=== PATIENT | male | born 1990 | race Caucasian/White ===

== ENCOUNTER 2017-11-08 10:11 | Inpatient (IN) | payer OTHER ==
[2017-11-08 10:50] VITALS: BMI 28.6
--- NOTE | 2017-11-08 11:07 | HP ---
CIWA Score - CIWA Score Nausea/Vomitin-Mild Nausea/No Vomiting Muscle Tremors: 4-Moderate,w/Arms Extend Anxiety: 4-Mod. Anxious/Guarded Agitation: 4-Moderately Restless Paroxysmal Sweats: 3 Orientation: 0-Oriented Tacttile Disturbances: 0-None Auditory Disturbances: 0-None Visual Disturbances: 0-None Headache: 2-Mild CIWA-Ar Total Score: 18 Admission ROS S - HPI Chief Complaint: I am sick of doing this abuse and I dont want to . Allergies/Adverse Reactions: Allergies Allergy/AdvReac Type Severity Reaction Status Date / Time Sulfa (Sulfonamide AdvReac Verified 11/08/17 10:58 Antibiotics) History of Present Illness: Pt is a 27yr old male with a history of benzodiazapine dependence seeking detox for treatment. Pt belongs to a [facility] MMTP he received last dose of methadone of 160mg yesterday and was given 2 take home bottles. However today he states his two take home bottles are empty and cannot remember what happened because he was intoxicated. Pt has two empty bottles in his possession. Pt is aware he cannot get medicated until his dose becomes verified. Exam Limitations: No Limitations - Ebola screening Have you traveled outside of the country in the last 21 days: No (N) Have you had contact with anyone from an Ebola affected area: No Have you been sick,other than usual withdrawal symptoms: No Do you have a fever: No - Review of Systems Constitutional: Chills, Diaphoresis, Night Sweats EENT: reports: Tearing, Nose Congestion Respiratory: reports: No Symptoms reported Cardiac: reports: Syncope GI: reports: Nausea, Poor Appetite, Poor Fluid Intake : reports: No Symptoms Reported Musculoskeletal: reports: Back Pain Integumentary: reports: Flushing, Sweating Neuro: reports: Tingling, Tremors Endocrine: reports: Excessive Sweating, Flushing, Intolerance to Cold, Intolerance to Heat Hematology: reports: No Symptoms Reported Psychiatric: reports: Judgement Intact, Mood/Affect Appropiate, Orientated x3, Agitated, Anxious Other Systems: Reviewed and Negative Patient History - Patient Medical History Hx Anemia: No Hx Asthma: No Hx Chronic Obstructive Pulmonary Disease (COPD): No Hx Cancer: No Hx Cardiac Disorders: No Hx Congestive Heart Failure: No Hx Hypertension: No Hx Hypercholesterolemia: No Hx Pacemaker: No HX Cerebrovascular Accident: No Hx Seizures: Yes (last seizure 2012) Hx Dementia: No Hx Diabetes: No Hx Gastrointestinal Disorders: No Hx Liver Disease: No Hx Genitourinary Disorders: No Hx Sexually Transmitted Disorders: No Hx Renal Disease (ESRD): No Hx Thyroid Disease: No Hx Human Immunodeficiency Virus (HIV): No (denies) Hx Hepatitis C: No (denies) Hx Depression: Yes Hx Suicide Attempt: No (denies) Hx Bipolar Disorder: No Hx Schizophrenia: No - Patient Surgical History Hx Orthopedic Surgery: Yes (ACL reconstruction left knee 2006) - PPD History Previous Implant?: Yes Documented Results: Negative w/o proof PPD to be Administered?: Yes - Reproductive History Patient is a Female of Child Bearing Age (11 -55 yrs old): No - Smoking Cessation Smoking history: Current every day smoker Have you smoked in the past 12 months: Yes Hx Chewing Tobacco Use: No Initiated information on smoking cessation: Yes 'Breaking Loose' booklet given: 11/08/17 - Substance & Tx. History Hx Alcohol Use: Yes Hx Substance Use: Yes Substance Use Type: Alcohol, Cocaine, Heroin, Opiates, Prescribed, Tranquilizers Hx Substance Use Treatment: Yes (last detox [facility] 09/2017) - Substances Abused Alcohol Route: Oral Frequency: 1-3 times last 30 days Amount used: 1 pint Age of first use: 12 Date of Last Use: 11/07/17 Benzodiazepine (Klonopin) Route: Oral Frequency: Daily Amount used: 6-8mg Age of first use: 16 Date of Last Use: 11/08/17 Alprazolam (Xanax) Route: Oral Frequency: Daily Amount used: 12mg Age of first use: 16 Date of Last Use: 11/08/17 Family Disease History - Family Disease History Family Disease History: Heart Disease: Mother Admission Physical Exam [facility] - Vital Signs Vital Signs: Vital Signs - 24 hr 11/08/17 10:48 Temperature 98.7 F Pulse Rate 62 Respiratory 18 Rate Blood Pressure 118/78 - Physical General Appearance: Yes: Disheveled, Moderate Distress, Tremorous, Irritable, Sweating, Anxious HEENTM: Yes: Hearing grossly Normal Respiratory: Yes: Lungs Clear, Normal Breath Sounds, No Respiratory Distress Neck: Yes: No masses,lesions,Nodules Breast: Yes: Within Normal Limits Cardiology: Yes: Regular Rhythm, Regular Rate, S1, S2 Abdominal: Yes: Normal Bowel Sounds, Non Tender, Soft Genitourinary: Yes: Within Normal Limits Back: Yes: Normal Inspection Musculoskeletal: Yes: Back pain Extremities: Yes: Normal Capillary Refill, Non-Tender, Tremors Neurological: Yes: Fully Oriented, Alert, Normal Response Integumentary: Yes: Normal Color, Diaphoresis Lymphatic: Yes: Within Normal Limits - Diagnostic (1) Methadone maintenance therapy patient Current Visit: Yes Status: Chronic Comment: pt has two empty bottles of methadone for thursday and thursday his last dose he states he received was satuday for 160mg. Pending verification. (2) Cocaine abuse Current Visit: Yes Status: Chronic (3) Klonopin use disorder, moderate, dependence Current Visit: Yes Status: Chronic (4) Nicotine dependence Current Visit: Yes Status: Chronic Qualifiers: Nicotine product type: cigarettes Substance use status: uncomplicated Qualified Code(s): F17.210 - Nicotine dependence, cigarettes, uncomplicated (5) Alcohol abuse Current Visit: Yes Status: Chronic Cleared for Admission [facility] - Detox or Rehab [facility] Level of Care: Medically Managed Detox Regimen/Protocol: Valium [facility] Breath Alcohol Content Breath Alcohol Content: 0 Urine Drug Screen - Results Drug Screen Negative: No Urine Drug Screen Results: LUISA-Cocaine, BZO-Benzodiazepines, MTD-Methadone, TCA- Tricyclic Antidepress, OXY-Oxycodone
[2017-11-08] MEDS ORDERED: MAGNESIUM CITRATE 300 ML BOTTLE PO PRN (11:20)
[2017-11-08] MEDS ORDERED: diazePAM 5 MG TABLET PO ONE (11:20)
[2017-11-08] MEDS ORDERED: LOPERAMIDE HCL 2 MG CAPSULE PO PRN (11:20)
[2017-11-08] MEDS ORDERED: P-EPHED 60MG/TRIPROLIDI 2.5MG TABLET PO PRN (11:20)
[2017-11-08] MEDS ORDERED: MENTHOL/PHENOL 1 EACH UD MM PRN (11:20)
[2017-11-08] MEDS ORDERED: MAGNESIUM HYDROX 2400MG/30ML ORAL SUSPENSION 30 ML CUP PO PRN (11:20)
[2017-11-08] MEDS ORDERED: MAG HYDROX/AL HYDROX/SIMETH 30 ML UNIT-DOSE CUP PO PRN (11:20)
[2017-11-08] MEDS ORDERED: guaiFENesin/D-METHORPHAN HB 10 ML UNIT-DOSE CUPS PO PRN (11:20)
[2017-11-08] MEDS ORDERED: IBUPROFEN 400 MG TABLET (FP) PO PRN (11:20)
[2017-11-08] MEDS ORDERED: ACETAMINOPHEN 325 MG TABLET (FP) PO PRN (11:52)
--- NOTE | 2017-11-08 13:12 | PN ---
S Progress Note Note: pt was sitting in our admitting dept when he nodded off and fell on his elbow. pt also hit his head but he claims he didnt. Spoke with Dr. Haywood and gave him report for this pt to be evaluated.
[2017-11-08] MEDS: diazePAM 5 MG TABLET PO SCH ×2 (17:44→22:44)
--- NOTE | 2017-11-08 18:39 | PN ---
[facility] Progress Note Note: ekg sinus bradycardia with sinus arrhythmia 47.min prolong qt 556/492 no chest pain,no sob repeat ekg in am at 0900am close monitoring
[2017-11-08 22:05] LABS: URINE APPEARANCE TURBID; URINE BILIRUBIN NEGATIVE (<2.0 mg/dL); URINE COLOR YELLOW; URINE GLUCOSE (UA) NEGATIVE (NEGATIVE); URINE KETONE NEGATIVE (NEGATIVE); URINE LEUK ESTERASE TRACE (NEGATIVE); URINE NITRITE NEGATIVE (NEGATIVE)
[2017-11-08 22:06] LABS: URINE PROTEIN 1+ (NEGATIVE)
[2017-11-08 22:09] LABS: URINE MUCUS FEW
[2017-11-08] MEDS: THIAMINE HCL 100 MG TABLET (FP) PO SCH (22:44)
[2017-11-08] MEDS: cloNIDine HCL 0.1 MG TABLET PO SCH (22:44)
[2017-11-09] MEDS: diazePAM 5 MG TABLET PO SCH ×3 (06:08→22:52)
--- NOTE | 2017-11-09 08:50 | EKG ---
Test Reason : Blood Pressure : / mmHG Vent. Rate : 047 BPM Atrial Rate : 047 BPM P-R Int : 174 ms QRS Dur : 084 ms QT Int : 556 ms P-R-T Axes : 048 057 050 degrees QTc Int : 492 ms SINUS BRADYCARDIA WITH SINUS ARRHYTHMIA PROLONGED QT ABNORMAL ECG NO PREVIOUS ECGS AVAILABLE CLINICAL CORRELATION IS RECOMMENDED BASELINE ARTIFACT Confirmed by LILY GARCIA, CASH ([id number]) on 11/09/2017 8:49:54 AM Referred By: Confirmed By:CASH BAUTISTA MD
--- NOTE | 2017-11-09 10:03 | CONSULT ---
[facility] Psychiatric Consult - Data Date of interview: 11/09/17 Admission source: [facility] Identifying data: This is a 27 year old single male, unemployed and currently homeless. Substance Abuse History: alcohol 1 pint 3-4 times a month, XAnax up to 16 mg dails, Klonopin 6-8 mg daily, oxycodone daily. Medical History: Hep C, ACL reconstruction surgery left knee in 2006, neuropathic pain. Psychiatric History: Patient reports no history of psychiatric hospitalizations , no opd treatment, states he feels anxious. Physical/Sexual Abuse/Trauma History: denies Mental Status Exam - Mental Status Exam Alert and Oriented to: Place, Person Cognitive Function: Grossly Intact Patient Appearance: Unkempt Mood: Anxious Affect: Mood Congruent, Constricted Patient Behavior: Sedated, Fatigued Speech Pattern: Appropriate Voice Loudness: Normal Thought Process: Intact Hallucinations: Denies Suicidal Ideation: Denies Homicidal Ideation: Denies Insight/Judgement: Fair Sleep: Fair Appetite: Fair Psychiatric Findings - Problem List (Paige 1, 2,3) (1) Sedative, hypnotic or anxiolytic dependence Current Visit: Yes Status: Acute (2) Alcohol abuse Current Visit: Yes Status: Chronic (3) Anxiety disorder, unspecified Current Visit: Yes Status: Acute - Initial Treatment Plan Initial Treatment Plan: continue detox. protocol, patient made aware of vistaril 50 mg po q 4hrs prn
[2017-11-09] MEDS: diazePAM 5 MG TABLET PO PRN ×2 (10:24→22:21)
[2017-11-09] MEDS: hydrOXYzine PAMOATE 50 MG CAPSULE (FP) PO PRN (10:24)
[2017-11-09] MEDS: PRENATAL VITAMINS W/ FOLIC ACID TABLET (FP) PO SCH (10:24)
[2017-11-09] MEDS: NICOTINE 21 MG/24 HOURS TOPICAL PATCH TD SCH (10:25)
[2017-11-09] MEDS: cloNIDine HCL 0.1 MG TABLET PO SCH ×2 (10:26→22:19)
[2017-11-09 10:30] LABS: HEMATOCRIT 30.4 % (35.4-49); HEMOGLOBIN 10.5 GM/dL (11.7-16.9); MCH 29.1 pg (25.7-33.7); MCHC 34.6 g/dl (32.0-35.9); MEAN CELL VOLUME 84.3 fl (80-96); MEAN PLT VOLUME 7.7 fl (7.5-11.1); PLATELET COUNT 200 K/MM3 (134-434); RBC 3.61 M/mm3 (4.00-5.60); RDW 13.7 % (11.9-15.9); WHITE BLOOD COUNT 4.6 K/mm3 (4.0-10.0)
[2017-11-09 10:47] LABS: ALK PHOS 59 U/L (45-117); ANION GAP 4 (8-16); BILIRUBIN,TOTAL 0.3 mg/dL (0.2-1.0); BLOOD UREA NITROGEN 14 mg/dL (7-18); CALCIUM 8.1 mg/dL (8.5-10.1); CHLORIDE 105 mmol/L (98-107); CO2 31 mmol/L (21-32); CREATININE 0.8 mg/dL (0.7-1.3); GLUCOSE,RANDOM 99 mg/dL (74-106); POTASSIUM 3.9 mmol/L (3.5-5.1); SGOT/AST 78 U/L (15-37); SGPT/ALT 104 U/L (12-78); SODIUM 140 mmol/L (136-145); TOT PROT 6.7 g/dl (6.4-8.2)
--- NOTE | 2017-11-09 12:20 | PN ---
S CIWA - CIWA Score Nausea/Vomitin Muscle Tremors: 3 Anxiety: 3 Agitation: 2 Paroxysmal Sweats: 1-Minimal Palms Moist Orientation: 0-Oriented Tacttile Disturbances: 1-Very Mild Itch/Numbness Auditory Disturbances: 1-Very Mild Visual Disturbances: 0-None Headache: 2-Mild CIWA-Ar Total Score: 16 B[facility] Progress Note (SOAP) Subjective: ALERT,IRRITABLE,ANXIOUS,INTERRUPTED SLEEP,TREMOR Objective: 11/09/17 12:17 Vital Signs Temperature 97.1 F L 11/09/17 09:16 Pulse Rate 62 11/09/17 09:16 Respiratory Rate 16 11/09/17 09:16 Blood Pressure 108/59 11/09/17 09:16 O2 Sat by Pulse Oximetry (%) EKG SINUS BRADYCARDIA PROLONG QT 478/473 NO CHEST PAIN,NO SOB,NO DIZZINESS Assessment: 11/09/17 12:19 WITHDRAWAL SYMPTOM Plan: CONTINUE DETOX
--- NOTE | 2017-11-09 13:46 | EKG ---
Test Reason : Blood Pressure : / mmHG Vent. Rate : 059 BPM Atrial Rate : 059 BPM P-R Int : 154 ms QRS Dur : 086 ms QT Int : 478 ms P-R-T Axes : 009 063 055 degrees QTc Int : 473 ms SINUS BRADYCARDIA NONSPECIFIC T WAVE ABNORMALITY PROLONGED QT ABNORMAL ECG WHEN COMPARED WITH ECG OF 08-NOV-2017 17:46, NO SIGNIFICANT CHANGE WAS FOUND CLINICAL CORRELATION IS RECOMMENDED Confirmed by LILY GARCIA, CASH ([id number]) on 11/09/2017 1:46:07 PM Referred By: Confirmed By:CASH BAUTISTA MD
[2017-11-09] MEDS: THIAMINE HCL 100 MG TABLET (FP) PO SCH (22:19)
[2017-11-10] MEDS: METHADONE HCL 40 MG DISPERSABLE TABLET PO SCH (07:42)
[2017-11-10] MEDS: PRENATAL VITAMINS W/ FOLIC ACID TABLET (FP) PO SCH (10:14)
[2017-11-10] MEDS: diazePAM 5 MG TABLET PO SCH ×2 (10:15→22:14)
[2017-11-10] MEDS: hydrOXYzine PAMOATE 50 MG CAPSULE (FP) PO PRN (10:15)
[2017-11-10] MEDS: NICOTINE 21 MG/24 HOURS TOPICAL PATCH TD SCH (10:15)
--- NOTE | 2017-11-10 11:51 | PN ---
S CIWA - CIWA Score Nausea/Vomitin Muscle Tremors: 3 Anxiety: 3 Agitation: 2 Paroxysmal Sweats: 1-Minimal Palms Moist Orientation: 0-Oriented Tacttile Disturbances: 1-Very Mild Itch/Numbness Auditory Disturbances: 1-Very Mild Visual Disturbances: 0-None Headache: 2-Mild CIWA-Ar Total Score: 16 [facility] Progress Note (SOAP) Subjective: ALERT,IRRITABLE,ANXIOUS,INTERRUPTED SLEEP,TREMOR Objective: 11/10/17 11:49 Vital Signs Temperature 98.8 F 11/10/17 10:30 Pulse Rate 76 11/10/17 10:30 Respiratory Rate 18 11/10/17 10:30 Blood Pressure 126/59 11/10/17 10:30 O2 Sat by Pulse Oximetry (%) Laboratory Last Values WBC 4.6 K/mm3 (4.0-10.0) 11/09/17 07:55 RBC 3.61 M/mm3 (4.00-5.60) L 11/09/17 07:55 Hgb 10.5 GM/dL (11.7-16.9) L 11/09/17 07:55 Hct 30.4 % (35.4-49) L 11/09/17 07:55 MCV 84.3 fl (80-96) 11/09/17 07:55 MCH 29.1 pg (25.7-33.7) 11/09/17 07:55 MCHC 34.6 g/dl (32.0-35.9) 11/09/17 07:55 RDW 13.7 % (11.9-15.9) 11/09/17 07:55 Plt Count 200 K/MM3 (134-434) 11/09/17 07:55 MPV 7.7 fl (7.5-11.1) 11/09/17 07:55 Sodium 140 mmol/L (136-145) 11/09/17 07:55 Potassium 3.9 mmol/L (3.5-5.1) 11/09/17 07:55 Chloride 105 mmol/L (98-107) 11/09/17 07:55 Carbon Dioxide 31 mmol/L (21-32) 11/09/17 07:55 Anion Gap 4 (8-16) L 11/09/17 07:55 BUN 14 mg/dL (7-18) 11/09/17 07:55 Creatinine 0.8 mg/dL (0.7-1.3) 11/09/17 07:55 Creat Clearance w eGFR > 60 (>60) 11/09/17 07:55 Random Glucose 99 mg/dL (74-106) 11/09/17 07:55 Calcium 8.1 mg/dL (8.5-10.1) L 11/09/17 07:55 Total Bilirubin 0.3 mg/dL (0.2-1.0) 11/09/17 07:55 AST 78 U/L (15-37) H 11/09/17 07:55 ALT 104 U/L (12-78) H 11/09/17 07:55 Alkaline Phosphatase 59 U/L (45-117) 11/09/17 07:55 Total Protein 6.7 g/dl (6.4-8.2) 11/09/17 07:55 Albumin 3.0 g/dl (3.4-5.0) L 11/09/17 07:55 Urine Color Yellow 11/08/17 18:17 Urine Appearance Turbid 11/08/17 18:17 Urine pH 5.0 (5.0-8.0) 11/08/17 18:17 Ur Specific [place] 1.031 (1.001-1.035) 11/08/17 18:17 Urine Protein 1+ (NEGATIVE) H 11/08/17 18:17 Urine Glucose (UA) Negative (NEGATIVE) 11/08/17 18:17 Urine Ketones Negative (NEGATIVE) 11/08/17 18:17 Urine Blood Negative (NEGATIVE) 11/08/17 18:17 Urine Nitrite Negative (NEGATIVE) 11/08/17 18:17 Urine Bilirubin Negative (<2.0 mg/dL) 11/08/17 18:17 Urine Urobilinogen 2.0 mg/dL (0.2-1.0) 11/08/17 18:17 Ur Leukocyte Esterase Trace (NEGATIVE) 11/08/17 18:17 Urine WBC (Auto) 146 /hpf (3-5) 11/08/17 18:17 Urine RBC (Auto) 4 /hpf (0-3) 11/08/17 18:17 Urine Mucus Few 11/08/17 18:17 RPR Titer Nonreactive (NONREACTIVE) 11/09/17 07:55 Assessment: 05/29/18 11:50 WITHDRAWAL SYMPTOM Plan: CONTINUE DETOX,REPEAT UA,URINE FOR C/S R/O UTI
[2017-11-10] MEDS: FLUOCINONIDE 0.05% TOP OINT (60 GM TUBE) TP SCH ×2 (15:29→22:14)
[2017-11-10 20:26] LABS: URINE APPEARANCE CLEAR; URINE BILIRUBIN NEGATIVE (<2.0 mg/dL); URINE COLOR LTYELLOW; URINE GLUCOSE (UA) NEGATIVE (NEGATIVE); URINE KETONE NEGATIVE (NEGATIVE); URINE LEUK ESTERASE TRACE (NEGATIVE); URINE NITRITE NEGATIVE (NEGATIVE); URINE PROTEIN NEGATIVE (NEGATIVE); URINE UROBILINOGEN NEGATIVE mg/dL (0.2-1.0)
[2017-11-10] MEDS: MELATONIN 5 MG TABLETS PO PRN (22:14)
[2017-11-10] MEDS: THIAMINE HCL 100 MG TABLET (FP) PO SCH (22:14)
[2017-11-11] MEDS: METHADONE HCL 40 MG DISPERSABLE TABLET PO SCH (05:32)
[2017-11-11] MEDS: NICOTINE POLACRILEX 4 MG GUM BUC PRN ×4 (07:37→22:07)
[2017-11-11] MEDS: PRENATAL VITAMINS W/ FOLIC ACID TABLET (FP) PO SCH (10:27)
[2017-11-11] MEDS: diazePAM 5 MG TABLET PO SCH ×2 (10:28→22:07)
[2017-11-11] MEDS: NICOTINE 21 MG/24 HOURS TOPICAL PATCH TD SCH (10:28)
[2017-11-11] MEDS: FLUOCINONIDE 0.05% TOP OINT (60 GM TUBE) TP SCH ×2 (10:28→22:06)
--- NOTE | 2017-11-11 10:31 | PN ---
[facility] Progress Note (SOAP) Subjective: ALERT,IRRITABLE,INTERRUPTED SLEEP, Objective: 11/11/17 10:30 Vital Signs Temperature 97.9 F 11/11/17 09:51 Pulse Rate 70 11/11/17 09:51 Respiratory Rate 18 11/11/17 09:51 Blood Pressure 116/66 11/11/17 09:51 O2 Sat by Pulse Oximetry (%) 11/11/17 10:32 Laboratory Results - last 24 hr 11/10/17 13:30 Urine Color Ltyellow Urine Appearance Clear Urine pH 7.0 D Ur Specific [place] 1.004 Urine Protein Negative Urine Glucose (UA) Negative Urine Ketones Negative Urine Blood Negative Urine Nitrite Negative Urine Bilirubin Negative Urine Urobilinogen Negative Ur Leukocyte Esterase Trace Urine WBC (Auto) 1 Urine RBC (Auto) <1 Assessment: 11/11/17 10:32 WITHDRAWAL SYMPTOM Plan: CONTINUE DETOX,DISCHARGE IN AM,URINE FOR C/S PENDING
[2017-11-11] MEDS: THIAMINE HCL 100 MG TABLET (FP) PO SCH (22:07)
[2017-11-11] MEDS: MELATONIN 5 MG TABLETS PO PRN (22:07)
[2017-11-12] MEDS: METHADONE HCL 40 MG DISPERSABLE TABLET PO SCH (05:26)
[2017-11-12 07:28] VITALS: BP 141/66; PULSE 79; TEMP 97.3
--- NOTE | 2017-11-12 08:24 | PN ---
S Progress Note (SOAP) Subjective: alert,no complaint Objective: 11/12/17 08:23 Vital Signs Temperature 97.3 F L 11/12/17 07:27 Pulse Rate 79 11/12/17 07:27 Respiratory Rate 18 11/12/17 07:27 Blood Pressure 141/66 11/12/17 07:27 O2 Sat by Pulse Oximetry (%) Assessment: 11/12/17 08:23 detox completed,o withdrawal symptom Plan: discharge today,follow up with after care program as arrangement
--- NOTE | 2017-11-12 08:28 | DS ---
[facility] Detox Discharge Summary Admission Date: 11/08/17 Discharge Date: 11/12/17 - History Present History: Alcohol Dependence, Cocaine Dependence, Sedative Dependence, MMTP Additional Comments: nicotine dependence Pertinent Past History: follow up with after care program as arrangement - Physical Exam Results Vital Signs: Vital Signs Temperature 97.3 F L 11/12/17 07:27 Pulse Rate 79 11/12/17 07:27 Respiratory Rate 18 11/12/17 07:27 Blood Pressure 141/66 11/12/17 07:27 O2 Sat by Pulse Oximetry (%) Pertinent Admission Physical Exam Findings: withdrawal sign Vital Signs Temperature 97.3 F L 11/12/17 07:27 Pulse Rate 79 11/12/17 07:27 Respiratory Rate 18 11/12/17 07:27 Blood Pressure 141/66 11/12/17 07:27 O2 Sat by Pulse Oximetry (%) Laboratory Last Values WBC 4.6 K/mm3 (4.0-10.0) 11/09/17 07:55 RBC 3.61 M/mm3 (4.00-5.60) L 11/09/17 07:55 Hgb 10.5 GM/dL (11.7-16.9) L 11/09/17 07:55 Hct 30.4 % (35.4-49) L 11/09/17 07:55 MCV 84.3 fl (80-96) 11/09/17 07:55 MCH 29.1 pg (25.7-33.7) 11/09/17 07:55 MCHC 34.6 g/dl (32.0-35.9) 11/09/17 07:55 RDW 13.7 % (11.9-15.9) 11/09/17 07:55 Plt Count 200 K/MM3 (134-434) 11/09/17 07:55 MPV 7.7 fl (7.5-11.1) 11/09/17 07:55 Sodium 140 mmol/L (136-145) 11/09/17 07:55 Potassium 3.9 mmol/L (3.5-5.1) 11/09/17 07:55 Chloride 105 mmol/L (98-107) 11/09/17 07:55 Carbon Dioxide 31 mmol/L (21-32) 11/09/17 07:55 Anion Gap 4 (8-16) L 11/09/17 07:55 BUN 14 mg/dL (7-18) 11/09/17 07:55 Creatinine 0.8 mg/dL (0.7-1.3) 11/09/17 07:55 Creat Clearance w eGFR > 60 (>60) 11/09/17 07:55 Random Glucose 99 mg/dL (74-106) 11/09/17 07:55 Calcium 8.1 mg/dL (8.5-10.1) L 11/09/17 07:55 Total Bilirubin 0.3 mg/dL (0.2-1.0) 11/09/17 07:55 AST 78 U/L (15-37) H 11/09/17 07:55 ALT 104 U/L (12-78) H 11/09/17 07:55 Alkaline Phosphatase 59 U/L (45-117) 11/09/17 07:55 Total Protein 6.7 g/dl (6.4-8.2) 11/09/17 07:55 Albumin 3.0 g/dl (3.4-5.0) L 11/09/17 07:55 Urine Color Ltyellow 11/10/17 13:30 Urine Appearance Clear 11/10/17 13:30 Urine pH 7.0 (5.0-8.0) D 11/10/17 13:30 Ur Specific [place] 1.004 (1.001-1.035) 11/10/17 13:30 Urine Protein Negative (NEGATIVE) 11/10/17 13:30 Urine Glucose (UA) Negative (NEGATIVE) 11/10/17 13:30 Urine Ketones Negative (NEGATIVE) 11/10/17 13:30 Urine Blood Negative (NEGATIVE) 11/10/17 13:30 Urine Nitrite Negative (NEGATIVE) 11/10/17 13:30 Urine Bilirubin Negative (<2.0 mg/dL) 11/10/17 13:30 Urine Urobilinogen Negative mg/dL (0.2-1.0) 11/10/17 13:30 Ur Leukocyte Esterase Trace (NEGATIVE) 11/10/17 13:30 Urine WBC (Auto) 1 /hpf (3-5) 11/10/17 13:30 Urine RBC (Auto) <1 /hpf (0-3) 11/10/17 13:30 Urine Mucus Few 11/08/17 18:17 RPR Titer Nonreactive (NONREACTIVE) 11/09/17 07:55 s and symptom - Treatment Hospital Course: Detox Protocol Followed, Detoxed Safely, Responded well, Discharged Condition Good Patient has Accepted a Rehab Referral to: declined - Medication Discharge Medications: Ambulatory Orders Gabapentin [Neurontin] 600 mg PO TID 11/08/17 - Diagnosis (1) Sedative, hypnotic or anxiolytic dependence Current Visit: Yes Status: Acute (2) Alcohol abuse Current Visit: Yes Status: Chronic (3) Cocaine abuse Current Visit: Yes Status: Chronic (4) Methadone maintenance therapy patient Current Visit: Yes Status: Chronic (5) Nicotine dependence Current Visit: Yes Status: Chronic Qualifiers: Nicotine product type: cigarettes Substance use status: uncomplicated Qualified Code(s): F17.210 - Nicotine dependence, cigarettes, uncomplicated (6) Closed head injury Current Visit: No Status: Acute - AMA Did Patient Leave Against Medical Advice: No
[2017-11-12] MEDS ORDERED: diazePAM 5 MG TABLET PO SCH (10:00)
== END 2017-11-12 08:40 | disposition home or self-care (01) | DRG 773 ==
LOC: YASAS 10:11 → Y6N 12:36
PROVIDERS: ADMIT Surgery; ATTEND Surgery
PROC: HZ2ZZZZ Detoxification Services for Substance Abuse Treatment (ICD-10-PCS; principal; 2017-11-08)
DX: F13.230 Sedative, hypnotic or anxiolytic dependence with withdrawal, uncomplicated (principal); F11.20 Opioid dependence, uncomplicated; F10.10 Alcohol abuse, uncomplicated; F14.10 Cocaine abuse, uncomplicated; F17.210 Nicotine dependence, cigarettes, uncomplicated; F41.9 Anxiety disorder, unspecified; N39.0 Urinary tract infection, site not specified; R00.1 Bradycardia, unspecified; I45.81 Long QT syndrome; B18.2 Chronic viral hepatitis C; S09.90XA Unspecified injury of head, initial encounter; Z86.69 Personal history of other diseases of the nervous system and sense organs; W07.XXXA Fall from chair, initial encounter; Y93.89 Activity, other specified; Y92.238 Other place in hospital as the place of occurrence of the external cause; Z59.0 Homelessness
CPT/HCPCS: 36415; 80053; 81003; 81015; 85027; 86593; 87086; 93005; 93010; J0735

== ENCOUNTER 2017-11-08 13:44 | Emergency (ER) | payer OTHER ==
[2017-11-08 13:54] VITALS: BMI 28.6
[2017-11-08] MEDS ORDERED: SODIUM CHLORIDE 1,000 ML IV STA (13:57)
--- NOTE | 2017-11-08 15:08 | PDOC ---
History of Present Illness - General Chief Complaint: Injury Stated Complaint: FALL Time Seen by Provider: 11/08/17 13:56 History Source: Patient, Primary Care Provider Exam Limitations: Intoxication, Other - History of Present Illness Initial Comments: 11/08/17 15:08 27-year-old male with illicit drug and alcohol usage presents the ED status post head injury. As per staff at [facility] patient was seen in [place] chair when he fell forward striking the front of his head. Patient had no LOC but was groggy prior to the fall and continues to be groggy only arousable with tactile and loud verbal stimuli. Patient during discussion denied discomfort, headache, or visual changes. Occurred: reports: just prior to arrival Severity: reports: moderate Pain Location: reports: head Method of Injury: Yes: fall Loss of Consciousness: no loss of consciousness Associated Symptoms (Fall): denies symptoms Past History - Travel Traveled outside of the country in the last 30 days: No - Past Medical History Allergies/Adverse Reactions: Allergies Allergy/AdvReac Type Severity Reaction Status Date / Time Sulfa (Sulfonamide AdvReac Verified 11/08/17 10:58 Antibiotics) Home Medications: Ambulatory Orders Gabapentin [Neurontin] 600 mg PO TID 11/08/17 Anemia: No Asthma: No Cancer: No Cardiac Disorders: No CVA: No COPD: No CHF: No Dementia: No Diabetes: No GI Disorders: No Disorders: No HTN: No Hypercholesterolemia: No Kidney Stones: No Liver Disease: No Seizures: No Thyroid Disease: No - Surgical History Abdominal Surgery: No Appendectomy: No Cardiac Surgery: No Cholecystectomy: No Lung Surgery: No Neurologic Surgery: No Orthopedic Surgery: Yes (ACL reconstruction left knee 2006) - Reproductive History Testicular Surgery: No - Suicide/Smoking/Psychosocial Hx Smoking History: Current every day smoker Have you smoked in the past 12 months: Yes Number of Cigarettes Smoked Daily: 30 Information on smoking cessation initiated: No 'Breaking Loose' booklet given: 11/08/17 Hx Alcohol Use: Yes Drug/Substance Use Hx: Yes Substance Use Type: Alcohol, Cocaine, Heroin, Opiates, Prescribed, Tranquilizers Hx Substance Use Treatment: Yes ([facility] SE[facility] 2017) Patient Lives Alone: No Trauma Specific PMHX - Complaint Specific PMHX Arthritis: No Review of Systems - Review of Systems Able to Perform ROS?: Yes Constitutional: No: Symptoms Reported HEENTM: No: Symptoms Reported Respiratory: No: Symptoms reported Cardiac (ROS): No: Symptoms Reported ABD/GI: No: Symptoms Reported : No: Symptoms Reported Musculoskeletal: No: Symptoms Reported Integumentary: No: Symptoms Reported Neurological: No: Symptoms reported *Physical Exam - Vital Signs Last Vital Signs Temp Pulse Resp BP Pulse Ox 97.3 F L 57 L 18 102/54 98 11/08/17 13:47 11/08/17 13:47 11/08/17 13:47 11/08/17 13:47 11/08/17 13:47 - Physical Exam General Appearance: Yes: Nourished, Disheveled, Intoxicated. No: Apparent Distress HEENT: positive: KRISTOPHER Neck: positive: Supple. negative: Tender, Decreased range of motion Respiratory/Chest: positive: Lungs Clear, Normal Breath Sounds. negative: Respiratory Distress, Accessory Muscle Use Cardiovascular: positive: Regular Rhythm, Bradycardia. negative: Regular Rate, Murmur Gastrointestinal/Abdominal: positive: Soft. negative: Tenderness Integumentary: positive: Normal Color, Warm, Moist. negative: Swelling, Ecchymosis Neurologic: positive: Normal Mood/Affect, Motor Strength 5/5, Respond to painful stimul, Responsive Medical Decision Making - Medical Decision Making 11/08/17 14:11 Patient here for evaluation "has injury. Patient on exam appeared groggy but arousable. Patient with no acute findings on exam. Patient ordered for head CT, IV access and IV fluids. 11/08/17 15:12 CT shows no evidence of acute intracranial hemorrhage or lesion. Patient will be sent back to [facility] for drug and alcohol rehabilitation/detox *DC/Admit/Observation/Transfer Diagnosis at time of Disposition: Closed head injury - Discharge Dispostion Disposition: HOME Condition at time of disposition: Good - Referrals - Patient Instructions Printed Discharge Instructions: DI for Closed Head Injury Additional Instructions: Please observe for worsening symptoms such as vomiting, change in mental status , or uncoordinated movements. If so return to the ED. - Post Discharge Activity
[2017-11-08 16:06] VITALS: BP 103/61; PULSE 59; TEMP 98.4
--- NOTE | 2017-11-08 18:28 | PN ---
[facility] Progress Note Note: patient is medically clear to return to [facility] for continuation of detox,alert, oriented Vital Signs Temperature 98.4 F 11/08/17 16:05 Pulse Rate 59 L 11/08/17 16:05 Respiratory Rate 18 11/08/17 16:05 Blood Pressure 103/61 11/08/17 16:05 O2 Sat by Pulse Oximetry (%) 98 11/08/17 16:05 ct of head at [facility] er reported negative for bleeding patient has been on fall protocol 1 and fall precaution continue detox,close monitoring
== END 2017-11-08 16:58 | disposition home or self-care (01) ==
LOC: JER 13:44
PROC: 3E0337Z Introduction of Electrolytic and Water Balance Substance into Peripheral Vein, Percutaneous Approach (ICD-10-PCS; principal; 2017-11-08)
DX: S09.8XXA Other specified injuries of head, initial encounter (principal); W07.XXXA Fall from chair, initial encounter; Y93.89 Activity, other specified; Y92.89 Other specified places as the place of occurrence of the external cause; Y99.8 Other external cause status; F11.10 Opioid abuse, uncomplicated; F13.10 Sedative, hypnotic or anxiolytic abuse, uncomplicated; F10.10 Alcohol abuse, uncomplicated; F14.10 Cocaine abuse, uncomplicated; F17.210 Nicotine dependence, cigarettes, uncomplicated; Z59.0 Homelessness
CPT/HCPCS: 70450-TC; 96360; 99282-25; J7030

== ENCOUNTER 2019-03-14 16:51 | Inpatient (IN) | payer OTHER ==
[2019-03-14 18:55] VITALS: BMI 32.8
--- NOTE | 2019-03-14 20:19 | HP ---
CIWA Score Nausea/Vomitin Muscle Tremors: None Anxiety: 4-Mod. Anxious/Guarded Agitation: 4-Moderately Restless Paroxysmal Sweats: 3 Orientation: 0-Oriented Tacttile Disturbances: 3-Moderate Itch/Numb/Burn Auditory Disturbances: 0-None Visual Disturbances: 3-Moderate Sensitivity (to bright lights) Headache: 2-Mild CIWA-Ar Total Score: 24 - Admission Criteria [facility] Guidelines: Admission for Medically Managed Detox: Requires at least one of the followin. CIWA greater than 12 2. Seizures within the past 24 hours 3. Delirium tremens within the past 24 hours 4. Hallucinations within the past 24 hours 5. Acute intervention needed for co occurring medical disorder 6. Acute intervention needed for co occurring psychiatric disorder 7. Severe withdrawal that cannot be handled at a lower level of care (continued vomiting, continued diarrhea, abnormal vital signs) requiring intravenous medication and/or fluids 8. Patient presents the following: CIWA greater than 12, Acute intervention needed for co-occurring med or psych disorder Admission Criteria Met: Admission criteria met Admitting History and Physical - Smoking History Smoking history: Current every day smoker Have you smoked in the past 12 months: Yes Aproximately how many cigarettes per day: 30 - Alcohol/Substance Use Hx Alcohol Use: Yes Admission ROS S - HPI Chief Complaint: C/O WITHDRAWAL SX'S. SEEKING DETOX Allergies/Adverse Reactions: Allergies Allergy/AdvReac Type Severity Reaction Status Date / Time Sulfa (Sulfonamide AdvReac Verified 03/14/19 18:48 Antibiotics) History of Present Illness: HERE FOR BENZO DETOX. CLIENT IS REFERRED BY HIS [facility]. HE IS KNOWN TO THIS PROGRAM. LAST HERE 10/2017. HE IS ALSO ON MMTP WITH A REPORTED DOSE OF 155MG. LDM TODAY PENDING VERIFICATION @ [facility]. CLIENT REPORTS A 6 MONTH CLEAN TIME RECENTLY, RELAPSING 2 MONTHS AGO. HE REPORTS A DAILY USE XANAX ALT WITH KLONOPINS WHEN HE CANT GET XANAX. REPORTS HX/O SEIZURES AND BLACK OUTS R/T WITHDRAWAL, NOTHING RECENTLY.DENIES SI/HI/AVH. CURRENTLY HOMLESS , HRA, DENIES LEGALS Exam Limitations: No Limitations - Ebola screening Have you traveled outside of the country in the last 21 days: No (N) Have you had contact with anyone from an Ebola affected area: No Do you have a fever: No - Review of Systems Constitutional: Chills, Loss of Appetite, Malaise, Night Sweats, Changes in sleep EENT: reports: Tinnitus, Dental Problems (MISSING TEETH) Respiratory: reports: No Symptoms reported Cardiac: reports: No Symptoms Reported GI: reports: Nausea, Poor Appetite, Poor Fluid Intake : reports: Frequency (AT NIGHT), Other (HESITANCY) Musculoskeletal: reports: Back Pain (CHRONIC), Neck Pain Integumentary: reports: Flushing, Pruritus (R UNDER ARM RASH), Rash (UNDER RIGHT ARM PIT), Other (JOCK ITCH) Neuro: reports: Headache, Seizure (R/T WITHDRAWAL) Endocrine: reports: No Symptoms Reported Hematology: reports: No Symptoms Reported Psychiatric: reports: Orientated x3, Agitated (IRRITABLE), Anxious, Depressed ( DENIES SI/HI) Other Systems: Reviewed and Negative Patient History - Patient Medical History Hx Anemia: Yes (HX/O) Hx Asthma: No Hx Chronic Obstructive Pulmonary Disease (COPD): No Hx Cancer: No Hx Cardiac Disorders: No Hx Congestive Heart Failure: No Hx Hypertension: No Hx Hypercholesterolemia: Yes (HX/O) Hx Pacemaker: No HX Cerebrovascular Accident: No Hx Seizures: Yes (R/T WITHDRAWAL) Hx Dementia: No Hx Diabetes: No Hx Gastrointestinal Disorders: Yes (CONSTIPATION CHRONIC) Hx Liver Disease: Yes (HEPC TX'ED) Hx Genitourinary Disorders: No Hx Sexually Transmitted Disorders: No Hx Renal Disease (ESRD): No Hx Thyroid Disease: No Hx Human Immunodeficiency Virus (HIV): No Hx Hepatitis C: Yes (HX/O-TX'ED) Hx Depression: Yes Hx Suicide Attempt: No Hx Bipolar Disorder: No Hx Schizophrenia: No Other Medical History: DENIES - Patient Surgical History Past Surgical History: Yes Hx Neurologic Surgery: No Hx Cataract Extraction: No Hx Cardiac Surgery: No Hx Lung Surgery: No Hx Breast Surgery: No Hx Breast Biopsy: No Hx Abdominal Surgery: No Hx Appendectomy: No Hx Cholecystectomy: No Hx Genitourinary Surgery: No Hx Section: No Hx Orthopedic Surgery: Yes (ACL reconstruction left knee 2006) Anesthesia Reaction: No - PPD History Previous Implant?: Yes Documented Results: Negative w/o proof Implanted On Prior [facility] Admission?: No PPD to be Administered?: Yes - Smoking Cessation Smoking history: Current every day smoker Have you smoked in the past 12 months: Yes Aproximately how many cigarettes per day: 20 Cigars Per Day: 0 Hx Chewing Tobacco Use: No Initiated information on smoking cessation: Yes 'Breaking Loose' booklet given: 03/14/19 - Substance & Tx. History Hx Alcohol Use: No Hx Substance Use: Yes Substance Use Type: Cocaine, Heroin, Prescribed (METHADONE), Tranquilizers ( XANAX) Hx Substance [facility]: [facility] - Substances abused Benzodiazepine (Klonopin) Substance route: Oral Frequency: Daily Amount used: 8 MG Age of first use: 21 Date of last use: 03/13/19 Alprazolam (Xanax) Substance route: Oral Frequency: Daily Amount used: 6 MG Age of first use: 21 Date of last use: 03/13/19 Cocaine Substance route: Injection Frequency: Daily Amount used: $50 Age of first use: 16 Date of last use: 03/13/19 Heroin Substance route: Injection Frequency: 1-3 times last 30 days Amount used: 1 BAG Age of first use: 18 Date of last use: 03/14/19 Admission Physical Exam [facility] - Vital Signs Vital Signs: Vital Signs - 24 hr 03/14/19 18:48 Temperature 97.0 F L Pulse Rate 51 L Respiratory 18 Rate Blood Pressure 132/74 - Physical General Appearance: Yes: Moderate Distress, Tremorous, Irritable, Anxious, Other (flushed unkept, malodurous) HEENTM: Yes: EOMI, Normocephalic, Normal Voice, KRISTOPHER, Pharynx Normal, Other ( poor dentition) Respiratory: Yes: Chest Non-Tender, Lungs Clear, Normal Breath Sounds, No Respiratory Distress, No Accessory Muscle Use Neck: Yes: No masses,lesions,Nodules, Supple, Trachea in good position Breast: Yes: Breast Exam Deferred Cardiology: Yes: Regular Rhythm, Regular Rate, S1, S2 Abdominal: Yes: Normal Bowel Sounds, Non Tender, Soft Genitourinary: Yes: Frequency (reported), Hesitency (reported) Back: Yes: Normal Inspection Musculoskeletal: Yes: Gait Steady Extremities: Yes: Normal Range of Motion, Non-Tender, Tremors Neurological: Yes: Fully Oriented, Alert, Motor Strength 5/5, Depressed Affect Integumentary: Yes: Warm, Rash (to right arm pit redness with c/o pruritis ecoriated srotum and redness to groin), Other (multiple straie due to weight loss. FEET UNKEPT DIRTY WITH DRY BLISTERS NOTED UNDER BOTH FEET) Lymphatic: Yes: Within Normal Limits - Diagnostic (1) Sedative, hypnotic or anxiolytic dependence with withdrawal, uncomplicated Current Visit: Yes Status: Acute (2) Substance induced mood disorder Current Visit: Yes Status: Suspected (3) Homeless Current Visit: Yes Status: Acute (4) Tinea corporis Current Visit: Yes Status: Acute (5) Cocaine abuse Current Visit: Yes Status: Acute (6) Methadone maintenance therapy patient Current Visit: Yes Status: Chronic (7) Nicotine dependence Current Visit: Yes Status: Chronic Qualifiers: Nicotine product type: cigarettes Substance use status: uncomplicated Qualified Code(s): F17.210 - Nicotine dependence, cigarettes, uncomplicated (8) Depressed affect Current Visit: Yes Status: Suspected Cleared for Admission S - Detox or Rehab [facility] Level of Care: Medically Managed Detox Regimen/Protocol: Valium Claeared for Rehab Admission: No Breathalyzer - Breathalyzer Breathalyzer: 0 Urine Drug Screen - Test Device Lot number: [id number] Expiration date: 11/12/20 - Control Is test valid?: Yes - Results Drug screen NEGATIVE: Yes Urine drug screen results: LUISA-Cocaine, FEN-Fentanyl, MOP-Opiates, OXY-Oxycodone , MTD-Methadone, BZO-Benzodiazepines Inpatient Rehab Admission - Rehab Decision to Admit Inpatient rehab admission?: No
[2019-03-14] MEDS ORDERED: DICYCLOMINE HCL 10 MG CAPSULE PO PRN (20:27)
[2019-03-14] MEDS ORDERED: MAGNESIUM HYDROX 2400MG/30ML ORAL SUSPENSION 30 ML CUP PO PRN (20:27)
[2019-03-14] MEDS ORDERED: IBUPROFEN 400 MG TABLET (FP) PO PRN (20:27)
[2019-03-14] MEDS ORDERED: hydrOXYzine PAMOATE 50 MG CAPSULE (FP) PO PRN (20:27)
[2019-03-14] MEDS ORDERED: ONDANSETRON *ODT* 4 MG TABLET SL PRN (20:27)
[2019-03-14] MEDS ORDERED: P-EPHED 60MG/TRIPROLIDI 2.5MG TABLET PO PRN (20:27)
[2019-03-14] MEDS ORDERED: METHOCARBAMOL 500 MG TABLET PO PRN (20:27)
[2019-03-14] MEDS ORDERED: MAG HYDROX/AL HYDROX/SIMETH 30 ML UNIT-DOSE CUP PO PRN (20:27)
[2019-03-14] MEDS ORDERED: MAGNESIUM CITRATE 300 ML BOTTLE PO PRN (20:27)
[2019-03-14] MEDS ORDERED: guaiFENesin 200 MG/10 ML 10 ML UNIT-DOSE CUPS PO PRN (20:27)
[2019-03-14] MEDS ORDERED: BISMUTH SUBSALICYLATE 524 MG/30 ML UD PO PRN (20:27)
[2019-03-14] MEDS ORDERED: MENTHOL/PHENOL 1 EACH UD MM PRN (20:27)
[2019-03-14] MEDS ORDERED: ACETAMINOPHEN 325 MG TABLET (FP) PO PRN ×2 (20:27)
[2019-03-14] MEDS: GABAPENTIN 300 MG CAPSULE (FP) PO SCH (21:37)
[2019-03-14] MEDS: THIAMINE HCL 100 MG TABLET (FP) PO SCH (21:37)
[2019-03-14] MEDS: diazePAM 5 MG TABLET PO SCH (21:37)
[2019-03-14] MEDS: NICOTINE POLACRILEX 4 MG GUM BUC PRN (21:40)
[2019-03-14] MEDS ORDERED: PATIENT'S OWN MEDICATION (NON-FORMULARY) (Gabapentin [Neurontin] 600 MG) PO SCH (22:00)
[2019-03-14] MEDS: NYSTATIN/TRIAMCINOLONE TOPICAL OINTMENT 15 GM TUBE TP SCH (22:45)
[2019-03-15] MEDS: GABAPENTIN 300 MG CAPSULE (FP) PO SCH ×3 (05:17→22:13)
[2019-03-15] MEDS: diazePAM 5 MG TABLET PO SCH ×3 (05:18→22:13)
[2019-03-15] MEDS ORDERED: METHADONE HCL 10 MG TABLET ONE (07:59)
[2019-03-15] MEDS ORDERED: METHADONE HCL 40 MG DISPERSABLE TABLET ONE (07:59)
[2019-03-15] MEDS ORDERED: METHADONE HCL 5 MG TABLET ONE (07:59)
[2019-03-15] MEDS ORDERED: METHADONE HCL 40 MG DISPERSABLE TABLET PO SCH (08:00)
[2019-03-15] MEDS: METHADONE 120 MG, METHADONE 30 MG, METHADONE 5 MG PO SCH (08:02)
[2019-03-15] MEDS: NICOTINE POLACRILEX 4 MG GUM BUC PRN ×5 (08:06→22:14)
--- NOTE | 2019-03-15 08:39 | CONSULT ---
[facility] Psychiatric Consult - Data Date of interview: 03/15/19 Admission source: [facility] Identifying data: Patient is a 28 year old single male, without children, unemployed, homeless, and is supported by welfare. This is one of multiple admissions for patient. Patient admitted to for cocaine and benzodiazepine dependence. Substance Abuse History: Smoking Cessation. Smoking history: Current every day smoker. Have you smoked in the past 12 months: Yes. Aproximately how many cigarettes per day: 20. Cigars Per Day: 0. Hx Chewing Tobacco Use: No. Initiated information on smoking cessation: Yes. 'Breaking Loose' booklet given : 03/14/19. - Substance & Tx. History. Hx Alcohol Use: No. Hx Substance Use: Yes. Substance Use Type: Cocaine, Heroin, Prescribed (METHADONE), Tranquilizers (XANAX). Hx Substance Use Treatment: Yes ([facility]). - Substances abused. Benzodiazepine (Klonopin). Substance route: Oral. Frequency: Daily. Amount used: 8 MG. Age of first use: 21. Date of last use: 03/13/19. Alprazolam (Xanax). Substance route: Oral. Frequency: Daily. Amount used: 6 MG. Age of first use: 21. Date of last use: 03/13/19. Cocaine. Substance route: Injection. Frequency: Daily. Amount used: $50. Age of first use: 16. Date of last use: 03/13/19. Heroin. Substance route : Injection. Frequency: 1-3 times last 30 days. Amount used: 1 BAG. Age of first use: 18. Date of last use: 03/14/19 Medical History: Anemi, Hypercholesterolemia, Seizures (withdrawal's), Hep C, ACL reconstruction left knee 2006, h/o chronic constipation Psychiatric History: Patient denies history of psychiatric hospitalizations and suicide attempt. Mr. Bowen reports recieving treatment when admitted to detox /rehab and residental facilities. Reports past treatment with lexapro while at [facility] correction program last year. Diagnosed with MDD and anxiety. Mr. Carter is not under the care of a psychiatric provider. At present, patient reports feeling lethargic and is experiencing difficulty sleeping. Physical/Sexual Abuse/Trauma History: denies. Mental Status Exam - Mental Status Exam Alert and Oriented to: Time, Place, Person Cognitive Function: Good Patient Appearance: Well Groomed Mood: Withdrawn Affect: Mood Congruent Patient Behavior: Sedated, Cooperative Speech Pattern: Appropriate Voice Loudness: Moderately Soft/Quiet Thought Process: Goal Oriented Thought Disorder: Not Present Hallucinations: Denies Suicidal Ideation: Denies Homicidal Ideation: Denies Insight/Judgement: Poor Sleep: Poorly Appetite: Fair Muscle strength/Tone: Normal Gait/Station: Normal Psychiatric Findings - Problem List ([place] 1, 2,3) (1) Substance-induced sleep disorder Status: Acute (2) Sedative, hypnotic or anxiolytic dependence with withdrawal, uncomplicated Status: Acute (3) Methadone maintenance therapy patient Status: Chronic (4) Nicotine dependence Status: Chronic Qualifiers: Nicotine product type: cigarettes Substance use status: uncomplicated Qualified Code(s): F17.210 - Nicotine dependence, cigarettes, uncomplicated (5) Substance induced mood disorder Status: Acute (6) Cocaine dependence Status: Acute (7) Opioid dependence Status: Acute Qualifiers: Substance use status: uncomplicated Qualified Code(s): F11.20 - Opioid dependence, uncomplicated - Initial Treatment Plan Initial Treatment Plan: Psychoeducation provided. Detoxification in progress. Will order Benadryl 50mg HS for insomnia. Benefits and side effects discussed. Verbal consent given.
[2019-03-15] MEDS: diazePAM 5 MG TABLET PO PRN ×2 (09:13→19:07)
[2019-03-15] MEDS: PRENATAL VITAMINS W/ FOLIC ACID TABLET (FP) PO SCH (10:00)
[2019-03-15] MEDS: NYSTATIN/TRIAMCINOLONE TOPICAL OINTMENT 15 GM TUBE TP SCH ×2 (10:00→22:15)
[2019-03-15] MEDS: NICOTINE 21 MG/24 HOURS TOPICAL PATCH TD SCH (10:01)
--- NOTE | 2019-03-15 10:14 | EKG ---
Test Reason : Blood Pressure : / mmHG Vent. Rate : 054 BPM Atrial Rate : 054 BPM P-R Int : 150 ms QRS Dur : 086 ms QT Int : 482 ms P-R-T Axes : 007 065 065 degrees QTc Int : 457 ms SINUS BRADYCARDIA OTHERWISE NORMAL ECG WHEN COMPARED WITH ECG OF 09-NOV-2017 09:04, NO SIGNIFICANT CHANGE WAS FOUND Confirmed by Liam Chaudhry MD ([id number]) on 03/15/2019 10:13:53 AM Referred By: JUAN TURCIOS Confirmed By:Liam Chaudhry MD
[2019-03-15 12:09] LABS: HEMATOCRIT 35.9 % (35.4-49); HEMOGLOBIN 12.2 GM/dL (11.7-16.9); MCH 29.7 pg (25.7-33.7); MCHC 33.9 g/dl (32.0-35.9); MEAN CELL VOLUME 87.5 fl (80-96); MEAN PLT VOLUME 8.4 fl (7.5-11.1); PLATELET COUNT 230 K/MM3 (134-434); RDW 13.5 % (11.9-15.9); WHITE BLOOD COUNT 4.7 K/mm3 (4.0-10.0)
[2019-03-15 12:12] LABS: ALBUMIN 3.4 g/dl (3.4-5.0); BILIRUBIN,TOTAL 0.3 mg/dL (0.2-1); BLOOD UREA NITROGEN 13.1 mg/dL (7-18); CALCIUM 8.6 mg/dL (8.5-10.1); CREATININE 0.8 mg/dL (0.55-1.3); POTASSIUM 4.1 mmol/L (3.5-5.1); TOT PROT 6.8 g/dl (6.4-8.2)
--- NOTE | 2019-03-15 13:23 | PN ---
S CIWA - CIWA Score Nausea/Vomitin-Mild Nausea/No Vomiting Muscle Tremors: 2 Anxiety: 2 Agitation: 2 Paroxysmal Sweats: 1-Minimal Palms Moist Orientation: 0-Oriented Tacttile Disturbances: 1-Very Mild Itch/Numbness Auditory Disturbances: 0-None Visual Disturbances: 0-None Headache: 2-Mild CIWA-Ar Total Score: 11 BHS Progress Note (SOAP) Subjective: alert,irrtiable,anxious,interrupted sleep,tremor,pain in the body Objective: 03/15/19 13:22 Vital Signs Temperature 97.1 F L 03/15/19 13:06 Pulse Rate 49 L 03/15/19 13:06 Respiratory Rate 16 03/15/19 13:06 Blood Pressure 93/52 L 03/15/19 13:06 O2 Sat by Pulse Oximetry (%) 03/15/19 13:22 Laboratory Last Values WBC 4.7 K/mm3 (4.0-10.0) 03/15/19 08:45 RBC 4.10 M/mm3 (4.00-5.60) 03/15/19 08:45 Hgb 12.2 GM/dL (11.7-16.9) 03/15/19 08:45 Hct 35.9 % (35.4-49) D 03/15/19 08:45 MCV 87.5 fl (80-96) 03/15/19 08:45 MCH 29.7 pg (25.7-33.7) 03/15/19 08:45 MCHC 33.9 g/dl (32.0-35.9) 03/15/19 08:45 RDW 13.5 % (11.9-15.9) 03/15/19 08:45 Plt Count 230 K/MM3 (134-434) 03/15/19 08:45 MPV 8.4 fl (7.5-11.1) 03/15/19 08:45 Sodium 141 mmol/L (136-145) 03/15/19 08:45 Potassium 4.1 mmol/L (3.5-5.1) 03/15/19 08:45 Chloride 104 mmol/L (98-107) 03/15/19 08:45 Carbon Dioxide 33 mmol/L (21-32) H 03/15/19 08:45 Anion Gap 5 MMOL/L (8-16) L 03/15/19 08:45 BUN 13.1 mg/dL (7-18) 03/15/19 08:45 Creatinine 0.8 mg/dL (0.55-1.3) 03/15/19 08:45 Est GFR (CKD-EPI)AfAm 140.90 03/15/19 08:45 Est GFR (CKD-EPI)NonAf 121.57 03/15/19 08:45 Random Glucose 90 mg/dL (74-106) 03/15/19 08:45 Calcium 8.6 mg/dL (8.5-10.1) 03/15/19 08:45 Total Bilirubin 0.3 mg/dL (0.2-1) 03/15/19 08:45 AST 21 U/L (15-37) 03/15/19 08:45 ALT 21 U/L (13-61) 03/15/19 08:45 Alkaline Phosphatase 66 U/L (45-117) 03/15/19 08:45 Total Protein 6.8 g/dl (6.4-8.2) 03/15/19 08:45 Albumin 3.4 g/dl (3.4-5.0) 03/15/19 08:45 03/15/19 13:22 labs pending Assessment: 03/15/19 13:22 withdrawal symptom Plan: continue detox valium regimen,continue methadone maintenance
[2019-03-15] MEDS ORDERED: diphenhydrAMINE HCL 50 MG CAPSULE PO PRN (22:00)
[2019-03-15] MEDS: MELATONIN 5 MG TABLETS PO PRN (22:13)
[2019-03-15] MEDS: THIAMINE HCL 100 MG TABLET (FP) PO SCH (22:13)
[2019-03-16] MEDS ORDERED: METHADONE HCL 10 MG TABLET ONE ×2 (05:07)
[2019-03-16] MEDS ORDERED: METHADONE HCL 5 MG TABLET ONE ×2 (05:08)
[2019-03-16] MEDS ORDERED: METHADONE HCL 40 MG DISPERSABLE TABLET ONE ×2 (05:08)
[2019-03-16] MEDS: GABAPENTIN 300 MG CAPSULE (FP) PO SCH ×3 (05:46→21:41)
[2019-03-16] MEDS: diazePAM 5 MG TABLET PO SCH ×2 (05:46→17:33)
[2019-03-16] MEDS: METHADONE 120 MG, METHADONE 30 MG, METHADONE 5 MG PO SCH (05:47)
[2019-03-16] MEDS: NICOTINE POLACRILEX 4 MG GUM BUC PRN ×4 (05:48→17:33)
[2019-03-16] MEDS: NICOTINE 21 MG/24 HOURS TOPICAL PATCH TD SCH (10:03)
[2019-03-16] MEDS: NYSTATIN/TRIAMCINOLONE TOPICAL OINTMENT 15 GM TUBE TP SCH ×2 (10:03→21:44)
[2019-03-16] MEDS: PRENATAL VITAMINS W/ FOLIC ACID TABLET (FP) PO SCH (10:04)
[2019-03-16] MEDS: diazePAM 5 MG TABLET PO PRN ×3 (10:04→21:40)
--- NOTE | 2019-03-16 13:19 | PN ---
S CIWA - CIWA Score Nausea/Vomitin Muscle Tremors: 2 Anxiety: 2 Agitation: 2 Paroxysmal Sweats: No Perspiration Orientation: 0-Oriented Tacttile Disturbances: 1-Very Mild Itch/Numbness Auditory Disturbances: 0-None Visual Disturbances: 0-None Headache: 1-Very Mild CIWA-Ar Total Score: 10 BHS Progress Note (SOAP) Subjective: alert,irritable,anxious,interrupted sleep Objective: 03/16/19 13:18 Vital Signs Temperature 97.5 F L 03/16/19 13:02 Pulse Rate 50 L 03/16/19 13:02 Respiratory Rate 18 03/16/19 13:02 Blood Pressure 108/64 03/16/19 13:02 O2 Sat by Pulse Oximetry (%) 03/16/19 13:19 Laboratory Last Values WBC 4.7 K/mm3 (4.0-10.0) 03/15/19 08:45 RBC 4.10 M/mm3 (4.00-5.60) 03/15/19 08:45 Hgb 12.2 GM/dL (11.7-16.9) 03/15/19 08:45 Hct 35.9 % (35.4-49) D 03/15/19 08:45 MCV 87.5 fl (80-96) 03/15/19 08:45 MCH 29.7 pg (25.7-33.7) 03/15/19 08:45 MCHC 33.9 g/dl (32.0-35.9) 03/15/19 08:45 RDW 13.5 % (11.9-15.9) 03/15/19 08:45 Plt Count 230 K/MM3 (134-434) 03/15/19 08:45 MPV 8.4 fl (7.5-11.1) 03/15/19 08:45 Sodium 141 mmol/L (136-145) 03/15/19 08:45 Potassium 4.1 mmol/L (3.5-5.1) 03/15/19 08:45 Chloride 104 mmol/L (98-107) 03/15/19 08:45 Carbon Dioxide 33 mmol/L (21-32) H 03/15/19 08:45 Anion Gap 5 MMOL/L (8-16) L 03/15/19 08:45 BUN 13.1 mg/dL (7-18) 03/15/19 08:45 Creatinine 0.8 mg/dL (0.55-1.3) 03/15/19 08:45 Est GFR (CKD-EPI)AfAm 140.90 03/15/19 08:45 Est GFR (CKD-EPI)NonAf 121.57 03/15/19 08:45 Random Glucose 90 mg/dL (74-106) 03/15/19 08:45 Calcium 8.6 mg/dL (8.5-10.1) 03/15/19 08:45 Total Bilirubin 0.3 mg/dL (0.2-1) 03/15/19 08:45 AST 21 U/L (15-37) 03/15/19 08:45 ALT 21 U/L (13-61) 03/15/19 08:45 Alkaline Phosphatase 66 U/L (45-117) 03/15/19 08:45 Total Protein 6.8 g/dl (6.4-8.2) 03/15/19 08:45 Albumin 3.4 g/dl (3.4-5.0) 03/15/19 08:45 RPR Titer Nonreactive (NONREACTIVE) 03/15/19 08:45 Assessment: 03/16/19 13:19 withdrawal symptom Plan: continue detox valium regimen
[2019-03-16 14:52] LABS: URINE APPEARANCE CLEAR; URINE BILIRUBIN NEGATIVE (NEGATIVE); URINE COLOR YELLOW; URINE GLUCOSE (UA) NEGATIVE (NEGATIVE); URINE KETONE NEGATIVE (NEGATIVE); URINE LEUK ESTERASE NEGATIVE (NEGATIVE); URINE NITRITE NEGATIVE (NEGATIVE); URINE PROTEIN NEGATIVE (NEGATIVE); URINE UROBILINOGEN 0.2 mg/dL (0.2-1.0)
[2019-03-16] MEDS: THIAMINE HCL 100 MG TABLET (FP) PO SCH (21:40)
[2019-03-16] MEDS: MELATONIN 5 MG TABLETS PO PRN (21:42)
[2019-03-17] MEDS ORDERED: METHADONE HCL 10 MG TABLET ONE (04:48)
[2019-03-17] MEDS ORDERED: METHADONE HCL 5 MG TABLET ONE (04:48)
[2019-03-17] MEDS ORDERED: METHADONE HCL 40 MG DISPERSABLE TABLET ONE (04:48)
[2019-03-17] MEDS: METHADONE 120 MG, METHADONE 30 MG, METHADONE 5 MG PO SCH (05:23)
[2019-03-17] MEDS: GABAPENTIN 300 MG CAPSULE (FP) PO SCH (05:24)
[2019-03-17] MEDS ORDERED: diazePAM 5 MG TABLET PO ONE (06:00)
[2019-03-17 09:11] VITALS: BP 104/67; PULSE 58; TEMP 97.6
[2019-03-17] MEDS: diazePAM 5 MG TABLET PO PRN (09:58)
[2019-03-17] MEDS: NICOTINE POLACRILEX 4 MG GUM BUC PRN (09:58)
[2019-03-17] MEDS: NYSTATIN/TRIAMCINOLONE TOPICAL OINTMENT 15 GM TUBE TP SCH (09:58)
[2019-03-17] MEDS: PRENATAL VITAMINS W/ FOLIC ACID TABLET (FP) PO SCH (09:58)
[2019-03-17] MEDS: NICOTINE 21 MG/24 HOURS TOPICAL PATCH TD SCH (10:12)
--- NOTE | 2019-03-17 17:41 | DS ---
[facility] Detox Discharge Summary Admission Date: 03/14/19 Discharge Date: 03/17/19 - History Present History: Cocaine Dependence, Opioid Dependence, Sedative Dependence, MMTP Additional Comments: NO BEDS ARE AVAILABLE FOR REHAB ADMISSION FOR PATIENT TODAY, HE WILL RETURN TO HIS SENIOR CARE FOR TONIGHT, THEN HE INTENDS TO APPLY TO [facility] FOR ADMISSION TOMORROW. PATIENT WAS DISCHARGED FROM DETOX UNIT IN STABLE MEDICAL CONDITION. Pertinent Past History: History Of Anemia, History of Hypercholesterolemia, History Of Seizures (Due To withdrawal), History Of Blackouts, Depression, History Of Chronic Constipation, Hep C (Treated), Tinea Corporis, Nicotine Dependence. - Physical Exam Results Vital Signs: Vital Signs Temperature 97.6 F 03/17/19 09:10 Pulse Rate 58 L 03/17/19 09:10 Respiratory Rate 18 03/17/19 09:10 Blood Pressure 104/67 03/17/19 09:10 O2 Sat by Pulse Oximetry (%) Pertinent Admission Physical Exam Findings: WITHDRAWAL SYMPTOMS. Laboratory Tests 03/15/19 03/15/19 03/15/19 08:45 08:45 08:45 WBC 4.7 RBC 4.10 Hgb 12.2 Hct 35.9 D MCV 87.5 MCH 29.7 MCHC 33.9 RDW 13.5 Plt Count 230 MPV 8.4 Sodium 141 Potassium 4.1 Chloride 104 Carbon Dioxide 33 H Anion Gap 5 L BUN 13.1 Creatinine 0.8 Est GFR (CKD-EPI)AfAm 140.90 Est GFR (CKD-EPI)NonAf 121.57 Random Glucose 90 Calcium 8.6 Total Bilirubin 0.3 AST 21 ALT 21 Alkaline Phosphatase 66 Total Protein 6.8 Albumin 3.4 Urine Color Urine Appearance Urine pH Ur Specific [place] Urine Protein Urine Glucose (UA) Urine Ketones Urine Blood Urine Nitrite Urine Bilirubin Urine Urobilinogen Ur Leukocyte Esterase RPR Titer Nonreactive 03/16/19 08:15 WBC RBC Hgb Hct MCV MCH MCHC RDW Plt Count MPV Sodium Potassium Chloride Carbon Dioxide Anion Gap BUN Creatinine Est GFR (CKD-EPI)AfAm Est GFR (CKD-EPI)NonAf Random Glucose Calcium Total Bilirubin AST ALT Alkaline Phosphatase Total Protein Albumin Urine Color Yellow Urine Appearance Clear Urine pH 6.0 Ur Specific [place] 1.013 Urine Protein Negative Urine Glucose (UA) Negative Urine Ketones Negative Urine Blood Negative Urine Nitrite Negative Urine Bilirubin Negative Urine Urobilinogen 0.2 Ur Leukocyte Esterase Negative RPR Titer LABS NOTED. - Treatment Hospital Course: Detox Protocol Followed, Detoxed Safely, Responded well, Discharged Condition Good Patient has Accepted a Rehab Referral to: PT. WILL APPLY FOR ADMISION [facility] TOMORROW. - Medication Discharge Medications: Ambulatory Orders Gabapentin [Neurontin] 600 mg PO TID 11/08/17 - Diagnosis (1) Cocaine abuse Status: Acute (2) Homeless Status: Acute (3) Sedative, hypnotic or anxiolytic dependence Status: Acute (4) Substance induced mood disorder Status: Acute (5) Tinea corporis Status: Acute (6) Methadone maintenance therapy patient Status: Chronic (7) Nicotine dependence Status: Chronic Qualifiers: Nicotine product type: cigarettes Substance use status: uncomplicated Qualified Code(s): F17.210 - Nicotine dependence, cigarettes, uncomplicated (8) Depressed affect Status: Suspected (9) Opioid dependence Status: Acute Qualifiers: Substance use status: uncomplicated Qualified Code(s): F11.20 - Opioid dependence, uncomplicated (10) Substance-induced sleep disorder Status: Acute - AMA Did Patient Leave Against Medical Advice: No BHS CIWA - CIWA Score Nausea/Vomitin-No Nausea/No Vomiting Muscle Tremors: None Anxiety: 3 Agitation: 2 Paroxysmal Sweats: 1-Minimal Palms Moist Orientation: 0-Oriented Tacttile Disturbances: 0-None Auditory Disturbances: 0-None Visual Disturbances: 0-None Headache: 0-None Present CIWA-Ar Total Score: 6
== END 2019-03-17 12:34 | disposition home or self-care (01) | DRG 773 ==
LOC: YASAS 16:51 → Y3N 20:27
PROVIDERS: ADMIT Surgery; ATTEND Surgery
PROC: HZ2ZZZZ Detoxification Services for Substance Abuse Treatment (ICD-10-PCS; principal; 2019-03-14)
DX: F13.230 Sedative, hypnotic or anxiolytic dependence with withdrawal, uncomplicated (principal); F11.20 Opioid dependence, uncomplicated; F14.10 Cocaine abuse, uncomplicated; F17.210 Nicotine dependence, cigarettes, uncomplicated; F19.24 Other psychoactive substance dependence with psychoactive substance-induced mood disorder; F19.282 Other psychoactive substance dependence with psychoactive substance-induced sleep disorder; F32.9 Major depressive disorder, single episode, unspecified; B35.4 Tinea corporis; Z86.19 Personal history of other infectious and parasitic diseases; Z88.2 Allergy status to sulfonamides; Z86.69 Personal history of other diseases of the nervous system and sense organs; Z59.0 Homelessness
CPT/HCPCS: 36415; 80053; 81003; 85027; 86593; 93005; 93010

== ENCOUNTER 2020-05-07 12:54 | Inpatient (IN) | payer OTHER ==
[2020-05-07 13:56] VITALS: BMI 32.2
[2020-05-07] MEDS ORDERED: MAG HYDROX/AL HYDROX/SIMETH 30 ML UNIT-DOSE CUP PO PRN (14:41)
[2020-05-07] MEDS ORDERED: IBUPROFEN 400 MG TABLET (FP) PO PRN (14:41)
[2020-05-07] MEDS ORDERED: ACETAMINOPHEN 325 MG TABLET (FP) PO PRN ×2 (14:41)
[2020-05-07] MEDS ORDERED: BISMUTH SUBSALICYLATE 262 MG/15 ML BTL PO PRN (14:41)
[2020-05-07] MEDS ORDERED: ONDANSETRON *ODT* 4 MG TABLET SL PRN (14:41)
[2020-05-07] MEDS ORDERED: MENTHOL/PHENOL 1 EACH UD MM PRN (14:41)
[2020-05-07] MEDS ORDERED: MAGNESIUM HYDROX 2400MG/30ML ORAL SUSPENSION 30 ML CUP PO PRN (14:41)
[2020-05-07] MEDS ORDERED: MAGNESIUM CITRATE 300 ML BOTTLE PO PRN (14:41)
[2020-05-07] MEDS: METHOCARBAMOL 500 MG TABLET PO PRN (15:23)
[2020-05-07] MEDS: LORazepam 1 MG TABLET PO PRN (15:23)
[2020-05-07] MEDS: PRENATAL VITAMINS W/ FOLIC ACID TABLET (FP) PO SCH (15:27)
[2020-05-07] MEDS: NICOTINE 21 MG/24 HOURS TOPICAL PATCH TD SCH (15:28)
[2020-05-07] MEDS: NICOTINE POLACRILEX 2 MG GUM BUC PRN ×3 (15:28→22:05)
[2020-05-07] MEDS: LORazepam 2 MG TABLET PO SCH ×2 (16:59→22:03)
[2020-05-07] MEDS: hydrOXYzine PAMOATE 25 MG CAPSULE (FP) PO SCH ×2 (16:59→22:03)
[2020-05-07 17:00] LABS: HEMATOCRIT 39.3 % (35.4-49); HEMOGLOBIN 13.5 GM/dL (11.7-16.9); MCH 29.2 pg (25.7-33.7); MCHC 34.4 g/dl (32.0-35.9); MEAN CELL VOLUME 84.9 fl (80-96); MEAN PLT VOLUME 8.3 fl (7.5-11.1); PLATELET COUNT 353 K/MM3 (134-434); POTASSIUM 4.2 mmol/L (3.5-5.1); RBC 4.63 M/mm3 (4.00-5.60); RDW 13.8 % (11.9-15.9); WHITE BLOOD COUNT 6.6 K/mm3 (4.0-10.0)
[2020-05-07 17:04] LABS: CALCIUM 9.5 mg/dL (8.5-10.1)
[2020-05-07 17:05] LABS: ALBUMIN 4.2 g/dl (3.4-5.0); BLOOD UREA NITROGEN 15.1 mg/dL (7-18)
[2020-05-07 17:08] LABS: CREATININE 1.1 mg/dL (0.55-1.3)
[2020-05-07 17:09] LABS: BILIRUBIN,TOTAL 0.7 mg/dL (0.2-1); TOT PROT 8.9 g/dl (6.4-8.2)
[2020-05-07] MEDS ORDERED: MELATONIN 5 MG TABLETS PO SCH (22:00)
[2020-05-07] MEDS: THIAMINE HCL 100 MG TABLET (FP) PO SCH (22:03)
[2020-05-08] MEDS: LORazepam 1 MG TABLET PO PRN ×2 (02:35→13:41)
[2020-05-08] MEDS: hydrOXYzine PAMOATE 25 MG CAPSULE (FP) PO SCH ×2 (05:42→09:14)
[2020-05-08] MEDS: LORazepam 2 MG TABLET PO SCH ×4 (05:42→22:07)
[2020-05-08] MEDS: METHADONE HCL 40 MG DISPERSABLE TABLET PO SCH (09:14)
[2020-05-08] MEDS: NICOTINE POLACRILEX 2 MG GUM BUC PRN ×5 (09:15→22:09)
[2020-05-08] MEDS: PRENATAL VITAMINS W/ FOLIC ACID TABLET (FP) PO SCH (09:15)
[2020-05-08] MEDS: NICOTINE 21 MG/24 HOURS TOPICAL PATCH TD SCH (09:15)
[2020-05-08] MEDS: THIAMINE HCL 100 MG TABLET (FP) PO SCH (22:07)
[2020-05-08] MEDS: SUVOREXANT 10 MG TABLET PO PRN (22:08)
[2020-05-09] MEDS: LORazepam 1 MG TABLET PO SCH ×4 (05:34→22:06)
[2020-05-09] MEDS: NICOTINE POLACRILEX 2 MG GUM BUC PRN ×7 (05:34→22:07)
[2020-05-09] MEDS: NICOTINE 21 MG/24 HOURS TOPICAL PATCH TD SCH (09:43)
[2020-05-09] MEDS: PRENATAL VITAMINS W/ FOLIC ACID TABLET (FP) PO SCH (09:44)
[2020-05-09] MEDS: METHADONE HCL 40 MG DISPERSABLE TABLET PO SCH (09:44)
[2020-05-09] MEDS: METHOCARBAMOL 500 MG TABLET PO PRN (10:06)
[2020-05-09] MEDS: hydrOXYzine PAMOATE 50 MG CAPSULE (FP) PO PRN ×2 (12:30→17:00)
[2020-05-09] MEDS: LORazepam 1 MG TABLET PO PRN ×2 (13:03→19:00)
[2020-05-09] MEDS: SUVOREXANT 10 MG TABLET PO PRN (22:05)
[2020-05-09] MEDS: THIAMINE HCL 100 MG TABLET (FP) PO SCH (22:06)
[2020-05-10] MEDS: LORazepam 0.5 MG TABLET PO PRN ×3 (03:29→19:48)
[2020-05-10] MEDS: METHADONE HCL 40 MG DISPERSABLE TABLET PO SCH (05:55)
[2020-05-10] MEDS: LORazepam 0.5 MG TABLET PO SCH ×4 (05:55→22:16)
[2020-05-10] MEDS: NICOTINE POLACRILEX 2 MG GUM BUC PRN ×6 (05:56→22:16)
[2020-05-10] MEDS: PRENATAL VITAMINS W/ FOLIC ACID TABLET (FP) PO SCH (10:09)
[2020-05-10] MEDS: METHOCARBAMOL 500 MG TABLET PO PRN ×2 (10:09→17:12)
[2020-05-10] MEDS: NICOTINE 21 MG/24 HOURS TOPICAL PATCH TD SCH (10:10)
[2020-05-10] MEDS: SUVOREXANT 10 MG TABLET PO PRN (22:15)
[2020-05-10] MEDS: THIAMINE HCL 100 MG TABLET (FP) PO SCH (22:16)
[2020-05-11] MEDS ORDERED: LORazepam 0.5 MG TABLET PO ONE (05:00)
[2020-05-11] MEDS: METHADONE HCL 40 MG DISPERSABLE TABLET PO SCH (06:21)
[2020-05-11] MEDS: NICOTINE POLACRILEX 2 MG GUM BUC PRN ×2 (06:22→09:23)
[2020-05-11] MEDS: NICOTINE 21 MG/24 HOURS TOPICAL PATCH TD SCH (10:56)
[2020-05-11] MEDS: PRENATAL VITAMINS W/ FOLIC ACID TABLET (FP) PO SCH (10:56)
[2020-05-11] MEDS: METHOCARBAMOL 500 MG TABLET PO PRN (10:57)
[2020-05-11 13:25] VITALS: BP 132/79; PULSE 81; TEMP 98
== END 2020-05-11 13:04 | disposition other institution (70) | DRG 773 ==
LOC: YASAS 12:54 → Y6N 14:18
PROVIDERS: ADMIT Allergy & Immunology; ATTEND Allergy & Immunology
PROC: HZ2ZZZZ Detoxification Services for Substance Abuse Treatment (ICD-10-PCS; principal; 2020-05-07)
DX: F11.23 Opioid dependence with withdrawal (principal); F13.20 Sedative, hypnotic or anxiolytic dependence, uncomplicated; F14.20 Cocaine dependence, uncomplicated; F17.210 Nicotine dependence, cigarettes, uncomplicated; F19.280 Other psychoactive substance dependence with psychoactive substance-induced anxiety disorder; F19.282 Other psychoactive substance dependence with psychoactive substance-induced sleep disorder; F19.24 Other psychoactive substance dependence with psychoactive substance-induced mood disorder; E78.5 Hyperlipidemia, unspecified; R45.89 Other symptoms and signs involving emotional state; Z86.19 Personal history of other infectious and parasitic diseases; Z86.2 Personal history of diseases of the blood and blood-forming organs and certain disorders involving the immune mechanism; Z88.2 Allergy status to sulfonamides; Z59.0 Homelessness; Z56.0 Unemployment, unspecified
CPT/HCPCS: 36415; 80053; 85027; 86780; C9803; Q0162; U0003

== ENCOUNTER 2020-05-11 13:30 | Inpatient (IN) | payer OTHER ==
[2020-05-11] MEDS ORDERED: MENTHOL/PHENOL 1 EACH UD MM PRN (13:46)
[2020-05-11] MEDS ORDERED: MAG HYDROX/AL HYDROX/SIMETH 30 ML UNIT-DOSE CUP PO PRN (13:46)
[2020-05-11] MEDS ORDERED: P-EPHED 60MG/TRIPROLIDI 2.5MG TABLET PO PRN (13:46)
[2020-05-11] MEDS ORDERED: hydrOXYzine PAMOATE 25 MG CAPSULE (FP) PO PRN (13:46)
[2020-05-11] MEDS ORDERED: guaiFENesin 200 MG/10 ML 10 ML UNIT-DOSE CUPS PO PRN (13:46)
[2020-05-11] MEDS ORDERED: LOPERAMIDE HCL 2 MG CAPSULE PO PRN (13:46)
[2020-05-11] MEDS: NICOTINE POLACRILEX 2 MG GUM BUC PRN ×2 (14:16→21:21)
[2020-05-11] MEDS: MELATONIN 5 MG TABLETS PO SCH (21:18)
[2020-05-11] MEDS: THIAMINE HCL 100 MG TABLET (FP) PO SCH (21:18)
[2020-05-11] MEDS: IBUPROFEN 400 MG TABLET (FP) PO PRN (21:20)
[2020-05-11] MEDS: hydrOXYzine PAMOATE 50 MG CAPSULE (FP) PO PRN (21:20)
[2020-05-12] MEDS: NICOTINE POLACRILEX 2 MG GUM BUC PRN ×5 (06:33→21:35)
[2020-05-12] MEDS: METHADONE HCL 40 MG DISPERSABLE TABLET PO SCH (06:33)
[2020-05-12] MEDS: PRENATAL VITAMINS W/ FOLIC ACID TABLET (FP) PO SCH (10:18)
[2020-05-12] MEDS: NICOTINE 7 MG/24 HOURS TOPICAL PATCH TD SCH (10:18)
[2020-05-12] MEDS: MELATONIN 5 MG TABLETS PO SCH (21:32)
[2020-05-12] MEDS: THIAMINE HCL 100 MG TABLET (FP) PO SCH (21:33)
[2020-05-12] MEDS: SUVOREXANT 10 MG TABLET PO PRN (21:34)
[2020-05-12] MEDS: hydrOXYzine PAMOATE 50 MG CAPSULE (FP) PO PRN (21:34)
[2020-05-13] MEDS: NICOTINE POLACRILEX 2 MG GUM BUC PRN ×6 (05:57→22:02)
[2020-05-13] MEDS: METHADONE HCL 40 MG DISPERSABLE TABLET PO SCH (05:57)
[2020-05-13] MEDS: ACETAMINOPHEN 325 MG TABLET (FP) PO PRN ×2 (06:56→21:22)
[2020-05-13] MEDS: PRENATAL VITAMINS W/ FOLIC ACID TABLET (FP) PO SCH (09:50)
[2020-05-13] MEDS: NICOTINE 7 MG/24 HOURS TOPICAL PATCH TD SCH (09:50)
[2020-05-13] MEDS: hydrOXYzine PAMOATE 50 MG CAPSULE (FP) PO PRN ×2 (09:50→21:21)
[2020-05-13] MEDS: THIAMINE HCL 100 MG TABLET (FP) PO SCH (21:21)
[2020-05-13] MEDS: SUVOREXANT 10 MG TABLET PO PRN (21:22)
[2020-05-13] MEDS: MELATONIN 5 MG TABLETS PO SCH (21:22)
[2020-05-14] MEDS: METHADONE HCL 40 MG DISPERSABLE TABLET PO SCH (06:17)
[2020-05-14] MEDS: ACETAMINOPHEN 325 MG TABLET (FP) PO PRN (07:28)
[2020-05-14] MEDS: NICOTINE POLACRILEX 2 MG GUM BUC PRN ×4 (08:48→21:27)
[2020-05-14] MEDS: NICOTINE 7 MG/24 HOURS TOPICAL PATCH TD SCH (09:45)
[2020-05-14] MEDS: PRENATAL VITAMINS W/ FOLIC ACID TABLET (FP) PO SCH (09:45)
[2020-05-14] MEDS: MAGNESIUM HYDROX 2400MG/30ML ORAL SUSPENSION 30 ML CUP PO PRN (09:47)
[2020-05-14] MEDS: hydrOXYzine PAMOATE 50 MG CAPSULE (FP) PO PRN (21:26)
[2020-05-14] MEDS: MELATONIN 5 MG TABLETS PO SCH (21:26)
[2020-05-14] MEDS: SUVOREXANT 10 MG TABLET PO PRN (21:26)
[2020-05-14] MEDS: THIAMINE HCL 100 MG TABLET (FP) PO SCH (21:26)
[2020-05-14] MEDS: IBUPROFEN 400 MG TABLET (FP) PO PRN (21:26)
[2020-05-15] MEDS: NICOTINE POLACRILEX 2 MG GUM BUC PRN ×3 (06:10→14:17)
[2020-05-15] MEDS: METHADONE HCL 40 MG DISPERSABLE TABLET PO SCH (06:10)
[2020-05-15] MEDS: PRENATAL VITAMINS W/ FOLIC ACID TABLET (FP) PO SCH (09:46)
[2020-05-15] MEDS: NICOTINE 7 MG/24 HOURS TOPICAL PATCH TD SCH (09:47)
[2020-05-15] MEDS: ACETAMINOPHEN 325 MG TABLET (FP) PO PRN (09:48)
[2020-05-15] MEDS: MAGNESIUM HYDROX 2400MG/30ML ORAL SUSPENSION 30 ML CUP PO PRN (09:49)
[2020-05-15] MEDS: DOCUSATE SODIUM 100 MG CAPSULE (FP) PO SCH ×2 (14:16→21:23)
[2020-05-15] MEDS: MELATONIN 5 MG TABLETS PO SCH (21:22)
[2020-05-15] MEDS: THIAMINE HCL 100 MG TABLET (FP) PO SCH (21:22)
[2020-05-15] MEDS: hydrOXYzine PAMOATE 50 MG CAPSULE (FP) PO PRN (21:22)
[2020-05-15] MEDS: IBUPROFEN 400 MG TABLET (FP) PO PRN (21:22)
[2020-05-15] MEDS: SUVOREXANT 10 MG TABLET PO PRN (21:23)
[2020-05-16] MEDS: DOCUSATE SODIUM 100 MG CAPSULE (FP) PO SCH ×3 (06:12→21:26)
[2020-05-16] MEDS: METHADONE HCL 40 MG DISPERSABLE TABLET PO SCH (06:12)
[2020-05-16] MEDS: NICOTINE POLACRILEX 2 MG GUM BUC PRN ×5 (06:14→21:27)
[2020-05-16] MEDS: NICOTINE 7 MG/24 HOURS TOPICAL PATCH TD SCH (09:47)
[2020-05-16] MEDS: PRENATAL VITAMINS W/ FOLIC ACID TABLET (FP) PO SCH (09:47)
[2020-05-16] MEDS: IBUPROFEN 400 MG TABLET (FP) PO PRN ×2 (09:49→21:25)
[2020-05-16] MEDS: MAGNESIUM HYDROX 2400MG/30ML ORAL SUSPENSION 30 ML CUP PO PRN (09:49)
[2020-05-16] MEDS: MAGNESIUM CITRATE 300 ML BOTTLE PO PRN (14:31)
[2020-05-16] MEDS: SUVOREXANT 10 MG TABLET PO PRN (21:26)
[2020-05-16] MEDS: MELATONIN 5 MG TABLETS PO SCH (21:26)
[2020-05-16] MEDS: THIAMINE HCL 100 MG TABLET (FP) PO SCH (21:26)
[2020-05-16] MEDS: hydrOXYzine PAMOATE 50 MG CAPSULE (FP) PO PRN (21:26)
[2020-05-17] MEDS: METHADONE HCL 40 MG DISPERSABLE TABLET PO SCH (06:08)
[2020-05-17] MEDS: DOCUSATE SODIUM 100 MG CAPSULE (FP) PO SCH ×3 (06:08→21:46)
[2020-05-17] MEDS: NICOTINE POLACRILEX 2 MG GUM BUC PRN ×4 (06:08→21:48)
[2020-05-17] MEDS: IBUPROFEN 400 MG TABLET (FP) PO PRN ×2 (07:13→20:02)
[2020-05-17] MEDS: PRENATAL VITAMINS W/ FOLIC ACID TABLET (FP) PO SCH (09:56)
[2020-05-17] MEDS: NICOTINE 7 MG/24 HOURS TOPICAL PATCH TD SCH (09:56)
[2020-05-17] MEDS: ACETAMINOPHEN 325 MG TABLET (FP) PO PRN ×2 (12:23→22:29)
[2020-05-17] MEDS: hydrOXYzine PAMOATE 50 MG CAPSULE (FP) PO PRN (21:46)
[2020-05-17] MEDS: MELATONIN 5 MG TABLETS PO SCH (21:46)
[2020-05-17] MEDS: THIAMINE HCL 100 MG TABLET (FP) PO SCH (21:46)
[2020-05-17] MEDS: SUVOREXANT 10 MG TABLET PO PRN (21:47)
[2020-05-18] MEDS: METHADONE HCL 40 MG DISPERSABLE TABLET PO SCH (06:12)
[2020-05-18] MEDS: IBUPROFEN 400 MG TABLET (FP) PO PRN ×3 (06:12→21:29)
[2020-05-18] MEDS: DOCUSATE SODIUM 100 MG CAPSULE (FP) PO SCH ×3 (06:12→21:29)
[2020-05-18] MEDS: NICOTINE POLACRILEX 2 MG GUM BUC PRN ×6 (06:13→21:30)
[2020-05-18] MEDS: PRENATAL VITAMINS W/ FOLIC ACID TABLET (FP) PO SCH (10:03)
[2020-05-18] MEDS: NICOTINE 7 MG/24 HOURS TOPICAL PATCH TD SCH (10:03)
[2020-05-18] MEDS: FLUOCINONIDE 0.05% CREAM (60 GM TUBE) TP SCH ×2 (14:26→21:44)
[2020-05-18] MEDS: METHOCARBAMOL 500 MG TABLET PO PRN ×2 (14:27→21:29)
[2020-05-18] MEDS: LIDOCAINE 5% TOPICAL PATCH TP SCH (14:27)
[2020-05-18] MEDS ORDERED: SELENIUM SULFIDE 2.5% LOTION 4 OZ. TP SCH (14:45)
[2020-05-18] MEDS: MINERAL OIL/PETROLAT/WATER TOPICAL CREAM 113 GM JAR TP SCH (15:59)
[2020-05-18] MEDS: SUVOREXANT 10 MG TABLET PO PRN (21:29)
[2020-05-18] MEDS: MELATONIN 5 MG TABLETS PO SCH (21:29)
[2020-05-18] MEDS: hydrOXYzine PAMOATE 50 MG CAPSULE (FP) PO PRN (21:29)
[2020-05-18] MEDS: THIAMINE HCL 100 MG TABLET (FP) PO SCH (21:29)
[2020-05-18] MEDS: LIDOCAINE PATCH REMOVAL MC SCH (21:30)
[2020-05-19] MEDS: METHOCARBAMOL 500 MG TABLET PO PRN ×3 (06:05→21:28)
[2020-05-19] MEDS: DOCUSATE SODIUM 100 MG CAPSULE (FP) PO SCH ×3 (06:05→21:29)
[2020-05-19] MEDS: METHADONE HCL 40 MG DISPERSABLE TABLET PO SCH (06:06)
[2020-05-19] MEDS: IBUPROFEN 400 MG TABLET (FP) PO PRN ×2 (07:12→17:33)
[2020-05-19] MEDS: PRENATAL VITAMINS W/ FOLIC ACID TABLET (FP) PO SCH (09:41)
[2020-05-19] MEDS: LIDOCAINE 5% TOPICAL PATCH TP SCH (09:41)
[2020-05-19] MEDS: NICOTINE 7 MG/24 HOURS TOPICAL PATCH TD SCH (09:42)
[2020-05-19] MEDS: MINERAL OIL/PETROLAT/WATER TOPICAL CREAM 113 GM JAR TP SCH (09:43)
[2020-05-19] MEDS: NICOTINE POLACRILEX 2 MG GUM BUC PRN ×3 (09:43→17:34)
[2020-05-19] MEDS: FLUOCINONIDE 0.05% CREAM (60 GM TUBE) TP SCH ×2 (09:52→21:29)
[2020-05-19] MEDS: MAGNESIUM HYDROX 2400MG/30ML ORAL SUSPENSION 30 ML CUP PO PRN (12:02)
[2020-05-19] MEDS: MELATONIN 5 MG TABLETS PO SCH (21:27)
[2020-05-19] MEDS: THIAMINE HCL 100 MG TABLET (FP) PO SCH (21:27)
[2020-05-19] MEDS: SUVOREXANT 10 MG TABLET PO PRN (21:28)
[2020-05-19] MEDS: hydrOXYzine PAMOATE 50 MG CAPSULE (FP) PO PRN (21:28)
[2020-05-19] MEDS: LIDOCAINE PATCH REMOVAL MC SCH (21:28)
[2020-05-20] MEDS: METHOCARBAMOL 500 MG TABLET PO PRN ×3 (05:58→21:39)
[2020-05-20] MEDS: METHADONE HCL 40 MG DISPERSABLE TABLET PO SCH (05:59)
[2020-05-20] MEDS: DOCUSATE SODIUM 100 MG CAPSULE (FP) PO SCH ×3 (06:02→21:39)
[2020-05-20] MEDS: NICOTINE POLACRILEX 2 MG GUM BUC PRN ×5 (06:02→21:40)
[2020-05-20] MEDS: ACETAMINOPHEN 325 MG TABLET (FP) PO PRN (09:45)
[2020-05-20] MEDS: MINERAL OIL/PETROLAT/WATER TOPICAL CREAM 113 GM JAR TP SCH (09:46)
[2020-05-20] MEDS: LIDOCAINE 5% TOPICAL PATCH TP SCH (09:47)
[2020-05-20] MEDS: FLUOCINONIDE 0.05% CREAM (60 GM TUBE) TP SCH ×2 (09:47→21:52)
[2020-05-20] MEDS: PRENATAL VITAMINS W/ FOLIC ACID TABLET (FP) PO SCH (09:47)
[2020-05-20] MEDS: NICOTINE 7 MG/24 HOURS TOPICAL PATCH TD SCH (09:47)
[2020-05-20] MEDS: MAGNESIUM CITRATE 300 ML BOTTLE PO PRN (16:40)
[2020-05-20] MEDS: hydrOXYzine PAMOATE 50 MG CAPSULE (FP) PO PRN (21:39)
[2020-05-20] MEDS: MELATONIN 5 MG TABLETS PO SCH (21:39)
[2020-05-20] MEDS: THIAMINE HCL 100 MG TABLET (FP) PO SCH (21:39)
[2020-05-20] MEDS: SUVOREXANT 10 MG TABLET PO PRN (21:41)
[2020-05-20] MEDS: LIDOCAINE PATCH REMOVAL MC SCH (21:52)
[2020-05-21] MEDS: DOCUSATE SODIUM 100 MG CAPSULE (FP) PO SCH ×3 (06:22→21:36)
[2020-05-21] MEDS: METHADONE HCL 40 MG DISPERSABLE TABLET PO SCH (06:22)
[2020-05-21] MEDS: METHOCARBAMOL 500 MG TABLET PO PRN ×3 (06:23→21:37)
[2020-05-21] MEDS: NICOTINE POLACRILEX 2 MG GUM BUC PRN ×4 (06:23→21:37)
[2020-05-21] MEDS: PRENATAL VITAMINS W/ FOLIC ACID TABLET (FP) PO SCH (10:00)
[2020-05-21] MEDS: LIDOCAINE 5% TOPICAL PATCH TP SCH (10:00)
[2020-05-21] MEDS: FLUOCINONIDE 0.05% CREAM (60 GM TUBE) TP SCH ×2 (10:01→21:37)
[2020-05-21] MEDS: hydrOXYzine PAMOATE 50 MG CAPSULE (FP) PO PRN ×2 (10:01→21:37)
[2020-05-21] MEDS: MINERAL OIL/PETROLAT/WATER TOPICAL CREAM 113 GM JAR TP SCH (10:01)
[2020-05-21] MEDS: NICOTINE 7 MG/24 HOURS TOPICAL PATCH TD SCH (10:01)
[2020-05-21] MEDS: IBUPROFEN 400 MG TABLET (FP) PO PRN ×3 (10:02→22:42)
[2020-05-21] MEDS: ACETAMINOPHEN 325 MG TABLET (FP) PO PRN (14:20)
[2020-05-21] MEDS: LIDOCAINE PATCH REMOVAL MC SCH (21:37)
[2020-05-21] MEDS: THIAMINE HCL 100 MG TABLET (FP) PO SCH (21:37)
[2020-05-21] MEDS: SUVOREXANT 10 MG TABLET PO PRN (21:37)
[2020-05-21] MEDS: MELATONIN 5 MG TABLETS PO SCH (21:37)
[2020-05-22] MEDS: IBUPROFEN 400 MG TABLET (FP) PO PRN ×2 (06:10→13:49)
[2020-05-22] MEDS: METHADONE HCL 40 MG DISPERSABLE TABLET PO SCH (06:10)
[2020-05-22] MEDS: METHOCARBAMOL 500 MG TABLET PO PRN ×2 (06:10→21:46)
[2020-05-22] MEDS: DOCUSATE SODIUM 100 MG CAPSULE (FP) PO SCH ×3 (07:06→21:47)
[2020-05-22] MEDS: LIDOCAINE 5% TOPICAL PATCH TP SCH (09:59)
[2020-05-22] MEDS: PRENATAL VITAMINS W/ FOLIC ACID TABLET (FP) PO SCH (09:59)
[2020-05-22] MEDS: ACETAMINOPHEN 325 MG TABLET (FP) PO PRN ×2 (09:59→21:47)
[2020-05-22] MEDS: NICOTINE 7 MG/24 HOURS TOPICAL PATCH TD SCH (10:00)
[2020-05-22] MEDS: MINERAL OIL/PETROLAT/WATER TOPICAL CREAM 113 GM JAR TP SCH (10:01)
[2020-05-22] MEDS: FLUOCINONIDE 0.05% CREAM (60 GM TUBE) TP SCH ×2 (10:01→21:48)
[2020-05-22] MEDS: MAGNESIUM HYDROX 2400MG/30ML ORAL SUSPENSION 30 ML CUP PO PRN (15:03)
[2020-05-22] MEDS: hydrOXYzine PAMOATE 50 MG CAPSULE (FP) PO PRN (21:46)
[2020-05-22] MEDS: THIAMINE HCL 100 MG TABLET (FP) PO SCH (21:46)
[2020-05-22] MEDS: MELATONIN 5 MG TABLETS PO SCH (21:46)
[2020-05-22] MEDS: LIDOCAINE PATCH REMOVAL MC SCH (21:47)
[2020-05-22] MEDS: SUVOREXANT 10 MG TABLET PO PRN (21:47)
[2020-05-22] MEDS: NICOTINE POLACRILEX 2 MG GUM BUC PRN (21:49)
[2020-05-23] MEDS: IBUPROFEN 400 MG TABLET (FP) PO PRN ×2 (06:12→14:22)
[2020-05-23] MEDS: DOCUSATE SODIUM 100 MG CAPSULE (FP) PO SCH ×3 (06:13→21:24)
[2020-05-23] MEDS: METHADONE HCL 40 MG DISPERSABLE TABLET PO SCH (06:13)
[2020-05-23] MEDS: NICOTINE POLACRILEX 2 MG GUM BUC PRN ×5 (06:13→17:16)
[2020-05-23] MEDS: METHOCARBAMOL 500 MG TABLET PO PRN ×2 (07:46→21:22)
[2020-05-23] MEDS: PRENATAL VITAMINS W/ FOLIC ACID TABLET (FP) PO SCH (10:29)
[2020-05-23] MEDS: NICOTINE 7 MG/24 HOURS TOPICAL PATCH TD SCH (10:30)
[2020-05-23] MEDS: ACETAMINOPHEN 325 MG TABLET (FP) PO PRN ×2 (10:30→21:22)
[2020-05-23] MEDS: FLUOCINONIDE 0.05% CREAM (60 GM TUBE) TP SCH ×2 (10:30→21:23)
[2020-05-23] MEDS: MINERAL OIL/PETROLAT/WATER TOPICAL CREAM 113 GM JAR TP SCH (10:30)
[2020-05-23] MEDS: LIDOCAINE 5% TOPICAL PATCH TP SCH (10:30)
[2020-05-23] MEDS: MAGNESIUM HYDROX 2400MG/30ML ORAL SUSPENSION 30 ML CUP PO PRN (15:56)
[2020-05-23] MEDS: THIAMINE HCL 100 MG TABLET (FP) PO SCH (21:22)
[2020-05-23] MEDS: hydrOXYzine PAMOATE 50 MG CAPSULE (FP) PO PRN (21:22)
[2020-05-23] MEDS: SUVOREXANT 10 MG TABLET PO PRN (21:22)
[2020-05-23] MEDS: MELATONIN 5 MG TABLETS PO SCH (21:22)
[2020-05-23] MEDS: LIDOCAINE PATCH REMOVAL MC SCH (21:23)
[2020-05-24] MEDS: METHOCARBAMOL 500 MG TABLET PO PRN ×2 (06:23→21:59)
[2020-05-24] MEDS: DOCUSATE SODIUM 100 MG CAPSULE (FP) PO SCH ×3 (06:23→22:00)
[2020-05-24] MEDS: IBUPROFEN 400 MG TABLET (FP) PO PRN (06:23)
[2020-05-24] MEDS: NICOTINE POLACRILEX 2 MG GUM BUC PRN ×5 (06:24→22:01)
[2020-05-24] MEDS: METHADONE HCL 40 MG DISPERSABLE TABLET PO SCH (06:25)
[2020-05-24] MEDS: PRENATAL VITAMINS W/ FOLIC ACID TABLET (FP) PO SCH (10:01)
[2020-05-24] MEDS: ACETAMINOPHEN 325 MG TABLET (FP) PO PRN ×2 (10:02→21:59)
[2020-05-24] MEDS: LIDOCAINE 5% TOPICAL PATCH TP SCH (10:03)
[2020-05-24] MEDS: FLUOCINONIDE 0.05% CREAM (60 GM TUBE) TP SCH ×2 (10:04→21:58)
[2020-05-24] MEDS: NICOTINE 7 MG/24 HOURS TOPICAL PATCH TD SCH (10:04)
[2020-05-24] MEDS: MINERAL OIL/PETROLAT/WATER TOPICAL CREAM 113 GM JAR TP SCH (10:04)
[2020-05-24] MEDS ORDERED: MAGNESIUM CITRATE 300 ML BOTTLE PO PRN ×2 (11:03→11:45)
[2020-05-24] MEDS: hydrOXYzine PAMOATE 50 MG CAPSULE (FP) PO PRN (21:59)
[2020-05-24] MEDS: MELATONIN 5 MG TABLETS PO SCH (21:59)
[2020-05-24] MEDS: LIDOCAINE PATCH REMOVAL MC SCH (21:59)
[2020-05-24] MEDS: THIAMINE HCL 100 MG TABLET (FP) PO SCH (21:59)
[2020-05-24] MEDS: SUVOREXANT 10 MG TABLET PO PRN (22:01)
[2020-05-25] MEDS: IBUPROFEN 400 MG TABLET (FP) PO PRN ×3 (06:26→21:22)
[2020-05-25] MEDS: DOCUSATE SODIUM 100 MG CAPSULE (FP) PO SCH ×3 (06:27→21:21)
[2020-05-25] MEDS: METHADONE HCL 40 MG DISPERSABLE TABLET PO SCH (10:14)
[2020-05-25] MEDS: PRENATAL VITAMINS W/ FOLIC ACID TABLET (FP) PO SCH (10:16)
[2020-05-25] MEDS: FLUOCINONIDE 0.05% CREAM (60 GM TUBE) TP SCH ×2 (10:16→21:21)
[2020-05-25] MEDS: MINERAL OIL/PETROLAT/WATER TOPICAL CREAM 113 GM JAR TP SCH (10:16)
[2020-05-25] MEDS: NICOTINE 7 MG/24 HOURS TOPICAL PATCH TD SCH (10:17)
[2020-05-25] MEDS: LIDOCAINE 5% TOPICAL PATCH TP SCH (10:17)
[2020-05-25] MEDS: ACETAMINOPHEN 325 MG TABLET (FP) PO PRN ×2 (10:18→17:18)
[2020-05-25] MEDS: METHOCARBAMOL 500 MG TABLET PO PRN ×2 (10:18→19:31)
[2020-05-25] MEDS: NICOTINE POLACRILEX 2 MG GUM BUC PRN ×3 (10:19→21:24)
[2020-05-25] MEDS: THIAMINE HCL 100 MG TABLET (FP) PO SCH (21:20)
[2020-05-25] MEDS: MELATONIN 5 MG TABLETS PO SCH (21:20)
[2020-05-25] MEDS: LIDOCAINE PATCH REMOVAL MC SCH (21:21)
[2020-05-25] MEDS: SUVOREXANT 10 MG TABLET PO PRN (21:22)
[2020-05-25] MEDS: hydrOXYzine PAMOATE 50 MG CAPSULE (FP) PO PRN (21:23)
[2020-05-26] MEDS: IBUPROFEN 400 MG TABLET (FP) PO PRN ×3 (06:34→21:32)
[2020-05-26] MEDS: DOCUSATE SODIUM 100 MG CAPSULE (FP) PO SCH ×3 (06:35→21:31)
[2020-05-26] MEDS: NICOTINE POLACRILEX 2 MG GUM BUC PRN ×5 (06:36→21:33)
[2020-05-26] MEDS: LIDOCAINE 5% TOPICAL PATCH TP SCH (09:24)
[2020-05-26] MEDS: PRENATAL VITAMINS W/ FOLIC ACID TABLET (FP) PO SCH (09:24)
[2020-05-26] MEDS: METHADONE HCL 40 MG DISPERSABLE TABLET PO SCH (09:25)
[2020-05-26] MEDS: METHOCARBAMOL 500 MG TABLET PO PRN ×2 (09:25→21:32)
[2020-05-26] MEDS: MINERAL OIL/PETROLAT/WATER TOPICAL CREAM 113 GM JAR TP SCH (09:25)
[2020-05-26] MEDS: FLUOCINONIDE 0.05% CREAM (60 GM TUBE) TP SCH ×2 (09:26→21:31)
[2020-05-26] MEDS: NICOTINE 7 MG/24 HOURS TOPICAL PATCH TD SCH (09:26)
[2020-05-26] MEDS: ACETAMINOPHEN 325 MG TABLET (FP) PO PRN (09:28)
[2020-05-26] MEDS: hydrOXYzine PAMOATE 50 MG CAPSULE (FP) PO PRN ×2 (13:45→21:31)
[2020-05-26] MEDS: MAGNESIUM HYDROX 2400MG/30ML ORAL SUSPENSION 30 ML CUP PO PRN (17:31)
[2020-05-26] MEDS: THIAMINE HCL 100 MG TABLET (FP) PO SCH (21:31)
[2020-05-26] MEDS: LIDOCAINE PATCH REMOVAL MC SCH (21:31)
[2020-05-26] MEDS: MELATONIN 5 MG TABLETS PO SCH (21:31)
[2020-05-26] MEDS: SUVOREXANT 10 MG TABLET PO PRN (21:32)
[2020-05-27] MEDS: IBUPROFEN 400 MG TABLET (FP) PO PRN ×3 (07:42→21:26)
[2020-05-27] MEDS: DOCUSATE SODIUM 100 MG CAPSULE (FP) PO SCH ×3 (07:43→21:25)
[2020-05-27] MEDS: METHADONE HCL 40 MG DISPERSABLE TABLET PO SCH (09:57)
[2020-05-27] MEDS: PRENATAL VITAMINS W/ FOLIC ACID TABLET (FP) PO SCH (09:57)
[2020-05-27] MEDS: NICOTINE 7 MG/24 HOURS TOPICAL PATCH TD SCH (09:57)
[2020-05-27] MEDS: LIDOCAINE 5% TOPICAL PATCH TP SCH (09:58)
[2020-05-27] MEDS: METHOCARBAMOL 500 MG TABLET PO PRN ×2 (09:58→21:25)
[2020-05-27] MEDS: FLUOCINONIDE 0.05% CREAM (60 GM TUBE) TP SCH ×2 (10:00→21:25)
[2020-05-27] MEDS: MINERAL OIL/PETROLAT/WATER TOPICAL CREAM 113 GM JAR TP SCH (10:00)
[2020-05-27] MEDS: NICOTINE POLACRILEX 2 MG GUM BUC PRN ×2 (10:01→13:28)
[2020-05-27] MEDS: ACETAMINOPHEN 325 MG TABLET (FP) PO PRN (17:12)
[2020-05-27] MEDS: LIDOCAINE PATCH REMOVAL MC SCH (21:25)
[2020-05-27] MEDS: MELATONIN 5 MG TABLETS PO SCH (21:25)
[2020-05-27] MEDS: THIAMINE HCL 100 MG TABLET (FP) PO SCH (21:25)
[2020-05-27] MEDS: SUVOREXANT 10 MG TABLET PO PRN (21:26)
[2020-05-28] MEDS: DOCUSATE SODIUM 100 MG CAPSULE (FP) PO SCH ×3 (07:04→21:27)
[2020-05-28] MEDS: LIDOCAINE 5% TOPICAL PATCH TP SCH (10:15)
[2020-05-28] MEDS: PRENATAL VITAMINS W/ FOLIC ACID TABLET (FP) PO SCH (10:15)
[2020-05-28] MEDS: METHADONE HCL 40 MG DISPERSABLE TABLET PO SCH (10:15)
[2020-05-28] MEDS: METHOCARBAMOL 500 MG TABLET PO PRN ×2 (10:17→21:26)
[2020-05-28] MEDS: IBUPROFEN 400 MG TABLET (FP) PO PRN ×2 (10:17→21:26)
[2020-05-28] MEDS: NICOTINE POLACRILEX 2 MG GUM BUC PRN ×4 (10:21→21:27)
[2020-05-28] MEDS: NICOTINE 7 MG/24 HOURS TOPICAL PATCH TD SCH (10:21)
[2020-05-28] MEDS: MINERAL OIL/PETROLAT/WATER TOPICAL CREAM 113 GM JAR TP SCH ×2 (10:21→12:15)
[2020-05-28] MEDS: FLUOCINONIDE 0.05% CREAM (60 GM TUBE) TP SCH ×2 (10:21→21:27)
[2020-05-28] MEDS: ACETAMINOPHEN 325 MG TABLET (FP) PO PRN (14:09)
[2020-05-28] MEDS: hydrOXYzine PAMOATE 50 MG CAPSULE (FP) PO PRN (21:26)
[2020-05-28] MEDS: THIAMINE HCL 100 MG TABLET (FP) PO SCH (21:26)
[2020-05-28] MEDS: MELATONIN 5 MG TABLETS PO SCH (21:26)
[2020-05-28] MEDS: LIDOCAINE PATCH REMOVAL MC SCH (21:27)
[2020-05-28] MEDS ORDERED: SUVOREXANT 10 MG TABLET PO ONE (23:00)
[2020-05-29] MEDS ORDERED: METHADONE HCL 40 MG DISPERSABLE TABLET PO SCH (06:00)
[2020-05-29] MEDS: DOCUSATE SODIUM 100 MG CAPSULE (FP) PO SCH (06:09)
[2020-05-29] MEDS: IBUPROFEN 400 MG TABLET (FP) PO PRN (06:09)
[2020-05-29] MEDS: METHOCARBAMOL 500 MG TABLET PO PRN (06:09)
[2020-05-29 07:03] VITALS: BP 141/86; PULSE 102; TEMP 97.7
== END 2020-05-29 07:45 | disposition home or self-care (01) | DRG 772 ==
LOC: YASAS 13:30 → Y5N 13:31
PROVIDERS: ADMIT Allergy & Immunology; ATTEND Allergy & Immunology
PROC: HZ40ZZZ Group Counseling for Substance Abuse Treatment, Cognitive (ICD-10-PCS; principal; 2020-05-11)
DX: F13.20 Sedative, hypnotic or anxiolytic dependence, uncomplicated (principal); F11.20 Opioid dependence, uncomplicated; F17.210 Nicotine dependence, cigarettes, uncomplicated; K59.01 Slow transit constipation; R21 Rash and other nonspecific skin eruption; Z88.2 Allergy status to sulfonamides; Z59.0 Homelessness
CPT/HCPCS: C9803; U0003

== ENCOUNTER 2020-07-01 13:29 | Inpatient (IN) | payer OTHER ==
[2020-07-01 15:05] VITALS: BMI 32.5
[2020-07-01] MEDS ORDERED: MAG HYDROX/AL HYDROX/SIMETH 30 ML UNIT-DOSE CUP PO PRN (21:37)
[2020-07-01] MEDS ORDERED: ONDANSETRON *ODT* 4 MG TABLET SL PRN (21:37)
[2020-07-01] MEDS ORDERED: MENTHOL/PHENOL 1 EACH UD MM PRN (21:37)
[2020-07-01] MEDS ORDERED: MAGNESIUM CITRATE 300 ML BOTTLE PO PRN (21:37)
[2020-07-01] MEDS ORDERED: MAGNESIUM HYDROX 2400MG/30ML ORAL SUSPENSION 30 ML CUP PO PRN (21:37)
[2020-07-01] MEDS ORDERED: ACETAMINOPHEN 325 MG TABLET (FP) PO PRN ×2 (21:37)
[2020-07-01] MEDS ORDERED: BISMUTH SUBSALICYLATE 524 MG/30 ML UD PO PRN (21:37)
[2020-07-01] MEDS: MELATONIN 5 MG TABLETS PO SCH (22:55)
[2020-07-01] MEDS: diazePAM 5 MG TABLET PO SCH (22:57)
[2020-07-01] MEDS: THIAMINE HCL 100 MG TABLET (FP) PO SCH (22:58)
[2020-07-01] MEDS: NICOTINE POLACRILEX 2 MG GUM BUC PRN (22:59)
[2020-07-01] MEDS: IBUPROFEN 400 MG TABLET (FP) PO PRN (23:01)
[2020-07-02] MEDS: diazePAM 5 MG TABLET PO PRN ×2 (01:58→07:29)
[2020-07-02] MEDS: diazePAM 5 MG TABLET PO SCH (05:35)
[2020-07-02] MEDS: IBUPROFEN 400 MG TABLET (FP) PO PRN ×2 (05:38→22:20)
[2020-07-02] MEDS: PRENATAL VITAMINS W/ FOLIC ACID TABLET (FP) PO SCH (10:08)
[2020-07-02] MEDS: NICOTINE 14 MG/24 HOURS TOPICAL PATCH TD SCH (10:09)
[2020-07-02] MEDS: LORazepam 2 MG TABLET PO SCH ×3 (10:11→22:24)
[2020-07-02] MEDS: NICOTINE POLACRILEX 2 MG GUM BUC PRN ×2 (10:14→14:10)
[2020-07-02] MEDS ORDERED: METHADONE HCL 40 MG DISPERSABLE TABLET PO ONE (11:00)
[2020-07-02] MEDS: FLUOCINONIDE 0.05% CREAM (60 GM TUBE) TP SCH ×4 (11:57→22:25)
[2020-07-02 12:04] LABS: POTASSIUM 3.5 mmol/L (3.5-5.1)
[2020-07-02 12:10] LABS: CALCIUM 8.5 mg/dL (8.5-10.1)
[2020-07-02 12:11] LABS: BLOOD UREA NITROGEN 10.7 mg/dL (7-18)
[2020-07-02 12:14] LABS: CREATININE 0.8 mg/dL (0.55-1.3)
[2020-07-02 12:15] LABS: BILIRUBIN,TOTAL 0.6 mg/dL (0.2-1)
[2020-07-02 12:16] LABS: TOT PROT 6.1 g/dl (6.4-8.2)
[2020-07-02 12:23] LABS: HEMATOCRIT 30.5 % (35.4-49); HEMOGLOBIN 10.7 GM/dL (11.7-16.9); MCH 29.7 pg (25.7-33.7); MCHC 35.1 g/dl (32.0-35.9); MEAN CELL VOLUME 84.6 fl (80-96); PLATELET COUNT 203 K/MM3 (134-434); RBC 3.61 M/mm3 (4.00-5.60); RDW 13.9 % (11.9-15.9); WHITE BLOOD COUNT 2.9 K/mm3 (4.0-10.0)
[2020-07-02] MEDS: LORazepam 1 MG TABLET PO PRN ×2 (13:53→20:06)
[2020-07-02] MEDS: METHOCARBAMOL 500 MG TABLET PO PRN (22:20)
[2020-07-02] MEDS: THIAMINE HCL 100 MG TABLET (FP) PO SCH (22:20)
[2020-07-02] MEDS: GABAPENTIN 100 MG CAPSULE PO SCH (22:24)
[2020-07-02] MEDS: MELATONIN 5 MG TABLETS PO SCH (22:25)
[2020-07-03] MEDS: LORazepam 1 MG TABLET PO PRN ×2 (01:08→12:28)
[2020-07-03] MEDS: NICOTINE POLACRILEX 2 MG GUM BUC PRN ×2 (01:12→17:21)
[2020-07-03] MEDS: LORazepam 2 MG TABLET PO SCH ×4 (05:33→22:13)
[2020-07-03] MEDS: GABAPENTIN 100 MG CAPSULE PO SCH ×3 (05:33→22:12)
[2020-07-03] MEDS ORDERED: diazePAM 5 MG TABLET PO SCH (06:00)
[2020-07-03] MEDS: METHADONE HCL 40 MG DISPERSABLE TABLET PO SCH (09:11)
[2020-07-03] MEDS: SERTRALINE HCL 50 MG TABLET (FP) PO SCH (10:09)
[2020-07-03] MEDS: NICOTINE 14 MG/24 HOURS TOPICAL PATCH TD SCH (10:09)
[2020-07-03] MEDS: PRENATAL VITAMINS W/ FOLIC ACID TABLET (FP) PO SCH (10:09)
[2020-07-03] MEDS: FLUOCINONIDE 0.05% CREAM (60 GM TUBE) TP SCH ×4 (10:10→22:13)
[2020-07-03] MEDS: THIAMINE HCL 100 MG TABLET (FP) PO SCH (22:12)
[2020-07-03] MEDS: MELATONIN 5 MG TABLETS PO SCH (22:12)
[2020-07-03] MEDS: METHOCARBAMOL 500 MG TABLET PO PRN (22:12)
[2020-07-04] MEDS: GABAPENTIN 100 MG CAPSULE PO SCH (05:54)
[2020-07-04] MEDS: LORazepam 1 MG TABLET PO SCH ×2 (05:54→10:31)
[2020-07-04] MEDS: METHADONE HCL 40 MG DISPERSABLE TABLET PO SCH (05:54)
[2020-07-04] MEDS: IBUPROFEN 400 MG TABLET (FP) PO PRN (05:55)
[2020-07-04] MEDS ORDERED: diazePAM 5 MG TABLET PO SCH (06:00)
[2020-07-04] MEDS: NICOTINE POLACRILEX 2 MG GUM BUC PRN (07:07)
[2020-07-04] MEDS: LORazepam 1 MG TABLET PO PRN (08:51)
[2020-07-04] MEDS ORDERED: LORazepam 0.5 MG TABLET ONE (09:27)
[2020-07-04 09:28] VITALS: BP 110/66; PULSE 63; TEMP 98.2
[2020-07-04] MEDS: FLUOCINONIDE 0.05% CREAM (60 GM TUBE) TP SCH (09:49)
[2020-07-04] MEDS: PRENATAL VITAMINS W/ FOLIC ACID TABLET (FP) PO SCH (09:49)
[2020-07-04] MEDS: NICOTINE 14 MG/24 HOURS TOPICAL PATCH TD SCH (09:49)
[2020-07-04] MEDS: SERTRALINE HCL 50 MG TABLET (FP) PO SCH (09:50)
[2020-07-05] MEDS ORDERED: LORazepam 0.5 MG TABLET PO PRN
[2020-07-05] MEDS ORDERED: LORazepam 0.5 MG TABLET PO SCH (05:00)
[2020-07-05] MEDS ORDERED: diazePAM 5 MG TABLET PO ONE (06:00)
[2020-07-06] MEDS ORDERED: LORazepam 0.5 MG TABLET PO ONE (05:00)
== END 2020-07-04 10:05 | disposition left against medical advice (07) | DRG 770 ==
LOC: YASAS 13:29 → Y3N 21:41
PROVIDERS: ADMIT Allergy & Immunology; ATTEND Allergy & Immunology
PROC: HZ2ZZZZ Detoxification Services for Substance Abuse Treatment (ICD-10-PCS; principal; 2020-07-01)
DX: F10.230 Alcohol dependence with withdrawal, uncomplicated (principal); F13.230 Sedative, hypnotic or anxiolytic dependence with withdrawal, uncomplicated; F11.20 Opioid dependence, uncomplicated; F14.20 Cocaine dependence, uncomplicated; F17.210 Nicotine dependence, cigarettes, uncomplicated; F41.9 Anxiety disorder, unspecified; F32.9 Major depressive disorder, single episode, unspecified; D64.9 Anemia, unspecified; B18.2 Chronic viral hepatitis C; E78.5 Hyperlipidemia, unspecified; L85.3 Xerosis cutis; Z86.69 Personal history of other diseases of the nervous system and sense organs; Z88.2 Allergy status to sulfonamides; Z56.0 Unemployment, unspecified; Z59.0 Homelessness; Z91.19 Patient's noncompliance with other medical treatment and regimen
CPT/HCPCS: 36415; 80053; 85027; 86780; 93005; 93010; C9803; U0003

== ENCOUNTER 2020-12-27 12:48 | Inpatient (IN) | payer OTHER ==
[2020-12-27 14:06] VITALS: BMI 32.2
[2020-12-27] MEDS ORDERED: MAG HYDROX/AL HYDROX/SIMETH 30 ML UNIT-DOSE CUP PO PRN (14:45)
[2020-12-27] MEDS ORDERED: BISMUTH SUBSALICYLATE 524 MG/30 ML PO PRN (14:45)
[2020-12-27] MEDS ORDERED: MAGNESIUM HYDROX 2400MG/30ML ORAL SUSPENSION 30 ML CUP PO PRN (14:45)
[2020-12-27] MEDS ORDERED: NICOTINE POLACRILEX 2 MG GUM BUC PRN (14:45)
[2020-12-27] MEDS ORDERED: MENTHOL/PHENOL 1 EACH UD MM PRN (14:45)
[2020-12-27] MEDS ORDERED: ONDANSETRON *ODT* 4 MG TABLET SL PRN (14:45)
[2020-12-27] MEDS ORDERED: MAGNESIUM CITRATE 300 ML BOTTLE PO PRN (14:45)
[2020-12-27] MEDS ORDERED: METHOCARBAMOL 500 MG TABLET PO PRN (14:45)
[2020-12-27] MEDS ORDERED: NALOXONE (NARCAN) HCL 4 MG/0.1 ML SPRAY NS SCH (14:45)
[2020-12-27] MEDS ORDERED: ACETAMINOPHEN 325 MG TABLET (FP) PO PRN ×2 (14:45)
[2020-12-27] MEDS ORDERED: LORazepam 2 MG TABLET ONE (20:17)
[2020-12-27] MEDS ORDERED: hydrOXYzine PAMOATE 25 MG CAPSULE (FP) PO ONE ×2 (20:18→23:03)
[2020-12-27] MEDS: LORazepam 2 MG TABLET PO SCH (20:24)
[2020-12-27] MEDS: hydrOXYzine PAMOATE 25 MG CAPSULE (FP) PO SCH ×2 (20:24→23:06)
[2020-12-27] MEDS: NICOTINE 14 MG/24 HOURS TOPICAL PATCH TD SCH (22:44)
[2020-12-27] MEDS: THIAMINE HCL 100 MG TABLET (FP) PO SCH (23:06)
[2020-12-27] MEDS: MELATONIN 5 MG TABLETS PO SCH (23:06)
[2020-12-28] MEDS ORDERED: LORazepam 2 MG TABLET ONE ×2 (00:10→05:56)
[2020-12-28] MEDS: LORazepam 2 MG TABLET PO SCH ×5 (00:11→22:11)
[2020-12-28] MEDS ORDERED: hydrOXYzine PAMOATE 25 MG CAPSULE (FP) PO ONE (05:56)
[2020-12-28] MEDS: hydrOXYzine PAMOATE 25 MG CAPSULE (FP) PO SCH ×5 (06:26→22:11)
[2020-12-28 10:08] LABS: HEMATOCRIT 34.4 % (35.4-49); HEMOGLOBIN 11.9 GM/dL (11.7-16.9); MCH 29.4 pg (25.7-33.7); MCHC 34.4 g/dl (32.0-35.9); MEAN CELL VOLUME 85.5 fl (80-96); MEAN PLT VOLUME 7.7 fl (7.5-11.1); PLATELET COUNT 253 10^3/uL (134-434); RBC 4.03 M/mm3 (4.00-5.60); RDW 13.3 % (11.9-15.9); WHITE BLOOD COUNT 5.5 K/mm3 (4.0-10.0)
[2020-12-28 10:10] LABS: CALCIUM 8.2 mg/dL (8.5-10.1)
[2020-12-28 10:11] LABS: BLOOD UREA NITROGEN 7.1 mg/dL (7-18)
[2020-12-28 10:13] LABS: CREATININE 0.8 mg/dL (0.55-1.3)
[2020-12-28 10:15] LABS: BILIRUBIN,TOTAL 0.9 mg/dL (0.2-1); TOT PROT 6.9 g/dl (6.4-8.2)
[2020-12-28] MEDS: methaDONE HCL 40 MG DISPERSABLE TABLET PO SCH (10:59)
[2020-12-28] MEDS: PRENATAL VITAMINS W/ FOLIC ACID TABLET (FP) PO SCH (11:00)
[2020-12-28] MEDS: NICOTINE 14 MG/24 HOURS TOPICAL PATCH TD SCH (11:01)
[2020-12-28] MEDS: LORazepam 1 MG TABLET PO PRN (15:24)
[2020-12-28] MEDS: THIAMINE HCL 100 MG TABLET (FP) PO SCH (22:11)
[2020-12-28] MEDS: MELATONIN 5 MG TABLETS PO SCH (22:12)
[2020-12-28] MEDS: IBUPROFEN 400 MG TABLET (FP) PO PRN (22:44)
[2020-12-29] MEDS: methaDONE HCL 40 MG DISPERSABLE TABLET PO SCH (05:57)
[2020-12-29] MEDS: LORazepam 1 MG TABLET PO SCH ×4 (05:58→23:09)
[2020-12-29] MEDS: hydrOXYzine PAMOATE 25 MG CAPSULE (FP) PO SCH ×5 (05:59→23:09)
[2020-12-29] MEDS: NICOTINE 14 MG/24 HOURS TOPICAL PATCH TD SCH (10:17)
[2020-12-29] MEDS: PRENATAL VITAMINS W/ FOLIC ACID TABLET (FP) PO SCH (10:17)
[2020-12-29] MEDS: LORazepam 1 MG TABLET PO PRN (12:24)
[2020-12-29] MEDS: MELATONIN 5 MG TABLETS PO SCH (23:09)
[2020-12-29] MEDS: THIAMINE HCL 100 MG TABLET (FP) PO SCH (23:10)
[2020-12-30] MEDS ORDERED: LORazepam 0.5 MG TABLET PO PRN
[2020-12-30] MEDS: methaDONE HCL 40 MG DISPERSABLE TABLET PO SCH (05:41)
[2020-12-30] MEDS: LORazepam 0.5 MG TABLET PO SCH ×4 (05:41→22:14)
[2020-12-30] MEDS: hydrOXYzine PAMOATE 25 MG CAPSULE (FP) PO SCH ×5 (05:41→22:15)
[2020-12-30] MEDS: PRENATAL VITAMINS W/ FOLIC ACID TABLET (FP) PO SCH (10:18)
[2020-12-30] MEDS: IBUPROFEN 400 MG TABLET (FP) PO PRN (10:20)
[2020-12-30] MEDS: NICOTINE 14 MG/24 HOURS TOPICAL PATCH TD SCH (10:21)
[2020-12-30] MEDS: THIAMINE HCL 100 MG TABLET (FP) PO SCH (22:14)
[2020-12-30] MEDS: MELATONIN 5 MG TABLETS PO SCH (22:15)
[2020-12-31] MEDS ORDERED: LORazepam 0.5 MG TABLET PO ONE (05:00)
[2020-12-31] MEDS: methaDONE HCL 40 MG DISPERSABLE TABLET PO SCH (06:02)
[2020-12-31] MEDS: hydrOXYzine PAMOATE 25 MG CAPSULE (FP) PO SCH ×2 (06:03→10:31)
[2020-12-31 09:15] VITALS: BP 129/77; PULSE 69; TEMP 98.1
[2020-12-31] MEDS: NICOTINE 14 MG/24 HOURS TOPICAL PATCH TD SCH (10:31)
[2020-12-31] MEDS: PRENATAL VITAMINS W/ FOLIC ACID TABLET (FP) PO SCH (10:31)
== END 2020-12-31 11:14 | disposition other institution (70) | DRG 773 ==
LOC: YASAS 12:48 → Y6N 12-28 09:33
PROVIDERS: ADMIT Allergy & Immunology; ATTEND Allergy & Immunology
PROC: HZ2ZZZZ Detoxification Services for Substance Abuse Treatment (ICD-10-PCS; principal; 2020-12-28)
DX: F10.230 Alcohol dependence with withdrawal, uncomplicated (principal); F13.230 Sedative, hypnotic or anxiolytic dependence with withdrawal, uncomplicated; F11.20 Opioid dependence, uncomplicated; F14.20 Cocaine dependence, uncomplicated; F17.210 Nicotine dependence, cigarettes, uncomplicated; F41.9 Anxiety disorder, unspecified; F32.9 Major depressive disorder, single episode, unspecified; B18.2 Chronic viral hepatitis C; E66.9 Obesity, unspecified; Z68.32 Body mass index [BMI] 32.0-32.9, adult; Z87.19 Personal history of other diseases of the digestive system
CPT/HCPCS: 36415; 80053; 85027; 86780; C9803; Q0162; U0003; U0005

== ENCOUNTER 2020-12-31 11:14 | Inpatient (IN) | payer OTHER ==
[2020-12-31] MEDS ORDERED: P-EPHED 60MG/TRIPROLIDI 2.5MG TABLET PO PRN (11:50)
[2020-12-31] MEDS ORDERED: hydrOXYzine PAMOATE 25 MG CAPSULE (FP) PO PRN (11:50)
[2020-12-31] MEDS ORDERED: LOPERAMIDE HCL 2 MG CAPSULE PO PRN (11:50)
[2020-12-31] MEDS ORDERED: guaiFENesin 200 MG/10 ML 10 ML UNIT-DOSE CUPS PO PRN (11:50)
[2020-12-31] MEDS ORDERED: ACETAMINOPHEN 325 MG TABLET (FP) PO PRN (11:50)
[2020-12-31] MEDS ORDERED: MAG HYDROX/AL HYDROX/SIMETH 30 ML UNIT-DOSE CUP PO PRN (11:50)
[2020-12-31] MEDS ORDERED: MENTHOL/PHENOL 1 EACH UD MM PRN (11:50)
[2020-12-31] MEDS: MELATONIN 5 MG TABLETS PO SCH (21:42)
[2020-12-31] MEDS: THIAMINE HCL 100 MG TABLET (FP) PO SCH (21:42)
[2020-12-31] MEDS: IBUPROFEN 400 MG TABLET (FP) PO PRN (21:43)
[2021-01-01] MEDS: methaDONE HCL 40 MG DISPERSABLE TABLET PO SCH (06:18)
[2021-01-01] MEDS: NICOTINE POLACRILEX 2 MG GUM BUC PRN ×3 (07:46→21:07)
[2021-01-01] MEDS: PRENATAL VITAMINS W/ FOLIC ACID TABLET (FP) PO SCH (10:05)
[2021-01-01] MEDS: SERTRALINE HCL 50 MG TABLET (FP) PO SCH (10:07)
[2021-01-01] MEDS: IBUPROFEN 400 MG TABLET (FP) PO PRN (10:07)
[2021-01-01] MEDS: GABAPENTIN 100 MG CAPSULE PO SCH ×2 (13:27→21:07)
[2021-01-01] MEDS: MELATONIN 5 MG TABLETS PO SCH (21:07)
[2021-01-01] MEDS: THIAMINE HCL 100 MG TABLET (FP) PO SCH (21:07)
[2021-01-02] MEDS: NICOTINE POLACRILEX 2 MG GUM BUC PRN ×4 (06:12→21:38)
[2021-01-02] MEDS: GABAPENTIN 100 MG CAPSULE PO SCH ×3 (06:12→21:37)
[2021-01-02] MEDS: methaDONE HCL 40 MG DISPERSABLE TABLET PO SCH (06:12)
[2021-01-02] MEDS: PRENATAL VITAMINS W/ FOLIC ACID TABLET (FP) PO SCH (10:19)
[2021-01-02] MEDS: SERTRALINE HCL 50 MG TABLET (FP) PO SCH (10:20)
[2021-01-02] MEDS: IBUPROFEN 400 MG TABLET (FP) PO PRN (10:20)
[2021-01-02] MEDS: THIAMINE HCL 100 MG TABLET (FP) PO SCH (21:37)
[2021-01-02] MEDS: MELATONIN 5 MG TABLETS PO SCH (21:37)
[2021-01-02] MEDS: hydrOXYzine PAMOATE 50 MG CAPSULE (FP) PO PRN (21:38)
[2021-01-03] MEDS: NICOTINE POLACRILEX 2 MG GUM BUC PRN ×3 (06:23→13:55)
[2021-01-03] MEDS: GABAPENTIN 100 MG CAPSULE PO SCH ×3 (06:23→21:11)
[2021-01-03] MEDS: methaDONE HCL 40 MG DISPERSABLE TABLET PO SCH (06:23)
[2021-01-03] MEDS: PRENATAL VITAMINS W/ FOLIC ACID TABLET (FP) PO SCH (10:20)
[2021-01-03] MEDS: SERTRALINE HCL 50 MG TABLET (FP) PO SCH (10:20)
[2021-01-03] MEDS: hydrOXYzine PAMOATE 50 MG CAPSULE (FP) PO PRN ×2 (10:21→21:10)
[2021-01-03] MEDS: IBUPROFEN 400 MG TABLET (FP) PO PRN (10:22)
[2021-01-03] MEDS: MAGNESIUM HYDROX 2400MG/30ML ORAL SUSPENSION 30 ML CUP PO PRN (17:56)
[2021-01-03] MEDS: THIAMINE HCL 100 MG TABLET (FP) PO SCH (21:11)
[2021-01-03] MEDS: MELATONIN 5 MG TABLETS PO SCH (21:11)
[2021-01-04] MEDS: methaDONE HCL 40 MG DISPERSABLE TABLET PO SCH (06:35)
[2021-01-04] MEDS: GABAPENTIN 100 MG CAPSULE PO SCH ×3 (06:35→21:01)
[2021-01-04] MEDS: IBUPROFEN 400 MG TABLET (FP) PO PRN ×2 (10:19→21:02)
[2021-01-04] MEDS: hydrOXYzine PAMOATE 50 MG CAPSULE (FP) PO PRN ×2 (10:19→21:01)
[2021-01-04] MEDS: SERTRALINE HCL 50 MG TABLET (FP) PO SCH (10:19)
[2021-01-04] MEDS: NICOTINE POLACRILEX 2 MG GUM BUC PRN ×4 (10:19→19:45)
[2021-01-04] MEDS: PRENATAL VITAMINS W/ FOLIC ACID TABLET (FP) PO SCH (10:19)
[2021-01-04] MEDS: THIAMINE HCL 100 MG TABLET (FP) PO SCH (21:02)
[2021-01-04] MEDS: MELATONIN 5 MG TABLETS PO SCH (21:02)
[2021-01-05] MEDS: NICOTINE POLACRILEX 2 MG GUM BUC PRN ×2 (06:11→14:46)
[2021-01-05] MEDS: methaDONE HCL 40 MG DISPERSABLE TABLET PO SCH (06:11)
[2021-01-05] MEDS: GABAPENTIN 100 MG CAPSULE PO SCH ×3 (06:11→21:11)
[2021-01-05] MEDS: PRENATAL VITAMINS W/ FOLIC ACID TABLET (FP) PO SCH (10:06)
[2021-01-05] MEDS: SERTRALINE HCL 50 MG TABLET (FP) PO SCH (10:06)
[2021-01-05] MEDS: hydrOXYzine PAMOATE 50 MG CAPSULE (FP) PO PRN (10:07)
[2021-01-05] MEDS: IBUPROFEN 400 MG TABLET (FP) PO PRN ×2 (10:07→21:12)
[2021-01-05] MEDS: MAGNESIUM HYDROX 2400MG/30ML ORAL SUSPENSION 30 ML CUP PO PRN (11:54)
[2021-01-05] MEDS: THIAMINE HCL 100 MG TABLET (FP) PO SCH (21:10)
[2021-01-05] MEDS: MELATONIN 5 MG TABLETS PO SCH (21:10)
[2021-01-06] MEDS: methaDONE HCL 40 MG DISPERSABLE TABLET PO SCH (06:17)
[2021-01-06] MEDS: GABAPENTIN 100 MG CAPSULE PO SCH ×3 (06:17→21:43)
[2021-01-06] MEDS: NICOTINE POLACRILEX 2 MG GUM BUC PRN ×3 (06:17→21:44)
[2021-01-06] MEDS: hydrOXYzine PAMOATE 50 MG CAPSULE (FP) PO PRN ×2 (09:20→21:45)
[2021-01-06] MEDS: PRENATAL VITAMINS W/ FOLIC ACID TABLET (FP) PO SCH (09:20)
[2021-01-06] MEDS: SERTRALINE HCL 50 MG TABLET (FP) PO SCH (09:20)
[2021-01-06] MEDS: IBUPROFEN 400 MG TABLET (FP) PO PRN ×2 (09:20→21:45)
[2021-01-06] MEDS: MELATONIN 5 MG TABLETS PO SCH (21:43)
[2021-01-06] MEDS: THIAMINE HCL 100 MG TABLET (FP) PO SCH (21:43)
[2021-01-07] MEDS: methaDONE HCL 40 MG DISPERSABLE TABLET PO SCH (06:20)
[2021-01-07] MEDS: GABAPENTIN 100 MG CAPSULE PO SCH ×3 (06:20→21:04)
[2021-01-07] MEDS: NICOTINE POLACRILEX 2 MG GUM BUC PRN ×3 (06:21→21:07)
[2021-01-07] MEDS: MAGNESIUM CITRATE 300 ML BOTTLE PO PRN (07:16)
[2021-01-07] MEDS: PRENATAL VITAMINS W/ FOLIC ACID TABLET (FP) PO SCH (10:24)
[2021-01-07] MEDS: SERTRALINE HCL 50 MG TABLET (FP) PO SCH (10:24)
[2021-01-07] MEDS: hydrOXYzine PAMOATE 50 MG CAPSULE (FP) PO PRN ×2 (10:25→21:05)
[2021-01-07] MEDS: IBUPROFEN 400 MG TABLET (FP) PO PRN ×2 (10:25→21:06)
[2021-01-07] MEDS: DOCUSATE SODIUM 100 MG CAPSULE (FP) PO SCH (21:05)
[2021-01-07] MEDS: MELATONIN 5 MG TABLETS PO SCH (21:05)
[2021-01-07] MEDS: THIAMINE HCL 100 MG TABLET (FP) PO SCH (21:05)
[2021-01-07] MEDS: HYDROCORTISONE 1% TOPICAL OINT 30 GM TUBE TP SCH (21:46)
[2021-01-08] MEDS: GABAPENTIN 100 MG CAPSULE PO SCH ×3 (06:32→21:35)
[2021-01-08] MEDS: methaDONE HCL 40 MG DISPERSABLE TABLET PO SCH (06:33)
[2021-01-08] MEDS: NICOTINE POLACRILEX 2 MG GUM BUC PRN ×4 (06:35→21:37)
[2021-01-08] MEDS: PRENATAL VITAMINS W/ FOLIC ACID TABLET (FP) PO SCH (10:27)
[2021-01-08] MEDS: SERTRALINE HCL 50 MG TABLET (FP) PO SCH (10:27)
[2021-01-08] MEDS: IBUPROFEN 400 MG TABLET (FP) PO PRN ×2 (10:27→21:36)
[2021-01-08] MEDS: hydrOXYzine PAMOATE 50 MG CAPSULE (FP) PO PRN ×2 (10:29→21:35)
[2021-01-08] MEDS: HYDROCORTISONE 1% TOPICAL OINT 30 GM TUBE TP SCH ×2 (10:30→21:55)
[2021-01-08 14:40] LABS: PH,URINE 6.5 (5.0-8.0); URINE APPEARANCE CLEAR; URINE BILIRUBIN NEGATIVE (NEGATIVE); URINE COLOR YELLOW; URINE GLUCOSE (UA) NEGATIVE (NEGATIVE); URINE KETONE NEGATIVE (NEGATIVE); URINE LEUK ESTERASE NEGATIVE (NEGATIVE); URINE NITRITE NEGATIVE (NEGATIVE); URINE PROTEIN NEGATIVE (NEGATIVE); URINE UROBILINOGEN 0.2 mg/dL (0.2-1.0)
[2021-01-08] MEDS: LIDOCAINE 5% TOPICAL PATCH TP SCH (14:46)
[2021-01-08] MEDS: DOCUSATE SODIUM 100 MG CAPSULE (FP) PO SCH (21:35)
[2021-01-08] MEDS: THIAMINE HCL 100 MG TABLET (FP) PO SCH (21:36)
[2021-01-08] MEDS: MELATONIN 5 MG TABLETS PO SCH (21:36)
[2021-01-08] MEDS: LIDOCAINE PATCH REMOVAL MC SCH (21:55)
[2021-01-09] MEDS: methaDONE HCL 40 MG DISPERSABLE TABLET PO SCH (06:20)
[2021-01-09] MEDS: GABAPENTIN 100 MG CAPSULE PO SCH ×3 (06:20→21:04)
[2021-01-09] MEDS: PRENATAL VITAMINS W/ FOLIC ACID TABLET (FP) PO SCH (09:37)
[2021-01-09] MEDS: SERTRALINE HCL 50 MG TABLET (FP) PO SCH (09:37)
[2021-01-09] MEDS: LIDOCAINE 5% TOPICAL PATCH TP SCH (09:38)
[2021-01-09] MEDS: IBUPROFEN 400 MG TABLET (FP) PO PRN ×2 (09:38→21:05)
[2021-01-09] MEDS: HYDROCORTISONE 1% TOPICAL OINT 30 GM TUBE TP SCH ×2 (10:14→21:06)
[2021-01-09] MEDS: NICOTINE POLACRILEX 2 MG GUM BUC PRN ×2 (13:09→19:04)
[2021-01-09] MEDS: hydrOXYzine PAMOATE 50 MG CAPSULE (FP) PO PRN ×2 (14:35→21:05)
[2021-01-09] MEDS: MAGNESIUM HYDROX 2400MG/30ML ORAL SUSPENSION 30 ML CUP PO PRN (19:04)
[2021-01-09] MEDS: DOCUSATE SODIUM 100 MG CAPSULE (FP) PO SCH (21:04)
[2021-01-09] MEDS: LIDOCAINE PATCH REMOVAL MC SCH (21:05)
[2021-01-09] MEDS: THIAMINE HCL 100 MG TABLET (FP) PO SCH (21:05)
[2021-01-09] MEDS: MELATONIN 5 MG TABLETS PO SCH (21:05)
[2021-01-10] MEDS: GABAPENTIN 100 MG CAPSULE PO SCH ×3 (06:18→21:25)
[2021-01-10] MEDS: NICOTINE POLACRILEX 2 MG GUM BUC PRN ×4 (06:18→21:26)
[2021-01-10] MEDS: methaDONE HCL 40 MG DISPERSABLE TABLET PO SCH (06:18)
[2021-01-10] MEDS: PRENATAL VITAMINS W/ FOLIC ACID TABLET (FP) PO SCH (10:28)
[2021-01-10] MEDS: HYDROCORTISONE 1% TOPICAL OINT 30 GM TUBE TP SCH ×2 (10:28→21:26)
[2021-01-10] MEDS: SERTRALINE HCL 50 MG TABLET (FP) PO SCH (10:28)
[2021-01-10] MEDS: LIDOCAINE 5% TOPICAL PATCH TP SCH (10:28)
[2021-01-10] MEDS: hydrOXYzine PAMOATE 50 MG CAPSULE (FP) PO PRN (10:28)
[2021-01-10] MEDS: IBUPROFEN 400 MG TABLET (FP) PO PRN ×2 (10:29→19:01)
[2021-01-10] MEDS: MAGNESIUM HYDROX 2400MG/30ML ORAL SUSPENSION 30 ML CUP PO PRN (12:04)
[2021-01-10] MEDS: THIAMINE HCL 100 MG TABLET (FP) PO SCH (21:25)
[2021-01-10] MEDS: DOCUSATE SODIUM 100 MG CAPSULE (FP) PO SCH (21:25)
[2021-01-10] MEDS: MELATONIN 5 MG TABLETS PO SCH (21:25)
[2021-01-10] MEDS: LIDOCAINE PATCH REMOVAL MC SCH (21:26)
[2021-01-11] MEDS: methaDONE HCL 40 MG DISPERSABLE TABLET PO SCH (06:11)
[2021-01-11] MEDS: GABAPENTIN 100 MG CAPSULE PO SCH ×3 (06:11→21:01)
[2021-01-11] MEDS: NICOTINE POLACRILEX 2 MG GUM BUC PRN ×3 (06:13→21:02)
[2021-01-11] MEDS: PRENATAL VITAMINS W/ FOLIC ACID TABLET (FP) PO SCH (10:26)
[2021-01-11] MEDS: IBUPROFEN 400 MG TABLET (FP) PO PRN ×2 (10:26→21:01)
[2021-01-11] MEDS: SERTRALINE HCL 50 MG TABLET (FP) PO SCH (10:26)
[2021-01-11] MEDS: hydrOXYzine PAMOATE 50 MG CAPSULE (FP) PO PRN (10:26)
[2021-01-11] MEDS: LIDOCAINE 5% TOPICAL PATCH TP SCH (10:28)
[2021-01-11] MEDS: HYDROCORTISONE 1% TOPICAL OINT 30 GM TUBE TP SCH ×2 (10:29→21:02)
[2021-01-11] MEDS: MAGNESIUM HYDROX 2400MG/30ML ORAL SUSPENSION 30 ML CUP PO PRN (11:42)
[2021-01-11] MEDS: MELATONIN 5 MG TABLETS PO SCH (21:01)
[2021-01-11] MEDS: THIAMINE HCL 100 MG TABLET (FP) PO SCH (21:01)
[2021-01-11] MEDS: DOCUSATE SODIUM 100 MG CAPSULE (FP) PO SCH (21:01)
[2021-01-11] MEDS: LIDOCAINE PATCH REMOVAL MC SCH (21:02)
[2021-01-12] MEDS: GABAPENTIN 100 MG CAPSULE PO SCH ×3 (06:20→21:42)
[2021-01-12] MEDS: methaDONE HCL 40 MG DISPERSABLE TABLET PO SCH (06:20)
[2021-01-12] MEDS: NICOTINE POLACRILEX 2 MG GUM BUC PRN ×2 (07:56→10:04)
[2021-01-12] MEDS: hydrOXYzine PAMOATE 50 MG CAPSULE (FP) PO PRN ×2 (10:03→21:42)
[2021-01-12] MEDS: SERTRALINE HCL 50 MG TABLET (FP) PO SCH (10:03)
[2021-01-12] MEDS: LIDOCAINE 5% TOPICAL PATCH TP SCH (10:03)
[2021-01-12] MEDS: PRENATAL VITAMINS W/ FOLIC ACID TABLET (FP) PO SCH (10:03)
[2021-01-12] MEDS: IBUPROFEN 400 MG TABLET (FP) PO PRN ×2 (10:04→17:24)
[2021-01-12] MEDS: HYDROCORTISONE 1% TOPICAL OINT 30 GM TUBE TP SCH ×2 (10:04→21:43)
[2021-01-12] MEDS: THIAMINE HCL 100 MG TABLET (FP) PO SCH (21:42)
[2021-01-12] MEDS: DOCUSATE SODIUM 100 MG CAPSULE (FP) PO SCH (21:42)
[2021-01-12] MEDS: MELATONIN 5 MG TABLETS PO SCH (21:43)
[2021-01-12] MEDS: LIDOCAINE PATCH REMOVAL MC SCH (21:43)
[2021-01-13] MEDS: methaDONE HCL 40 MG DISPERSABLE TABLET PO SCH (06:06)
[2021-01-13] MEDS: GABAPENTIN 100 MG CAPSULE PO SCH ×3 (06:07→21:01)
[2021-01-13] MEDS: NICOTINE POLACRILEX 2 MG GUM BUC PRN ×2 (06:07→12:50)
[2021-01-13] MEDS: SERTRALINE HCL 50 MG TABLET (FP) PO SCH (09:30)
[2021-01-13] MEDS: LIDOCAINE 5% TOPICAL PATCH TP SCH (09:30)
[2021-01-13] MEDS: IBUPROFEN 400 MG TABLET (FP) PO PRN ×2 (09:30→21:02)
[2021-01-13] MEDS: PRENATAL VITAMINS W/ FOLIC ACID TABLET (FP) PO SCH (09:30)
[2021-01-13] MEDS: HYDROCORTISONE 1% TOPICAL OINT 30 GM TUBE TP SCH ×2 (09:31→21:03)
[2021-01-13] MEDS: MAGNESIUM HYDROX 2400MG/30ML ORAL SUSPENSION 30 ML CUP PO PRN (12:49)
[2021-01-13] MEDS: hydrOXYzine PAMOATE 50 MG CAPSULE (FP) PO PRN ×2 (14:30→21:01)
[2021-01-13] MEDS: DOCUSATE SODIUM 100 MG CAPSULE (FP) PO SCH (21:00)
[2021-01-13] MEDS: MELATONIN 5 MG TABLETS PO SCH (21:01)
[2021-01-13] MEDS: THIAMINE HCL 100 MG TABLET (FP) PO SCH (21:02)
[2021-01-13] MEDS: LIDOCAINE PATCH REMOVAL MC SCH (21:03)
[2021-01-14] MEDS: methaDONE HCL 40 MG DISPERSABLE TABLET PO SCH (06:04)
[2021-01-14] MEDS: GABAPENTIN 100 MG CAPSULE PO SCH ×3 (06:04→21:31)
[2021-01-14] MEDS: NICOTINE POLACRILEX 2 MG GUM BUC PRN ×4 (06:04→13:44)
[2021-01-14] MEDS: hydrOXYzine PAMOATE 50 MG CAPSULE (FP) PO PRN (09:58)
[2021-01-14] MEDS: SERTRALINE HCL 50 MG TABLET (FP) PO SCH (09:58)
[2021-01-14] MEDS: PRENATAL VITAMINS W/ FOLIC ACID TABLET (FP) PO SCH (09:58)
[2021-01-14] MEDS: LIDOCAINE 5% TOPICAL PATCH TP SCH (09:58)
[2021-01-14] MEDS: HYDROCORTISONE 1% TOPICAL OINT 30 GM TUBE TP SCH (09:59)
[2021-01-14] MEDS: IBUPROFEN 400 MG TABLET (FP) PO PRN ×2 (09:59→21:32)
[2021-01-14] MEDS: MAGNESIUM HYDROX 2400MG/30ML ORAL SUSPENSION 30 ML CUP PO PRN (17:47)
[2021-01-14] MEDS: DOCUSATE SODIUM 100 MG CAPSULE (FP) PO SCH (21:31)
[2021-01-14] MEDS: THIAMINE HCL 100 MG TABLET (FP) PO SCH (21:32)
[2021-01-14] MEDS: MELATONIN 5 MG TABLETS PO SCH (21:32)
[2021-01-14] MEDS: LIDOCAINE PATCH REMOVAL MC SCH (21:33)
[2021-01-15] MEDS: methaDONE HCL 40 MG DISPERSABLE TABLET PO SCH (06:21)
[2021-01-15] MEDS: NICOTINE POLACRILEX 2 MG GUM BUC PRN ×4 (06:21→21:01)
[2021-01-15] MEDS: GABAPENTIN 100 MG CAPSULE PO SCH ×3 (06:21→21:00)
[2021-01-15] MEDS: LIDOCAINE 5% TOPICAL PATCH TP SCH (09:32)
[2021-01-15] MEDS: IBUPROFEN 400 MG TABLET (FP) PO PRN ×2 (09:32→21:01)
[2021-01-15] MEDS: PRENATAL VITAMINS W/ FOLIC ACID TABLET (FP) PO SCH (09:32)
[2021-01-15] MEDS: hydrOXYzine PAMOATE 50 MG CAPSULE (FP) PO PRN (09:32)
[2021-01-15] MEDS: SERTRALINE HCL 50 MG TABLET (FP) PO SCH (09:32)
[2021-01-15] MEDS: MAGNESIUM HYDROX 2400MG/30ML ORAL SUSPENSION 30 ML CUP PO PRN (12:25)
[2021-01-15] MEDS: DOCUSATE SODIUM 100 MG CAPSULE (FP) PO SCH (21:00)
[2021-01-15] MEDS: THIAMINE HCL 100 MG TABLET (FP) PO SCH (21:00)
[2021-01-15] MEDS: MELATONIN 5 MG TABLETS PO SCH (21:00)
[2021-01-15] MEDS: LIDOCAINE PATCH REMOVAL MC SCH (21:02)
[2021-01-16] MEDS: methaDONE HCL 40 MG DISPERSABLE TABLET PO SCH (06:00)
[2021-01-16] MEDS: NICOTINE POLACRILEX 2 MG GUM BUC PRN ×3 (06:00→21:30)
[2021-01-16] MEDS: GABAPENTIN 100 MG CAPSULE PO SCH ×3 (06:00→21:29)
[2021-01-16] MEDS: PRENATAL VITAMINS W/ FOLIC ACID TABLET (FP) PO SCH (10:01)
[2021-01-16] MEDS: IBUPROFEN 400 MG TABLET (FP) PO PRN ×2 (10:02→21:30)
[2021-01-16] MEDS: LIDOCAINE 5% TOPICAL PATCH TP SCH (10:02)
[2021-01-16] MEDS: SERTRALINE HCL 50 MG TABLET (FP) PO SCH (10:02)
[2021-01-16] MEDS: MAGNESIUM HYDROX 2400MG/30ML ORAL SUSPENSION 30 ML CUP PO PRN (12:02)
[2021-01-16] MEDS: MELATONIN 5 MG TABLETS PO SCH (21:29)
[2021-01-16] MEDS: DOCUSATE SODIUM 100 MG CAPSULE (FP) PO SCH (21:29)
[2021-01-16] MEDS: THIAMINE HCL 100 MG TABLET (FP) PO SCH (21:29)
[2021-01-16] MEDS: LIDOCAINE PATCH REMOVAL MC SCH (21:31)
[2021-01-17] MEDS: NICOTINE POLACRILEX 2 MG GUM BUC PRN ×5 (06:18→17:29)
[2021-01-17] MEDS: methaDONE HCL 40 MG DISPERSABLE TABLET PO SCH (06:18)
[2021-01-17] MEDS: GABAPENTIN 100 MG CAPSULE PO SCH (06:18)
[2021-01-17] MEDS: PRENATAL VITAMINS W/ FOLIC ACID TABLET (FP) PO SCH (09:45)
[2021-01-17] MEDS: SERTRALINE HCL 50 MG TABLET (FP) PO SCH (09:45)
[2021-01-17] MEDS: LIDOCAINE 5% TOPICAL PATCH TP SCH (09:46)
[2021-01-17] MEDS: IBUPROFEN 400 MG TABLET (FP) PO PRN ×2 (09:47→21:05)
[2021-01-17] MEDS: NICOTINE 10 MG CARTRIDGE (INHALER) IH SCH (11:50)
[2021-01-17] MEDS: MAGNESIUM HYDROX 2400MG/30ML ORAL SUSPENSION 30 ML CUP PO PRN (12:42)
[2021-01-17] MEDS: GABAPENTIN 300 MG CAPSULE PO SCH ×2 (14:16→21:04)
[2021-01-17] MEDS: DOCUSATE SODIUM 100 MG CAPSULE (FP) PO SCH (21:04)
[2021-01-17] MEDS: THIAMINE HCL 100 MG TABLET (FP) PO SCH (21:05)
[2021-01-17] MEDS: SUVOREXANT 15 MG TABLET PO PRN (21:05)
[2021-01-17] MEDS: LIDOCAINE PATCH REMOVAL MC SCH (21:06)
[2021-01-18] MEDS: methaDONE HCL 40 MG DISPERSABLE TABLET PO SCH (06:28)
[2021-01-18] MEDS: GABAPENTIN 300 MG CAPSULE PO SCH ×3 (06:28→21:07)
[2021-01-18] MEDS: NICOTINE POLACRILEX 2 MG GUM BUC PRN ×4 (06:29→21:09)
[2021-01-18] MEDS: NICOTINE 10 MG CARTRIDGE (INHALER) IH SCH (10:17)
[2021-01-18] MEDS: PRENATAL VITAMINS W/ FOLIC ACID TABLET (FP) PO SCH (10:17)
[2021-01-18] MEDS: LIDOCAINE 5% TOPICAL PATCH TP SCH (10:17)
[2021-01-18] MEDS: IBUPROFEN 400 MG TABLET (FP) PO PRN ×2 (10:18→21:09)
[2021-01-18] MEDS: SERTRALINE HCL 50 MG TABLET (FP) PO SCH (10:18)
[2021-01-18] MEDS: MAGNESIUM HYDROX 2400MG/30ML ORAL SUSPENSION 30 ML CUP PO PRN (14:29)
[2021-01-18] MEDS: DOCUSATE SODIUM 100 MG CAPSULE (FP) PO SCH (21:07)
[2021-01-18] MEDS: THIAMINE HCL 100 MG TABLET (FP) PO SCH (21:07)
[2021-01-18] MEDS: FLUOCINONIDE 0.05% CREAM (15 GM TUBE) TP SCH (21:08)
[2021-01-18] MEDS: SUVOREXANT 15 MG TABLET PO PRN (21:09)
[2021-01-18] MEDS: CARBAMIDE PEROXIDE 6.5% OTIC 15 ML BOTTLE AU SCH (21:10)
[2021-01-18] MEDS: LIDOCAINE PATCH REMOVAL MC SCH (21:10)
[2021-01-19] MEDS: GABAPENTIN 300 MG CAPSULE PO SCH ×3 (06:03→21:05)
[2021-01-19] MEDS: methaDONE HCL 40 MG DISPERSABLE TABLET PO SCH (06:03)
[2021-01-19] MEDS: NICOTINE POLACRILEX 2 MG GUM BUC PRN ×4 (08:23→18:52)
[2021-01-19] MEDS: PRENATAL VITAMINS W/ FOLIC ACID TABLET (FP) PO SCH (09:51)
[2021-01-19] MEDS: FLUOCINONIDE 0.05% CREAM (15 GM TUBE) TP SCH ×2 (09:51→21:06)
[2021-01-19] MEDS: NICOTINE 10 MG CARTRIDGE (INHALER) IH SCH (09:51)
[2021-01-19] MEDS: SERTRALINE HCL 50 MG TABLET (FP) PO SCH (09:51)
[2021-01-19] MEDS: IBUPROFEN 400 MG TABLET (FP) PO PRN ×2 (09:52→18:53)
[2021-01-19] MEDS: LIDOCAINE 5% TOPICAL PATCH TP SCH (09:54)
[2021-01-19] MEDS: CARBAMIDE PEROXIDE 6.5% OTIC 15 ML BOTTLE AU SCH ×2 (10:41→21:05)
[2021-01-19] MEDS: MAGNESIUM HYDROX 2400MG/30ML ORAL SUSPENSION 30 ML CUP PO PRN (12:32)
[2021-01-19] MEDS: THIAMINE HCL 100 MG TABLET (FP) PO SCH (21:05)
[2021-01-19] MEDS: DOCUSATE SODIUM 100 MG CAPSULE (FP) PO SCH (21:05)
[2021-01-19] MEDS: SUVOREXANT 15 MG TABLET PO PRN (21:06)
[2021-01-19] MEDS: LIDOCAINE PATCH REMOVAL MC SCH (21:07)
[2021-01-20] MEDS: NICOTINE POLACRILEX 2 MG GUM BUC PRN ×5 (06:15→21:38)
[2021-01-20] MEDS: GABAPENTIN 300 MG CAPSULE PO SCH ×3 (06:15→21:34)
[2021-01-20] MEDS: methaDONE HCL 40 MG DISPERSABLE TABLET PO SCH (06:15)
[2021-01-20] MEDS: CARBAMIDE PEROXIDE 6.5% OTIC 15 ML BOTTLE AU SCH ×2 (10:00→21:37)
[2021-01-20] MEDS: NICOTINE 10 MG CARTRIDGE (INHALER) IH SCH (10:00)
[2021-01-20] MEDS: PRENATAL VITAMINS W/ FOLIC ACID TABLET (FP) PO SCH (10:00)
[2021-01-20] MEDS: LIDOCAINE 5% TOPICAL PATCH TP SCH (10:00)
[2021-01-20] MEDS: FLUOCINONIDE 0.05% CREAM (15 GM TUBE) TP SCH ×2 (10:00→21:34)
[2021-01-20] MEDS: SERTRALINE HCL 50 MG TABLET (FP) PO SCH (10:00)
[2021-01-20] MEDS: IBUPROFEN 400 MG TABLET (FP) PO PRN ×2 (10:01→21:35)
[2021-01-20] MEDS: MAGNESIUM CITRATE 300 ML BOTTLE PO PRN (12:48)
[2021-01-20] MEDS: DOCUSATE SODIUM 100 MG CAPSULE (FP) PO SCH (21:34)
[2021-01-20] MEDS: THIAMINE HCL 100 MG TABLET (FP) PO SCH (21:34)
[2021-01-20] MEDS: LIDOCAINE PATCH REMOVAL MC SCH (21:37)
[2021-01-20] MEDS: SUVOREXANT 15 MG TABLET PO PRN (21:46)
[2021-01-20] MEDS ORDERED: SUVOREXANT 10 MG TABLET PO PRN (22:00)
[2021-01-21] MEDS: NICOTINE POLACRILEX 2 MG GUM BUC PRN ×3 (06:12→19:32)
[2021-01-21] MEDS: GABAPENTIN 300 MG CAPSULE PO SCH ×3 (06:12→21:10)
[2021-01-21] MEDS: methaDONE HCL 40 MG DISPERSABLE TABLET PO SCH (06:12)
[2021-01-21] MEDS: FLUOCINONIDE 0.05% CREAM (15 GM TUBE) TP SCH ×2 (09:33→21:11)
[2021-01-21] MEDS: LIDOCAINE 5% TOPICAL PATCH TP SCH (09:33)
[2021-01-21] MEDS: IBUPROFEN 400 MG TABLET (FP) PO PRN ×2 (09:33→21:11)
[2021-01-21] MEDS: NICOTINE 10 MG CARTRIDGE (INHALER) IH SCH (09:34)
[2021-01-21] MEDS: PRENATAL VITAMINS W/ FOLIC ACID TABLET (FP) PO SCH (09:34)
[2021-01-21] MEDS: SERTRALINE HCL 50 MG TABLET (FP) PO SCH (09:35)
[2021-01-21] MEDS: CARBAMIDE PEROXIDE 6.5% OTIC 15 ML BOTTLE AU SCH ×2 (09:35→21:10)
[2021-01-21] MEDS: hydrOXYzine PAMOATE 50 MG CAPSULE (FP) PO PRN (13:47)
[2021-01-21] MEDS: THIAMINE HCL 100 MG TABLET (FP) PO SCH (21:10)
[2021-01-21] MEDS: SUVOREXANT 15 MG TABLET PO PRN (21:10)
[2021-01-21] MEDS: DOCUSATE SODIUM 100 MG CAPSULE (FP) PO SCH (21:10)
[2021-01-21] MEDS: LIDOCAINE PATCH REMOVAL MC SCH (21:13)
[2021-01-22] MEDS ORDERED: PT OWN MED DRAWER 7, Y5N ONE ×3 (03:13→19:13)
[2021-01-22] MEDS: GABAPENTIN 300 MG CAPSULE PO SCH ×3 (06:02→21:03)
[2021-01-22] MEDS: methaDONE HCL 40 MG DISPERSABLE TABLET PO SCH (06:02)
[2021-01-22] MEDS: NICOTINE POLACRILEX 2 MG GUM BUC PRN ×3 (07:21→17:59)
[2021-01-22] MEDS: PRENATAL VITAMINS W/ FOLIC ACID TABLET (FP) PO SCH (10:20)
[2021-01-22] MEDS: SERTRALINE HCL 50 MG TABLET (FP) PO SCH (10:20)
[2021-01-22] MEDS: CARBAMIDE PEROXIDE 6.5% OTIC 15 ML BOTTLE AU SCH ×2 (10:21→21:05)
[2021-01-22] MEDS: LIDOCAINE 5% TOPICAL PATCH TP SCH (10:21)
[2021-01-22] MEDS: FLUOCINONIDE 0.05% CREAM (15 GM TUBE) TP SCH ×2 (10:21→21:05)
[2021-01-22] MEDS: NICOTINE 10 MG CARTRIDGE (INHALER) IH SCH (10:21)
[2021-01-22] MEDS: IBUPROFEN 400 MG TABLET (FP) PO PRN ×2 (10:22→21:04)
[2021-01-22] MEDS: hydrOXYzine PAMOATE 50 MG CAPSULE (FP) PO PRN (14:10)
[2021-01-22] MEDS: LACTULOSE 20 GM/30 ML UDC (FOR ORAL USE ONLY) PO PRN (14:11)
[2021-01-22] MEDS: THIAMINE HCL 100 MG TABLET (FP) PO SCH (21:03)
[2021-01-22] MEDS: DOCUSATE SODIUM 100 MG CAPSULE (FP) PO SCH (21:03)
[2021-01-22] MEDS: SUVOREXANT 15 MG TABLET PO PRN (21:04)
[2021-01-22] MEDS: LIDOCAINE PATCH REMOVAL MC SCH (21:05)
[2021-01-23] MEDS: GABAPENTIN 300 MG CAPSULE PO SCH ×3 (06:13→21:08)
[2021-01-23] MEDS: methaDONE HCL 40 MG DISPERSABLE TABLET PO SCH (06:13)
[2021-01-23] MEDS: NICOTINE POLACRILEX 2 MG GUM BUC PRN ×3 (06:16→16:20)
[2021-01-23] MEDS: hydrOXYzine PAMOATE 50 MG CAPSULE (FP) PO PRN ×2 (09:46→21:09)
[2021-01-23] MEDS: PRENATAL VITAMINS W/ FOLIC ACID TABLET (FP) PO SCH (09:46)
[2021-01-23] MEDS: CARBAMIDE PEROXIDE 6.5% OTIC 15 ML BOTTLE AU SCH ×2 (09:47→21:10)
[2021-01-23] MEDS: NICOTINE 10 MG CARTRIDGE (INHALER) IH SCH (09:47)
[2021-01-23] MEDS: SERTRALINE HCL 50 MG TABLET (FP) PO SCH (09:47)
[2021-01-23] MEDS: LIDOCAINE 5% TOPICAL PATCH TP SCH (09:47)
[2021-01-23] MEDS: IBUPROFEN 400 MG TABLET (FP) PO PRN ×2 (09:48→21:10)
[2021-01-23] MEDS: FLUOCINONIDE 0.05% CREAM (15 GM TUBE) TP SCH ×2 (10:52→23:56)
[2021-01-23] MEDS: LACTULOSE 20 GM/30 ML UDC (FOR ORAL USE ONLY) PO PRN (14:15)
[2021-01-23] MEDS: DOCUSATE SODIUM 100 MG CAPSULE (FP) PO SCH (21:08)
[2021-01-23] MEDS: SUVOREXANT 15 MG TABLET PO PRN (21:08)
[2021-01-23] MEDS: THIAMINE HCL 100 MG TABLET (FP) PO SCH (21:09)
[2021-01-23] MEDS: LIDOCAINE PATCH REMOVAL MC SCH (21:09)
[2021-01-24] MEDS: GABAPENTIN 300 MG CAPSULE PO SCH ×3 (06:28→21:30)
[2021-01-24] MEDS: methaDONE HCL 40 MG DISPERSABLE TABLET PO SCH (06:29)
[2021-01-24] MEDS: FLUOCINONIDE 0.05% CREAM (15 GM TUBE) TP SCH ×2 (09:45→21:33)
[2021-01-24] MEDS: NICOTINE 10 MG CARTRIDGE (INHALER) IH SCH (09:46)
[2021-01-24] MEDS: PRENATAL VITAMINS W/ FOLIC ACID TABLET (FP) PO SCH (09:46)
[2021-01-24] MEDS: SERTRALINE HCL 50 MG TABLET (FP) PO SCH (09:46)
[2021-01-24] MEDS: CARBAMIDE PEROXIDE 6.5% OTIC 15 ML BOTTLE AU SCH ×2 (09:46→21:33)
[2021-01-24] MEDS: LIDOCAINE 5% TOPICAL PATCH TP SCH (09:46)
[2021-01-24] MEDS: NICOTINE POLACRILEX 2 MG GUM BUC PRN ×3 (09:46→19:41)
[2021-01-24] MEDS: IBUPROFEN 400 MG TABLET (FP) PO PRN ×2 (09:47→21:31)
[2021-01-24] MEDS: LACTULOSE 20 GM/30 ML UDC (FOR ORAL USE ONLY) PO PRN (15:33)
[2021-01-24] MEDS: DOCUSATE SODIUM 100 MG CAPSULE (FP) PO SCH (21:30)
[2021-01-24] MEDS: THIAMINE HCL 100 MG TABLET (FP) PO SCH (21:30)
[2021-01-24] MEDS: hydrOXYzine PAMOATE 50 MG CAPSULE (FP) PO PRN (21:32)
[2021-01-24] MEDS: LIDOCAINE PATCH REMOVAL MC SCH (21:33)
[2021-01-25] MEDS: GABAPENTIN 300 MG CAPSULE PO SCH ×3 (06:12→21:10)
[2021-01-25] MEDS: NICOTINE POLACRILEX 2 MG GUM BUC PRN ×4 (06:12→15:11)
[2021-01-25] MEDS: methaDONE HCL 40 MG DISPERSABLE TABLET PO SCH (06:12)
[2021-01-25] MEDS: IBUPROFEN 400 MG TABLET (FP) PO PRN ×2 (09:35→21:11)
[2021-01-25] MEDS: PRENATAL VITAMINS W/ FOLIC ACID TABLET (FP) PO SCH (09:35)
[2021-01-25] MEDS: FLUOCINONIDE 0.05% CREAM (15 GM TUBE) TP SCH ×2 (09:35→21:12)
[2021-01-25] MEDS: SERTRALINE HCL 50 MG TABLET (FP) PO SCH (09:35)
[2021-01-25] MEDS: LIDOCAINE 5% TOPICAL PATCH TP SCH (09:35)
[2021-01-25] MEDS: NICOTINE 10 MG CARTRIDGE (INHALER) IH SCH (09:36)
[2021-01-25] MEDS: CARBAMIDE PEROXIDE 6.5% OTIC 15 ML BOTTLE AU SCH (09:36)
[2021-01-25] MEDS: LACTULOSE 20 GM/30 ML UDC (FOR ORAL USE ONLY) PO PRN (12:35)
[2021-01-25] MEDS: hydrOXYzine PAMOATE 50 MG CAPSULE (FP) PO PRN (21:10)
[2021-01-25] MEDS: DOCUSATE SODIUM 100 MG CAPSULE (FP) PO SCH (21:10)
[2021-01-25] MEDS: THIAMINE HCL 100 MG TABLET (FP) PO SCH (21:11)
[2021-01-25] MEDS: SUVOREXANT 10 MG TABLET PO PRN (21:11)
[2021-01-25] MEDS: LIDOCAINE PATCH REMOVAL MC SCH (21:13)
[2021-01-26] MEDS: methaDONE HCL 40 MG DISPERSABLE TABLET PO SCH (05:56)
[2021-01-26] MEDS: GABAPENTIN 300 MG CAPSULE PO SCH ×3 (05:57→21:40)
[2021-01-26] MEDS: NICOTINE POLACRILEX 2 MG GUM BUC PRN ×3 (05:57→19:45)
[2021-01-26] MEDS: IBUPROFEN 400 MG TABLET (FP) PO PRN ×2 (10:20→21:40)
[2021-01-26] MEDS: SERTRALINE HCL 50 MG TABLET (FP) PO SCH (10:20)
[2021-01-26] MEDS: PRENATAL VITAMINS W/ FOLIC ACID TABLET (FP) PO SCH (10:20)
[2021-01-26] MEDS: FLUOCINONIDE 0.05% CREAM (15 GM TUBE) TP SCH ×2 (10:21→21:41)
[2021-01-26] MEDS: NICOTINE 10 MG CARTRIDGE (INHALER) IH SCH (10:21)
[2021-01-26] MEDS: LIDOCAINE 5% TOPICAL PATCH TP SCH (10:21)
[2021-01-26] MEDS: LACTULOSE 20 GM/30 ML UDC (FOR ORAL USE ONLY) PO PRN (13:10)
[2021-01-26] MEDS: SUVOREXANT 10 MG TABLET PO PRN (21:38)
[2021-01-26] MEDS: DOCUSATE SODIUM 100 MG CAPSULE (FP) PO SCH (21:39)
[2021-01-26] MEDS: THIAMINE HCL 100 MG TABLET (FP) PO SCH (21:39)
[2021-01-26] MEDS: hydrOXYzine PAMOATE 50 MG CAPSULE (FP) PO PRN (21:40)
[2021-01-26] MEDS: LIDOCAINE PATCH REMOVAL MC SCH (21:41)
[2021-01-27] MEDS: NICOTINE POLACRILEX 2 MG GUM BUC PRN ×4 (06:17→21:08)
[2021-01-27] MEDS: methaDONE HCL 40 MG DISPERSABLE TABLET PO SCH (06:17)
[2021-01-27] MEDS: GABAPENTIN 300 MG CAPSULE PO SCH ×3 (06:17→21:06)
[2021-01-27] MEDS: FLUOCINONIDE 0.05% CREAM (15 GM TUBE) TP SCH ×2 (09:28→21:07)
[2021-01-27] MEDS: IBUPROFEN 400 MG TABLET (FP) PO PRN ×2 (09:28→21:07)
[2021-01-27] MEDS: LIDOCAINE 5% TOPICAL PATCH TP SCH (09:29)
[2021-01-27] MEDS: PRENATAL VITAMINS W/ FOLIC ACID TABLET (FP) PO SCH (09:29)
[2021-01-27] MEDS: NICOTINE 10 MG CARTRIDGE (INHALER) IH SCH (09:30)
[2021-01-27] MEDS: SERTRALINE HCL 50 MG TABLET (FP) PO SCH (09:31)
[2021-01-27] MEDS: LACTULOSE 20 GM/30 ML UDC (FOR ORAL USE ONLY) PO PRN (11:34)
[2021-01-27] MEDS: hydrOXYzine PAMOATE 50 MG CAPSULE (FP) PO PRN ×2 (13:31→21:07)
[2021-01-27] MEDS: SUVOREXANT 10 MG TABLET PO PRN (21:06)
[2021-01-27] MEDS: DOCUSATE SODIUM 100 MG CAPSULE (FP) PO SCH (21:06)
[2021-01-27] MEDS: LIDOCAINE PATCH REMOVAL MC SCH (21:07)
[2021-01-27] MEDS: THIAMINE HCL 100 MG TABLET (FP) PO SCH (21:07)
[2021-01-28] MEDS: NICOTINE POLACRILEX 2 MG GUM BUC PRN ×3 (06:08→21:35)
[2021-01-28] MEDS: GABAPENTIN 300 MG CAPSULE PO SCH ×3 (06:08→21:34)
[2021-01-28] MEDS: methaDONE HCL 40 MG DISPERSABLE TABLET PO SCH (06:08)
[2021-01-28] MEDS: SERTRALINE HCL 50 MG TABLET (FP) PO SCH (10:06)
[2021-01-28] MEDS: IBUPROFEN 400 MG TABLET (FP) PO PRN ×2 (10:06→21:33)
[2021-01-28] MEDS: PRENATAL VITAMINS W/ FOLIC ACID TABLET (FP) PO SCH (10:06)
[2021-01-28] MEDS: LIDOCAINE 5% TOPICAL PATCH TP SCH (10:07)
[2021-01-28] MEDS: FLUOCINONIDE 0.05% CREAM (15 GM TUBE) TP SCH ×2 (10:08→21:35)
[2021-01-28] MEDS: NICOTINE 10 MG CARTRIDGE (INHALER) IH SCH (10:08)
[2021-01-28] MEDS: LACTULOSE 20 GM/30 ML UDC (FOR ORAL USE ONLY) PO PRN (10:37)
[2021-01-28] MEDS: hydrOXYzine PAMOATE 50 MG CAPSULE (FP) PO PRN (14:33)
[2021-01-28] MEDS: DOCUSATE SODIUM 100 MG CAPSULE (FP) PO SCH (21:32)
[2021-01-28] MEDS: THIAMINE HCL 100 MG TABLET (FP) PO SCH (21:32)
[2021-01-28] MEDS: SUVOREXANT 10 MG TABLET PO PRN (21:33)
[2021-01-28] MEDS: LIDOCAINE PATCH REMOVAL MC SCH (21:35)
[2021-01-29] MEDS: NICOTINE POLACRILEX 2 MG GUM BUC PRN ×3 (06:21→13:23)
[2021-01-29] MEDS: methaDONE HCL 40 MG DISPERSABLE TABLET PO SCH (06:21)
[2021-01-29] MEDS: GABAPENTIN 300 MG CAPSULE PO SCH ×3 (06:21→21:03)
[2021-01-29 07:18] VITALS: TEMP 97.9
[2021-01-29] MEDS: PRENATAL VITAMINS W/ FOLIC ACID TABLET (FP) PO SCH (09:28)
[2021-01-29] MEDS: SERTRALINE HCL 50 MG TABLET (FP) PO SCH (09:28)
[2021-01-29] MEDS: LIDOCAINE 5% TOPICAL PATCH TP SCH (09:28)
[2021-01-29] MEDS: hydrOXYzine PAMOATE 50 MG CAPSULE (FP) PO PRN ×2 (09:28→21:03)
[2021-01-29] MEDS: FLUOCINONIDE 0.05% CREAM (15 GM TUBE) TP SCH ×2 (09:29→21:06)
[2021-01-29] MEDS: NICOTINE 10 MG CARTRIDGE (INHALER) IH SCH (09:29)
[2021-01-29] MEDS: IBUPROFEN 400 MG TABLET (FP) PO PRN ×2 (09:30→21:05)
[2021-01-29] MEDS: MAGNESIUM HYDROX 2400MG/30ML ORAL SUSPENSION 30 ML CUP PO PRN (10:41)
[2021-01-29] MEDS ORDERED: LACTULOSE 20 GM/30 ML UDC (FOR ORAL USE ONLY) PO ONE (17:33)
[2021-01-29] MEDS: THIAMINE HCL 100 MG TABLET (FP) PO SCH (21:03)
[2021-01-29] MEDS: DOCUSATE SODIUM 100 MG CAPSULE (FP) PO SCH (21:03)
[2021-01-29] MEDS: SUVOREXANT 10 MG TABLET PO PRN (21:03)
[2021-01-29] MEDS: LIDOCAINE PATCH REMOVAL MC SCH (21:06)
[2021-01-30] MEDS: NICOTINE POLACRILEX 2 MG GUM BUC PRN (06:18)
[2021-01-30] MEDS: GABAPENTIN 300 MG CAPSULE PO SCH (06:18)
[2021-01-30] MEDS: methaDONE HCL 40 MG DISPERSABLE TABLET PO SCH (06:18)
[2021-01-30 07:15] VITALS: BP 115/76; PULSE 63
[2021-01-30] MEDS: IBUPROFEN 400 MG TABLET (FP) PO PRN (09:12)
[2021-01-30] MEDS: LIDOCAINE 5% TOPICAL PATCH TP SCH (09:12)
[2021-01-30] MEDS ORDERED: LACTULOSE 20 GM/30 ML UDC (FOR ORAL USE ONLY) PO PRN (10:00)
[2021-01-30 14:07] LABS: SARS-CoV-2 NAA Not Detected (Not Detected)
[2021-01-30] MEDS ORDERED: SUVOREXANT 10 MG TABLET PO PRN (22:00)
== END 2021-01-30 09:32 | disposition home or self-care (01) | DRG 772 ==
LOC: YASAS 11:14 → Y3W 11:15
PROVIDERS: ADMIT Allergy & Immunology; ATTEND Allergy & Immunology
PROC: HZ42ZZZ Group Counseling for Substance Abuse Treatment, Cognitive-Behavioral (ICD-10-PCS; principal; 2020-12-31)
DX: F10.20 Alcohol dependence, uncomplicated (principal); F11.20 Opioid dependence, uncomplicated; F13.20 Sedative, hypnotic or anxiolytic dependence, uncomplicated; F14.20 Cocaine dependence, uncomplicated; F17.210 Nicotine dependence, cigarettes, uncomplicated; F41.9 Anxiety disorder, unspecified; E72.20 Disorder of urea cycle metabolism, unspecified; E66.9 Obesity, unspecified; Z68.31 Body mass index [BMI] 31.0-31.9, adult; Z86.2 Personal history of diseases of the blood and blood-forming organs and certain disorders involving the immune mechanism; Z86.59 Personal history of other mental and behavioral disorders; Z98.890 Other specified postprocedural states; Z59.0 Homelessness; Z56.0 Unemployment, unspecified
CPT/HCPCS: 81003; C9803; U0003; U0005

== ENCOUNTER 2021-03-14 14:23 | Inpatient (IN) | payer OTHER ==
[2021-03-14 16:02] VITALS: BMI 31.3
[2021-03-14] MEDS ORDERED: MAGNESIUM HYDROX 2400MG/30ML ORAL SUSPENSION 30 ML CUP PO PRN (16:43)
[2021-03-14] MEDS ORDERED: MAG HYDROX/AL HYDROX/SIMETH 30 ML UNIT-DOSE CUP PO PRN (16:43)
[2021-03-14] MEDS ORDERED: METHOCARBAMOL 500 MG TABLET PO PRN (16:43)
[2021-03-14] MEDS ORDERED: cloNIDine HCL 0.1 MG TABLET PO PRN (16:43)
[2021-03-14] MEDS ORDERED: IBUPROFEN 400 MG TABLET (FP) PO PRN (16:43)
[2021-03-14] MEDS ORDERED: BISMUTH SUBSALICYLATE 524 MG/30 ML PO PRN (16:43)
[2021-03-14] MEDS ORDERED: clonazePAM 0.5 MG ODT TABLETS SL PRN (16:43)
[2021-03-14] MEDS ORDERED: ONDANSETRON *ODT* 4 MG TABLET SL PRN (16:43)
[2021-03-14] MEDS ORDERED: MENTHOL/PHENOL 1 EACH UD MM PRN (16:43)
[2021-03-14] MEDS ORDERED: NICOTINE 10 MG CARTRIDGE (INHALER) IH PRN (16:43)
[2021-03-14] MEDS ORDERED: ACETAMINOPHEN 325 MG TABLET (FP) PO PRN ×2 (16:43)
[2021-03-14] MEDS ORDERED: MAGNESIUM CITRATE 300 ML BOTTLE PO PRN (16:43)
[2021-03-14] MEDS ORDERED: methaDONE HCL 10 MG TABLET (FOR DETOX USE ONLY) PO ONE (18:30)
[2021-03-14] MEDS: diazePAM 5 MG TABLET PO SCH ×2 (19:27→22:28)
[2021-03-14] MEDS: hydrOXYzine PAMOATE 25 MG CAPSULE (FP) PO SCH ×2 (19:28→22:28)
[2021-03-14] MEDS ORDERED: MELATONIN 5 MG TABLETS PO SCH (22:00)
[2021-03-14] MEDS: THIAMINE HCL 100 MG TABLET (FP) PO SCH (22:28)
[2021-03-15] MEDS: diazePAM 5 MG TABLET PO SCH ×4 (05:53→22:36)
[2021-03-15] MEDS: hydrOXYzine PAMOATE 25 MG CAPSULE (FP) PO SCH ×5 (05:53→22:37)
[2021-03-15] MEDS ORDERED: methaDONE HCL 10 MG TABLET (FOR DETOX USE ONLY) ONE (09:35)
[2021-03-15 09:59] LABS: HEMATOCRIT 31.6 % (35.4-49); HEMOGLOBIN 11.3 GM/dL (11.7-16.9); MCH 29.3 pg (25.7-33.7); MCHC 35.7 g/dl (32.0-35.9); MEAN CELL VOLUME 82.2 fl (80-96); MEAN PLT VOLUME 7.6 fl (7.5-11.1); PLATELET COUNT 248 10^3/uL (134-434); RBC 3.84 M/mm3 (4.00-5.60); RDW 14.4 % (11.9-15.9); WHITE BLOOD COUNT 4.3 K/mm3 (4.0-10.0)
[2021-03-15] MEDS: NICOTINE POLACRILEX 2 MG GUM BUC PRN ×2 (10:03→19:21)
[2021-03-15 10:26] LABS: CALCIUM 8.2 mg/dL (8.5-10.1)
[2021-03-15 10:27] LABS: ALBUMIN 2.8 g/dl (3.4-5.0); BLOOD UREA NITROGEN 11.1 mg/dL (7-18)
[2021-03-15 10:30] LABS: CREATININE 0.8 mg/dL (0.55-1.3)
[2021-03-15 10:31] LABS: BILIRUBIN,TOTAL 0.4 mg/dL (0.2-1); TOT PROT 6.4 g/dl (6.4-8.2)
[2021-03-15] MEDS: SERTRALINE HCL 50 MG TABLET (FP) PO SCH (11:25)
[2021-03-15] MEDS: diazePAM 5 MG TABLET PO PRN ×2 (13:53→19:20)
[2021-03-15] MEDS: GABAPENTIN 300 MG CAPSULE PO SCH ×2 (13:53→22:36)
[2021-03-15] MEDS: THIAMINE HCL 100 MG TABLET (FP) PO SCH (22:36)
[2021-03-15] MEDS: SUVOREXANT 10 MG TABLET PO PRN (22:37)
[2021-03-16] MEDS: diazePAM 5 MG TABLET PO PRN ×4 (02:38→20:33)
[2021-03-16] MEDS: GABAPENTIN 300 MG CAPSULE PO SCH ×3 (05:47→22:17)
[2021-03-16] MEDS: hydrOXYzine PAMOATE 25 MG CAPSULE (FP) PO SCH ×5 (05:47→22:17)
[2021-03-16] MEDS: diazePAM 5 MG TABLET PO SCH ×4 (05:47→22:45)
[2021-03-16] MEDS ORDERED: methaDONE HCL 10 MG TABLET (FOR DETOX USE ONLY) PO ONE (10:00)
[2021-03-16] MEDS: SERTRALINE HCL 50 MG TABLET (FP) PO SCH (10:37)
[2021-03-16] MEDS: PRENATAL VITAMINS W/ FOLIC ACID TABLET (FP) PO SCH (13:52)
[2021-03-16] MEDS: SUVOREXANT 10 MG TABLET PO PRN (22:16)
[2021-03-16] MEDS: THIAMINE HCL 100 MG TABLET (FP) PO SCH (22:17)
[2021-03-17] MEDS ORDERED: diazePAM 5 MG TABLET PO SCH (06:00)
[2021-03-17] MEDS: hydrOXYzine PAMOATE 25 MG CAPSULE (FP) PO SCH ×2 (06:08→10:42)
[2021-03-17] MEDS: GABAPENTIN 300 MG CAPSULE PO SCH (06:08)
[2021-03-17 06:32] VITALS: BP 103/57; PULSE 57; TEMP 97.7
[2021-03-17] MEDS ORDERED: methaDONE HCL 10 MG TABLET (FOR DETOX USE ONLY) ONE (09:29)
[2021-03-17] MEDS: SERTRALINE HCL 50 MG TABLET (FP) PO SCH (10:39)
[2021-03-17] MEDS: PRENATAL VITAMINS W/ FOLIC ACID TABLET (FP) PO SCH (10:39)
[2021-03-17] MEDS: diazePAM 5 MG TABLET PO PRN (10:41)
[2021-03-18] MEDS ORDERED: diazePAM 5 MG TABLET PO ONE (06:00)
[2021-03-18] MEDS ORDERED: methaDONE HCL 10 MG TABLET (FOR DETOX USE ONLY) PO ONE (10:00)
== END 2021-03-17 11:48 | disposition left against medical advice (07) | DRG 770 ==
LOC: YASAS 14:23 → Y6N 17:32
PROVIDERS: ADMIT Allergy & Immunology; ATTEND Allergy & Immunology
PROC: HZ2ZZZZ Detoxification Services for Substance Abuse Treatment (ICD-10-PCS; principal; 2021-03-14)
DX: F10.230 Alcohol dependence with withdrawal, uncomplicated (principal); F11.23 Opioid dependence with withdrawal; F13.230 Sedative, hypnotic or anxiolytic dependence with withdrawal, uncomplicated; F14.20 Cocaine dependence, uncomplicated; F17.210 Nicotine dependence, cigarettes, uncomplicated; F19.280 Other psychoactive substance dependence with psychoactive substance-induced anxiety disorder; F19.282 Other psychoactive substance dependence with psychoactive substance-induced sleep disorder; D64.9 Anemia, unspecified; E78.5 Hyperlipidemia, unspecified; B18.2 Chronic viral hepatitis C; Z56.0 Unemployment, unspecified; Z59.01 Sheltered homelessness; Z88.2 Allergy status to sulfonamides
CPT/HCPCS: 36415; 80053; 85027; 86780; C9803; J0735; Q0162; U0003; U0005

== ENCOUNTER 2021-04-03 14:26 | Inpatient (IN) | payer OTHER ==
[2021-04-03 15:53] VITALS: BMI 29.7
[2021-04-03] MEDS ORDERED: ONDANSETRON *ODT* 4 MG TABLET SL PRN (16:19)
[2021-04-03] MEDS ORDERED: BISMUTH SUBSALICYLATE 524 MG/30 ML PO PRN (16:19)
[2021-04-03] MEDS ORDERED: MAGNESIUM HYDROX 2400MG/30ML ORAL SUSPENSION 30 ML CUP PO PRN (16:19)
[2021-04-03] MEDS ORDERED: MAGNESIUM CITRATE 300 ML BOTTLE PO PRN (16:19)
[2021-04-03] MEDS ORDERED: ACETAMINOPHEN 325 MG TABLET (FP) PO PRN (16:19)
[2021-04-03] MEDS ORDERED: MAG HYDROX/AL HYDROX/SIMETH 30 ML UNIT-DOSE CUP PO PRN (16:19)
[2021-04-03] MEDS ORDERED: MENTHOL/PHENOL 1 EACH UD MM PRN (16:19)
[2021-04-03] MEDS ORDERED: METHOCARBAMOL 500 MG TABLET PO PRN (16:19)
[2021-04-03] MEDS ORDERED: NICOTINE 10 MG CARTRIDGE (INHALER) IH PRN (16:19)
[2021-04-03] MEDS ORDERED: LACTULOSE 20 GM/30 ML UDC (FOR ORAL USE ONLY) PO PRN (16:31)
[2021-04-03] MEDS: IBUPROFEN 400 MG TABLET (FP) PO PRN (17:45)
[2021-04-03] MEDS: hydrOXYzine PAMOATE 25 MG CAPSULE (FP) PO SCH ×2 (17:46→22:26)
[2021-04-03] MEDS: LORazepam 2 MG TABLET PO SCH ×2 (17:46→22:26)
[2021-04-03] MEDS: NICOTINE POLACRILEX 2 MG GUM BUC PRN ×2 (17:49→22:27)
[2021-04-03] MEDS: GABAPENTIN 300 MG CAPSULE PO SCH (22:26)
[2021-04-03] MEDS: MELATONIN 5 MG TABLETS PO SCH (22:26)
[2021-04-03] MEDS: THIAMINE HCL 100 MG TABLET (FP) PO SCH (22:26)
[2021-04-04] MEDS: GABAPENTIN 300 MG CAPSULE PO SCH ×3 (06:04→22:04)
[2021-04-04] MEDS: hydrOXYzine PAMOATE 25 MG CAPSULE (FP) PO SCH ×5 (06:04→22:04)
[2021-04-04] MEDS: LORazepam 2 MG TABLET PO SCH ×4 (06:04→22:05)
[2021-04-04] MEDS: LORazepam 1 MG TABLET PO PRN ×2 (08:37→15:01)
[2021-04-04] MEDS ORDERED: methaDONE HCL 10 MG TABLET PO SCH (09:00)
[2021-04-04] MEDS ORDERED: methaDONE HCL 10 MG TABLET ONE (10:00)
[2021-04-04] MEDS ORDERED: methaDONE HCL 40 MG DISPERSABLE TABLET ONE (10:01)
[2021-04-04] MEDS: ACETAMINOPHEN 325 MG TABLET (FP) PO PRN ×2 (10:09→22:05)
[2021-04-04] MEDS: methaDONE 40 MG, methaDONE 20 MG PO SCH (10:10)
[2021-04-04] MEDS: PRENATAL VITAMINS W/ FOLIC ACID TABLET (FP) PO SCH (10:10)
[2021-04-04 11:10] LABS: ALBUMIN 3.1 g/dl (3.4-5.0)
[2021-04-04 11:11] LABS: BLOOD UREA NITROGEN 9.2 mg/dL (7-18); CALCIUM 9.2 mg/dL (8.5-10.1)
[2021-04-04 11:12] LABS: BILIRUBIN,TOTAL 0.2 mg/dL (0.2-1); TOT PROT 7.5 g/dl (6.4-8.2)
[2021-04-04 11:14] LABS: CREATININE 0.8 mg/dL (0.55-1.3)
[2021-04-04 11:15] LABS: HEMATOCRIT 37.1 % (35.4-49); HEMOGLOBIN 12.7 GM/dL (11.7-16.9); MCH 28.7 pg (25.7-33.7); MCHC 34.3 g/dl (32.0-35.9); MEAN CELL VOLUME 83.7 fl (80-96); PLATELET COUNT 283 10^3/uL (134-434); RBC 4.44 M/mm3 (4.00-5.60); RDW 14.7 % (11.9-15.9); WHITE BLOOD COUNT 4.6 K/mm3 (4.0-10.0)
[2021-04-04] MEDS: BENZOCAINE 20 % GEL TUBE MM PRN ×2 (12:40→18:36)
[2021-04-04] MEDS ORDERED: MASKS NR ONE (17:08)
[2021-04-04] MEDS: THIAMINE HCL 100 MG TABLET (FP) PO SCH (22:04)
[2021-04-04] MEDS: MELATONIN 5 MG TABLETS PO SCH (22:04)
[2021-04-04] MEDS: SUVOREXANT 10 MG TABLET PO PRN (22:08)
[2021-04-05] MEDS ORDERED: methaDONE HCL 40 MG DISPERSABLE TABLET ONE (04:08)
[2021-04-05] MEDS ORDERED: methaDONE HCL 10 MG TABLET ONE (04:08)
[2021-04-05] MEDS: methaDONE 40 MG, methaDONE 20 MG PO SCH (05:42)
[2021-04-05] MEDS: GABAPENTIN 300 MG CAPSULE PO SCH ×3 (05:43→22:04)
[2021-04-05] MEDS: hydrOXYzine PAMOATE 25 MG CAPSULE (FP) PO SCH ×2 (05:43→10:35)
[2021-04-05] MEDS: LORazepam 1 MG TABLET PO SCH ×4 (05:43→22:10)
[2021-04-05] MEDS: BENZOCAINE 20 % GEL TUBE MM PRN ×2 (05:45→22:05)
[2021-04-05] MEDS: ACETAMINOPHEN 325 MG TABLET (FP) PO PRN (08:40)
[2021-04-05] MEDS: LORazepam 1 MG TABLET PO PRN ×2 (08:41→15:44)
[2021-04-05] MEDS: PRENATAL VITAMINS W/ FOLIC ACID TABLET (FP) PO SCH (10:35)
[2021-04-05] MEDS ORDERED: hydrOXYzine PAMOATE 25 MG CAPSULE (FP) PO PRN (11:46)
[2021-04-05] MEDS: NICOTINE POLACRILEX 2 MG GUM BUC PRN (15:45)
[2021-04-05] MEDS: SUVOREXANT 10 MG TABLET PO PRN (22:04)
[2021-04-05] MEDS: THIAMINE HCL 100 MG TABLET (FP) PO SCH (22:05)
[2021-04-05] MEDS: MELATONIN 5 MG TABLETS PO SCH (22:05)
[2021-04-06] MEDS ORDERED: methaDONE HCL 40 MG DISPERSABLE TABLET ONE (04:56)
[2021-04-06] MEDS ORDERED: methaDONE HCL 10 MG TABLET ONE (04:56)
[2021-04-06] MEDS: GABAPENTIN 300 MG CAPSULE PO SCH ×3 (05:25→22:03)
[2021-04-06] MEDS: LORazepam 0.5 MG TABLET PO SCH ×4 (05:25→22:03)
[2021-04-06] MEDS: methaDONE 40 MG, methaDONE 20 MG PO SCH (05:26)
[2021-04-06] MEDS: LORazepam 0.5 MG TABLET PO PRN ×2 (08:33→12:58)
[2021-04-06] MEDS: PRENATAL VITAMINS W/ FOLIC ACID TABLET (FP) PO SCH (10:21)
[2021-04-06] MEDS: BENZOCAINE 20 % GEL TUBE MM PRN (20:55)
[2021-04-06] MEDS: MELATONIN 5 MG TABLETS PO SCH (22:03)
[2021-04-06] MEDS: THIAMINE HCL 100 MG TABLET (FP) PO SCH (22:03)
[2021-04-06] MEDS: ACETAMINOPHEN 325 MG TABLET (FP) PO PRN (22:04)
[2021-04-06] MEDS: SUVOREXANT 10 MG TABLET PO PRN (22:05)
[2021-04-07] MEDS ORDERED: methaDONE HCL 40 MG DISPERSABLE TABLET ONE (04:32)
[2021-04-07] MEDS ORDERED: methaDONE HCL 10 MG TABLET ONE (04:32)
[2021-04-07] MEDS ORDERED: LORazepam 0.5 MG TABLET PO ONE (05:00)
[2021-04-07] MEDS: methaDONE 40 MG, methaDONE 20 MG PO SCH (05:55)
[2021-04-07] MEDS: GABAPENTIN 300 MG CAPSULE PO SCH ×3 (05:56→22:05)
[2021-04-07] MEDS: NICOTINE POLACRILEX 2 MG GUM BUC PRN (08:16)
[2021-04-07] MEDS: BENZOCAINE 20 % GEL TUBE MM PRN ×2 (09:54→18:48)
[2021-04-07] MEDS: ACETAMINOPHEN 325 MG TABLET (FP) PO PRN (09:54)
[2021-04-07] MEDS: PRENATAL VITAMINS W/ FOLIC ACID TABLET (FP) PO SCH (09:55)
[2021-04-07] MEDS: MELATONIN 5 MG TABLETS PO SCH (22:05)
[2021-04-07] MEDS: THIAMINE HCL 100 MG TABLET (FP) PO SCH (22:05)
[2021-04-08] MEDS ORDERED: methaDONE HCL 10 MG TABLET ONE (04:24)
[2021-04-08] MEDS ORDERED: methaDONE HCL 40 MG DISPERSABLE TABLET ONE (04:24)
[2021-04-08] MEDS: methaDONE 40 MG, methaDONE 20 MG PO SCH (05:45)
[2021-04-08] MEDS: GABAPENTIN 300 MG CAPSULE PO SCH (05:45)
[2021-04-08 09:04] VITALS: BP 110/71; PULSE 82; TEMP 97.3
[2021-04-08] MEDS: IBUPROFEN 400 MG TABLET (FP) PO PRN (10:14)
[2021-04-08] MEDS: PRENATAL VITAMINS W/ FOLIC ACID TABLET (FP) PO SCH (10:42)
== END 2021-04-08 11:25 | disposition home or self-care (01) | DRG 773 ==
LOC: YASAS 14:26 → Y3N 16:38
PROVIDERS: ADMIT Allergy & Immunology; ATTEND Allergy & Immunology
PROC: HZ2ZZZZ Detoxification Services for Substance Abuse Treatment (ICD-10-PCS; principal; 2021-04-03)
DX: F13.230 Sedative, hypnotic or anxiolytic dependence with withdrawal, uncomplicated (principal); F11.20 Opioid dependence, uncomplicated; F10.20 Alcohol dependence, uncomplicated; F17.210 Nicotine dependence, cigarettes, uncomplicated; F19.280 Other psychoactive substance dependence with psychoactive substance-induced anxiety disorder; F19.282 Other psychoactive substance dependence with psychoactive substance-induced sleep disorder; E88.09 Other disorders of plasma-protein metabolism, not elsewhere classified; E87.1 Hypo-osmolality and hyponatremia; E78.5 Hyperlipidemia, unspecified; K58.9 Irritable bowel syndrome, unspecified; B18.2 Chronic viral hepatitis C; Z88.2 Allergy status to sulfonamides; Z59.01 Sheltered homelessness
CPT/HCPCS: 36415; 80053; 85027; 86780; 93005; 93010; C9803; U0003; U0005

== ENCOUNTER 2021-06-04 12:40 | Inpatient (IN) | payer OTHER ==
[2021-06-04] MEDS ORDERED: ACETAMINOPHEN 325 MG TABLET (FP) PO PRN (13:17)
[2021-06-04] MEDS ORDERED: MAGNESIUM CITRATE 300 ML BOTTLE PO PRN (13:17)
[2021-06-04] MEDS ORDERED: LORazepam 1 MG TABLET PO PRN (13:17)
[2021-06-04] MEDS ORDERED: MAGNESIUM HYDROX 2400MG/30ML ORAL SUSPENSION 30 ML CUP PO PRN (13:17)
[2021-06-04] MEDS ORDERED: MAG HYDROX/AL HYDROX/SIMETH 30 ML UNIT-DOSE CUP PO PRN (13:17)
[2021-06-04] MEDS ORDERED: ONDANSETRON *ODT* 4 MG TABLET SL PRN (13:17)
[2021-06-04] MEDS ORDERED: MENTHOL/PHENOL 1 EACH UD MM PRN (13:17)
[2021-06-04] MEDS ORDERED: BISMUTH SUBSALICYLATE 524 MG/30 ML PO PRN (13:17)
[2021-06-04] MEDS ORDERED: NICOTINE 10 MG CARTRIDGE (INHALER) IH PRN (13:17)
[2021-06-04 13:59] VITALS: BMI 29.0
[2021-06-04] MEDS: ACETAMINOPHEN 325 MG TABLET (FP) PO PRN (15:40)
[2021-06-04] MEDS: hydrOXYzine PAMOATE 25 MG CAPSULE (FP) PO SCH ×2 (15:45→17:33)
[2021-06-04] MEDS: PRENATAL VITAMINS W/ FOLIC ACID TABLET (FP) PO SCH (15:46)
[2021-06-04 17:05] LABS: HEMATOCRIT 33.6 % (35.4-49); HEMOGLOBIN 11.7 GM/dL (11.7-16.9); MCH 28.8 pg (25.7-33.7); MCHC 34.8 g/dl (32.0-35.9); MEAN CELL VOLUME 82.9 fl (80-96); MEAN PLT VOLUME 7.6 fl (7.5-11.1); PLATELET COUNT 325 10^3/uL (134-434); RBC 4.05 M/mm3 (4.00-5.60); RDW 13.7 % (11.9-15.9); WHITE BLOOD COUNT 5.2 K/mm3 (4.0-10.0)
[2021-06-04 17:18] LABS: CALCIUM 9.4 mg/dL (8.5-10.1)
[2021-06-04 17:19] LABS: ALBUMIN 3.5 g/dl (3.4-5.0); BLOOD UREA NITROGEN 9.3 mg/dL (7-18)
[2021-06-04 17:22] LABS: CREATININE 0.9 mg/dL (0.55-1.3)
[2021-06-04 17:23] LABS: BILIRUBIN,TOTAL 0.4 mg/dL (0.2-1); TOT PROT 7.5 g/dl (6.4-8.2)
[2021-06-04] MEDS: DOXYCYCLINE HYCLATE 100 MG TABLET PO SCH (17:33)
[2021-06-04] MEDS: LORazepam 2 MG TABLET PO SCH (17:33)
[2021-06-04] MEDS: METHOCARBAMOL 500 MG TABLET PO PRN (17:33)
[2021-06-04] MEDS: NICOTINE POLACRILEX 4 MG GUM BUC PRN (17:37)
[2021-06-05] MEDS: DOCUSATE SODIUM 100 MG CAPSULE (FP) PO SCH ×4 (00:10→22:57)
[2021-06-05] MEDS: BACITRACIN 0.9 GM PACKET TP SCH ×3 (00:10→22:56)
[2021-06-05] MEDS: THIAMINE HCL 100 MG TABLET (FP) PO SCH ×2 (00:10→22:57)
[2021-06-05] MEDS: LORazepam 2 MG TABLET PO SCH ×5 (00:10→22:56)
[2021-06-05] MEDS: MELATONIN 5 MG TABLETS PO SCH ×2 (00:10→22:57)
[2021-06-05] MEDS: hydrOXYzine PAMOATE 25 MG CAPSULE (FP) PO SCH ×6 (00:10→22:57)
[2021-06-05] MEDS: METHOCARBAMOL 500 MG TABLET PO PRN ×2 (06:38→18:13)
[2021-06-05] MEDS: IBUPROFEN 400 MG TABLET (FP) PO PRN ×2 (06:38→18:13)
[2021-06-05] MEDS ORDERED: methaDONE HCL 40 MG DISPERSABLE TABLET PO SCH (09:30)
[2021-06-05] MEDS ORDERED: methaDONE HCL 10 MG TABLET ONE (09:48)
[2021-06-05] MEDS ORDERED: methaDONE HCL 40 MG DISPERSABLE TABLET ONE (09:49)
[2021-06-05] MEDS: DOXYCYCLINE HYCLATE 100 MG TABLET PO SCH ×2 (10:17→18:11)
[2021-06-05] MEDS: methaDONE 40 MG, methaDONE 30 MG PO SCH (10:17)
[2021-06-05] MEDS: PRENATAL VITAMINS W/ FOLIC ACID TABLET (FP) PO SCH (10:17)
[2021-06-06] MEDS ORDERED: methaDONE HCL 10 MG TABLET ONE (04:12)
[2021-06-06] MEDS ORDERED: methaDONE HCL 40 MG DISPERSABLE TABLET ONE (04:13)
[2021-06-06] MEDS: methaDONE 40 MG, methaDONE 30 MG PO SCH (05:30)
[2021-06-06] MEDS: DOCUSATE SODIUM 100 MG CAPSULE (FP) PO SCH ×3 (05:31→22:44)
[2021-06-06] MEDS: hydrOXYzine PAMOATE 25 MG CAPSULE (FP) PO SCH ×5 (05:31→22:44)
[2021-06-06] MEDS: LORazepam 1 MG TABLET PO SCH ×4 (05:31→22:43)
[2021-06-06] MEDS: ACETAMINOPHEN 325 MG TABLET (FP) PO PRN (05:32)
[2021-06-06] MEDS: DOXYCYCLINE HYCLATE 100 MG TABLET PO SCH ×2 (10:14→18:18)
[2021-06-06] MEDS: PRENATAL VITAMINS W/ FOLIC ACID TABLET (FP) PO SCH (10:14)
[2021-06-06] MEDS: BACITRACIN 0.9 GM PACKET TP SCH ×2 (10:14→22:44)
[2021-06-06] MEDS: MELATONIN 5 MG TABLETS PO SCH (22:44)
[2021-06-06] MEDS: THIAMINE HCL 100 MG TABLET (FP) PO SCH (22:45)
[2021-06-07] MEDS ORDERED: LORazepam 0.5 MG TABLET PO PRN
[2021-06-07] MEDS ORDERED: methaDONE HCL 40 MG DISPERSABLE TABLET ONE (04:14)
[2021-06-07] MEDS ORDERED: methaDONE HCL 10 MG TABLET ONE (04:14)
[2021-06-07] MEDS: LORazepam 0.5 MG TABLET PO SCH ×4 (05:46→22:52)
[2021-06-07] MEDS: methaDONE 40 MG, methaDONE 30 MG PO SCH (05:46)
[2021-06-07] MEDS: DOCUSATE SODIUM 100 MG CAPSULE (FP) PO SCH ×3 (05:46→22:53)
[2021-06-07] MEDS: hydrOXYzine PAMOATE 25 MG CAPSULE (FP) PO SCH ×5 (05:46→22:53)
[2021-06-07] MEDS: DOXYCYCLINE HYCLATE 100 MG TABLET PO SCH ×2 (10:13→18:36)
[2021-06-07] MEDS: PRENATAL VITAMINS W/ FOLIC ACID TABLET (FP) PO SCH (10:13)
[2021-06-07] MEDS: BACITRACIN 0.9 GM PACKET TP SCH ×2 (10:14→22:53)
[2021-06-07] MEDS: ACETAMINOPHEN 325 MG TABLET (FP) PO PRN (18:36)
[2021-06-07] MEDS: THIAMINE HCL 100 MG TABLET (FP) PO SCH (22:53)
[2021-06-07] MEDS: MELATONIN 5 MG TABLETS PO SCH (22:53)
[2021-06-08] MEDS ORDERED: methaDONE HCL 40 MG DISPERSABLE TABLET ONE (04:22)
[2021-06-08] MEDS ORDERED: methaDONE HCL 10 MG TABLET ONE (04:22)
[2021-06-08] MEDS ORDERED: LORazepam 0.5 MG TABLET PO ONE (05:00)
[2021-06-08] MEDS: DOCUSATE SODIUM 100 MG CAPSULE (FP) PO SCH ×3 (05:25→21:50)
[2021-06-08] MEDS: hydrOXYzine PAMOATE 25 MG CAPSULE (FP) PO SCH ×5 (05:26→21:50)
[2021-06-08] MEDS: methaDONE 40 MG, methaDONE 30 MG PO SCH (05:26)
[2021-06-08] MEDS: PRENATAL VITAMINS W/ FOLIC ACID TABLET (FP) PO SCH (10:12)
[2021-06-08] MEDS: DOXYCYCLINE HYCLATE 100 MG TABLET PO SCH ×2 (10:12→18:36)
[2021-06-08] MEDS: BACITRACIN 0.9 GM PACKET TP SCH ×2 (10:12→21:50)
[2021-06-08] MEDS: METHOCARBAMOL 500 MG TABLET PO PRN (10:13)
[2021-06-08] MEDS: NICOTINE POLACRILEX 4 MG GUM BUC PRN (10:14)
[2021-06-08] MEDS: THIAMINE HCL 100 MG TABLET (FP) PO SCH (21:50)
[2021-06-08] MEDS: MELATONIN 5 MG TABLETS PO SCH (21:50)
[2021-06-09] MEDS ORDERED: methaDONE HCL 10 MG TABLET ONE (04:04)
[2021-06-09] MEDS ORDERED: methaDONE HCL 40 MG DISPERSABLE TABLET ONE (04:05)
[2021-06-09] MEDS: DOCUSATE SODIUM 100 MG CAPSULE (FP) PO SCH (05:07)
[2021-06-09] MEDS: hydrOXYzine PAMOATE 25 MG CAPSULE (FP) PO SCH ×2 (05:07→11:02)
[2021-06-09] MEDS: methaDONE 40 MG, methaDONE 30 MG PO SCH (05:07)
[2021-06-09] MEDS ORDERED: LORazepam 0.5 MG TABLET PO ONE (06:00)
[2021-06-09] MEDS: DOXYCYCLINE HYCLATE 100 MG TABLET PO SCH (11:02)
[2021-06-09] MEDS: PRENATAL VITAMINS W/ FOLIC ACID TABLET (FP) PO SCH (11:02)
[2021-06-09] MEDS: BACITRACIN 0.9 GM PACKET TP SCH (11:02)
[2021-06-09 13:20] VITALS: BP 116/73; PULSE 64; TEMP 98.3
== END 2021-06-09 14:16 | disposition other institution (70) | DRG 773 ==
LOC: YASAS 12:40 → Y3N 15:03
PROVIDERS: ADMIT Allergy & Immunology; ATTEND Allergy & Immunology
PROC: HZ2ZZZZ Detoxification Services for Substance Abuse Treatment (ICD-10-PCS; principal; 2021-06-04)
DX: F10.230 Alcohol dependence with withdrawal, uncomplicated (principal); F11.20 Opioid dependence, uncomplicated; F13.230 Sedative, hypnotic or anxiolytic dependence with withdrawal, uncomplicated; F17.210 Nicotine dependence, cigarettes, uncomplicated; F41.9 Anxiety disorder, unspecified; F32.A Depression, unspecified; F19.282 Other psychoactive substance dependence with psychoactive substance-induced sleep disorder; F19.280 Other psychoactive substance dependence with psychoactive substance-induced anxiety disorder; E78.5 Hyperlipidemia, unspecified; B18.2 Chronic viral hepatitis C; D64.9 Anemia, unspecified; R00.0 Tachycardia, unspecified; K58.9 Irritable bowel syndrome, unspecified; Z88.1 Allergy status to other antibiotic agents; Z88.2 Allergy status to sulfonamides; Z86.69 Personal history of other diseases of the nervous system and sense organs; Z59.02 Unsheltered homelessness
CPT/HCPCS: 36415; 80053; 85027; 86780; C9803; U0003; U0005

== ENCOUNTER 2021-06-09 14:48 | Inpatient (IN) | payer OTHER ==
[2021-06-09] MEDS ORDERED: MAG HYDROX/AL HYDROX/SIMETH 30 ML UNIT-DOSE CUP PO PRN (18:43)
[2021-06-09] MEDS ORDERED: guaiFENesin 200 MG/10 ML 10 ML UNIT-DOSE CUPS PO PRN (18:43)
[2021-06-09] MEDS ORDERED: LOPERAMIDE HCL 2 MG CAPSULE PO PRN (18:43)
[2021-06-09] MEDS ORDERED: MAGNESIUM CITRATE 300 ML BOTTLE PO PRN (18:43)
[2021-06-09] MEDS ORDERED: NICOTINE 10 MG CARTRIDGE (INHALER) IH PRN (18:43)
[2021-06-09] MEDS ORDERED: P-EPHED 60MG/TRIPROLIDI 2.5MG TABLET PO PRN (18:43)
[2021-06-09] MEDS ORDERED: MENTHOL/PHENOL 1 EACH UD MM PRN (18:43)
[2021-06-09] MEDS: NICOTINE POLACRILEX 4 MG GUM BUC PRN (19:35)
[2021-06-09] MEDS: DOCUSATE SODIUM 100 MG CAPSULE (FP) PO SCH (21:36)
[2021-06-09] MEDS: GABAPENTIN 300 MG CAPSULE PO SCH (21:36)
[2021-06-09] MEDS: THIAMINE HCL 100 MG TABLET (FP) PO SCH (21:36)
[2021-06-09] MEDS: MELATONIN 5 MG TABLETS PO PRN (21:36)
[2021-06-09] MEDS ORDERED: MELATONIN 5 MG TABLETS PO SCH (22:00)
[2021-06-10] MEDS ORDERED: methaDONE HCL 10 MG TABLET ONE (06:15)
[2021-06-10] MEDS ORDERED: methaDONE HCL 40 MG DISPERSABLE TABLET ONE (06:16)
[2021-06-10] MEDS: methaDONE 40 MG, methaDONE 30 MG PO SCH (06:17)
[2021-06-10] MEDS: GABAPENTIN 300 MG CAPSULE PO SCH ×3 (06:18→21:24)
[2021-06-10] MEDS ORDERED: methaDONE HCL 40 MG DISPERSABLE TABLET PO SCH (10:00)
[2021-06-10] MEDS: PRENATAL VITAMINS W/ FOLIC ACID TABLET (FP) PO SCH (10:04)
[2021-06-10] MEDS: DOCUSATE SODIUM 100 MG CAPSULE (FP) PO SCH ×2 (10:06→21:24)
[2021-06-10] MEDS: ACETAMINOPHEN 325 MG TABLET (FP) PO PRN ×2 (10:06→21:24)
[2021-06-10] MEDS: NICOTINE POLACRILEX 4 MG GUM BUC PRN ×3 (10:07→20:02)
[2021-06-10] MEDS: MAGNESIUM HYDROX 2400MG/30ML ORAL SUSPENSION 30 ML CUP PO PRN (16:48)
[2021-06-10] MEDS: THIAMINE HCL 100 MG TABLET (FP) PO SCH (21:24)
[2021-06-11] MEDS ORDERED: methaDONE HCL 40 MG DISPERSABLE TABLET ONE (06:05)
[2021-06-11] MEDS ORDERED: methaDONE HCL 10 MG TABLET ONE (06:05)
[2021-06-11] MEDS: methaDONE 40 MG, methaDONE 30 MG PO SCH (06:06)
[2021-06-11] MEDS: NICOTINE POLACRILEX 4 MG GUM BUC PRN ×3 (06:06→15:47)
[2021-06-11] MEDS: GABAPENTIN 300 MG CAPSULE PO SCH ×3 (06:06→21:27)
[2021-06-11] MEDS: PRENATAL VITAMINS W/ FOLIC ACID TABLET (FP) PO SCH (10:00)
[2021-06-11] MEDS: ACETAMINOPHEN 325 MG TABLET (FP) PO PRN ×2 (10:01→21:26)
[2021-06-11] MEDS: DOCUSATE SODIUM 100 MG CAPSULE (FP) PO SCH ×2 (10:52→21:27)
[2021-06-11] MEDS: THIAMINE HCL 100 MG TABLET (FP) PO SCH (21:27)
[2021-06-12] MEDS ORDERED: methaDONE HCL 40 MG DISPERSABLE TABLET ONE (05:46)
[2021-06-12] MEDS ORDERED: methaDONE HCL 10 MG TABLET ONE (05:46)
[2021-06-12] MEDS: GABAPENTIN 300 MG CAPSULE PO SCH ×3 (06:02→21:31)
[2021-06-12] MEDS: methaDONE 40 MG, methaDONE 30 MG PO SCH (06:03)
[2021-06-12] MEDS: NICOTINE POLACRILEX 4 MG GUM BUC PRN ×3 (07:20→21:32)
[2021-06-12] MEDS: ACETAMINOPHEN 325 MG TABLET (FP) PO PRN ×2 (10:02→21:32)
[2021-06-12] MEDS: DOCUSATE SODIUM 100 MG CAPSULE (FP) PO SCH ×2 (10:02→21:31)
[2021-06-12] MEDS: PRENATAL VITAMINS W/ FOLIC ACID TABLET (FP) PO SCH (10:03)
[2021-06-12] MEDS: MAGNESIUM HYDROX 2400MG/30ML ORAL SUSPENSION 30 ML CUP PO PRN (13:16)
[2021-06-12] MEDS: THIAMINE HCL 100 MG TABLET (FP) PO SCH (21:31)
[2021-06-12] MEDS: MELATONIN 5 MG TABLETS PO PRN (21:31)
[2021-06-13] MEDS ORDERED: methaDONE HCL 40 MG DISPERSABLE TABLET ONE (04:15)
[2021-06-13] MEDS ORDERED: methaDONE HCL 10 MG TABLET ONE (04:15)
[2021-06-13] MEDS: ACETAMINOPHEN 325 MG TABLET (FP) PO PRN ×2 (06:17→21:27)
[2021-06-13] MEDS: methaDONE 40 MG, methaDONE 30 MG PO SCH (06:17)
[2021-06-13] MEDS: GABAPENTIN 300 MG CAPSULE PO SCH ×3 (06:17→21:27)
[2021-06-13] MEDS: MAGNESIUM HYDROX 2400MG/30ML ORAL SUSPENSION 30 ML CUP PO PRN (10:22)
[2021-06-13] MEDS: PRENATAL VITAMINS W/ FOLIC ACID TABLET (FP) PO SCH (10:23)
[2021-06-13] MEDS: DOCUSATE SODIUM 100 MG CAPSULE (FP) PO SCH ×2 (10:23→21:27)
[2021-06-13] MEDS: NICOTINE POLACRILEX 4 MG GUM BUC PRN ×2 (10:25→21:29)
[2021-06-13] MEDS: THIAMINE HCL 100 MG TABLET (FP) PO SCH (21:27)
[2021-06-14] MEDS ORDERED: methaDONE HCL 10 MG TABLET ONE (03:45)
[2021-06-14] MEDS ORDERED: methaDONE HCL 40 MG DISPERSABLE TABLET ONE (03:45)
[2021-06-14] MEDS: ACETAMINOPHEN 325 MG TABLET (FP) PO PRN ×2 (06:02→21:05)
[2021-06-14] MEDS: NICOTINE POLACRILEX 4 MG GUM BUC PRN ×4 (06:03→21:03)
[2021-06-14] MEDS: methaDONE 40 MG, methaDONE 30 MG PO SCH (06:03)
[2021-06-14] MEDS: GABAPENTIN 300 MG CAPSULE PO SCH ×3 (06:03→21:06)
[2021-06-14] MEDS: DOCUSATE SODIUM 100 MG CAPSULE (FP) PO SCH ×2 (09:56→21:05)
[2021-06-14] MEDS: PRENATAL VITAMINS W/ FOLIC ACID TABLET (FP) PO SCH (09:57)
[2021-06-14] MEDS: IBUPROFEN 400 MG TABLET (FP) PO PRN (09:58)
[2021-06-14] MEDS: MAGNESIUM HYDROX 2400MG/30ML ORAL SUSPENSION 30 ML CUP PO PRN (11:45)
[2021-06-14] MEDS: THIAMINE HCL 100 MG TABLET (FP) PO SCH (21:05)
[2021-06-14] MEDS: MELATONIN 5 MG TABLETS PO PRN (21:06)
[2021-06-15] MEDS ORDERED: methaDONE HCL 40 MG DISPERSABLE TABLET ONE (04:00)
[2021-06-15] MEDS ORDERED: methaDONE HCL 10 MG TABLET ONE (04:00)
[2021-06-15] MEDS: GABAPENTIN 300 MG CAPSULE PO SCH ×3 (06:05→21:36)
[2021-06-15] MEDS: ACETAMINOPHEN 325 MG TABLET (FP) PO PRN ×2 (06:05→18:47)
[2021-06-15] MEDS: methaDONE 40 MG, methaDONE 30 MG PO SCH (06:05)
[2021-06-15] MEDS: NICOTINE POLACRILEX 4 MG GUM BUC PRN ×4 (06:09→18:49)
[2021-06-15] MEDS: PRENATAL VITAMINS W/ FOLIC ACID TABLET (FP) PO SCH (09:57)
[2021-06-15] MEDS: DOCUSATE SODIUM 100 MG CAPSULE (FP) PO SCH ×2 (09:57→21:36)
[2021-06-15] MEDS: IBUPROFEN 400 MG TABLET (FP) PO PRN ×2 (09:58→21:37)
[2021-06-15] MEDS: MELATONIN 5 MG TABLETS PO PRN (21:36)
[2021-06-15] MEDS: THIAMINE HCL 100 MG TABLET (FP) PO SCH (21:36)
[2021-06-15] MEDS: hydrOXYzine PAMOATE 25 MG CAPSULE (FP) PO PRN (21:38)
[2021-06-16] MEDS ORDERED: methaDONE HCL 10 MG TABLET ONE (03:21)
[2021-06-16] MEDS ORDERED: methaDONE HCL 40 MG DISPERSABLE TABLET ONE (03:21)
[2021-06-16] MEDS: methaDONE 40 MG, methaDONE 30 MG PO SCH (06:06)
[2021-06-16] MEDS: ACETAMINOPHEN 325 MG TABLET (FP) PO PRN ×2 (06:06→13:53)
[2021-06-16] MEDS: GABAPENTIN 300 MG CAPSULE PO SCH ×3 (06:08→21:25)
[2021-06-16] MEDS: PRENATAL VITAMINS W/ FOLIC ACID TABLET (FP) PO SCH (09:53)
[2021-06-16] MEDS: DOCUSATE SODIUM 100 MG CAPSULE (FP) PO SCH ×2 (09:53→21:25)
[2021-06-16] MEDS: NICOTINE POLACRILEX 4 MG GUM BUC PRN (09:54)
[2021-06-16] MEDS: MAGNESIUM HYDROX 2400MG/30ML ORAL SUSPENSION 30 ML CUP PO PRN (18:07)
[2021-06-16] MEDS: MELATONIN 5 MG TABLETS PO PRN (21:25)
[2021-06-16] MEDS: THIAMINE HCL 100 MG TABLET (FP) PO SCH (21:25)
[2021-06-16] MEDS: hydrOXYzine PAMOATE 25 MG CAPSULE (FP) PO PRN (21:25)
[2021-06-17] MEDS ORDERED: methaDONE HCL 10 MG TABLET ONE (06:06)
[2021-06-17] MEDS ORDERED: methaDONE HCL 40 MG DISPERSABLE TABLET ONE (06:06)
[2021-06-17] MEDS: ACETAMINOPHEN 325 MG TABLET (FP) PO PRN ×2 (06:08→12:45)
[2021-06-17] MEDS: methaDONE 40 MG, methaDONE 30 MG PO SCH (06:08)
[2021-06-17] MEDS: GABAPENTIN 300 MG CAPSULE PO SCH ×3 (06:08→21:22)
[2021-06-17] MEDS: PRENATAL VITAMINS W/ FOLIC ACID TABLET (FP) PO SCH (09:26)
[2021-06-17] MEDS: DOCUSATE SODIUM 100 MG CAPSULE (FP) PO SCH ×2 (09:26→21:22)
[2021-06-17] MEDS: NICOTINE POLACRILEX 4 MG GUM BUC PRN ×4 (09:27→21:25)
[2021-06-17] MEDS: THIAMINE HCL 100 MG TABLET (FP) PO SCH (21:22)
[2021-06-17] MEDS: IBUPROFEN 400 MG TABLET (FP) PO PRN (21:22)
[2021-06-17] MEDS: hydrOXYzine PAMOATE 25 MG CAPSULE (FP) PO PRN (21:22)
[2021-06-17] MEDS: MELATONIN 5 MG TABLETS PO PRN (21:24)
[2021-06-18] MEDS ORDERED: methaDONE HCL 40 MG DISPERSABLE TABLET ONE (03:03)
[2021-06-18] MEDS ORDERED: methaDONE HCL 10 MG TABLET ONE (03:03)
[2021-06-18] MEDS: hydrOXYzine PAMOATE 25 MG CAPSULE (FP) PO PRN ×2 (06:01→21:20)
[2021-06-18] MEDS: GABAPENTIN 300 MG CAPSULE PO SCH ×3 (06:01→21:20)
[2021-06-18] MEDS: methaDONE 40 MG, methaDONE 30 MG PO SCH (06:01)
[2021-06-18] MEDS: NICOTINE POLACRILEX 4 MG GUM BUC PRN ×3 (10:04→21:23)
[2021-06-18] MEDS: DOCUSATE SODIUM 100 MG CAPSULE (FP) PO SCH ×2 (10:04→21:20)
[2021-06-18] MEDS: PRENATAL VITAMINS W/ FOLIC ACID TABLET (FP) PO SCH (10:04)
[2021-06-18] MEDS: ACETAMINOPHEN 325 MG TABLET (FP) PO PRN ×2 (10:05→21:21)
[2021-06-18] MEDS: IBUPROFEN 400 MG TABLET (FP) PO PRN (14:32)
[2021-06-18] MEDS: MAGNESIUM HYDROX 2400MG/30ML ORAL SUSPENSION 30 ML CUP PO PRN (19:02)
[2021-06-18] MEDS: THIAMINE HCL 100 MG TABLET (FP) PO SCH (21:20)
[2021-06-18] MEDS: MELATONIN 5 MG TABLETS PO PRN (21:21)
[2021-06-19] MEDS ORDERED: methaDONE HCL 10 MG TABLET ONE (03:01)
[2021-06-19] MEDS ORDERED: methaDONE HCL 40 MG DISPERSABLE TABLET ONE (03:01)
[2021-06-19] MEDS: ACETAMINOPHEN 325 MG TABLET (FP) PO PRN ×2 (06:12→21:23)
[2021-06-19] MEDS: methaDONE 40 MG, methaDONE 30 MG PO SCH (06:12)
[2021-06-19] MEDS: GABAPENTIN 300 MG CAPSULE PO SCH ×3 (06:15→21:24)
[2021-06-19] MEDS: PRENATAL VITAMINS W/ FOLIC ACID TABLET (FP) PO SCH (09:34)
[2021-06-19] MEDS: DOCUSATE SODIUM 100 MG CAPSULE (FP) PO SCH ×2 (09:34→21:23)
[2021-06-19] MEDS: NICOTINE POLACRILEX 4 MG GUM BUC PRN ×2 (09:35→15:41)
[2021-06-19] MEDS: MAGNESIUM HYDROX 2400MG/30ML ORAL SUSPENSION 30 ML CUP PO PRN (10:39)
[2021-06-19] MEDS: MELATONIN 5 MG TABLETS PO PRN (21:24)
[2021-06-19] MEDS: THIAMINE HCL 100 MG TABLET (FP) PO SCH (21:24)
[2021-06-20] MEDS ORDERED: methaDONE HCL 10 MG TABLET ONE (05:28)
[2021-06-20] MEDS ORDERED: methaDONE HCL 40 MG DISPERSABLE TABLET ONE (05:28)
[2021-06-20] MEDS: hydrOXYzine PAMOATE 25 MG CAPSULE (FP) PO PRN ×2 (06:11→21:15)
[2021-06-20] MEDS: methaDONE 40 MG, methaDONE 30 MG PO SCH (06:11)
[2021-06-20] MEDS: ACETAMINOPHEN 325 MG TABLET (FP) PO PRN ×2 (06:11→21:15)
[2021-06-20] MEDS: GABAPENTIN 300 MG CAPSULE PO SCH ×3 (06:11→21:15)
[2021-06-20] MEDS: NICOTINE POLACRILEX 4 MG GUM BUC PRN ×3 (08:26→17:40)
[2021-06-20] MEDS: DOCUSATE SODIUM 100 MG CAPSULE (FP) PO SCH ×2 (09:50→21:15)
[2021-06-20] MEDS: PRENATAL VITAMINS W/ FOLIC ACID TABLET (FP) PO SCH (09:51)
[2021-06-20] MEDS: MELATONIN 5 MG TABLETS PO PRN (21:14)
[2021-06-20] MEDS: THIAMINE HCL 100 MG TABLET (FP) PO SCH (21:15)
[2021-06-21] MEDS ORDERED: methaDONE HCL 40 MG DISPERSABLE TABLET ONE ×2 (03:00→06:15)
[2021-06-21] MEDS ORDERED: methaDONE HCL 10 MG TABLET ONE ×2 (03:00→06:15)
[2021-06-21] MEDS: methaDONE 40 MG, methaDONE 30 MG PO SCH (06:09)
[2021-06-21] MEDS: ACETAMINOPHEN 325 MG TABLET (FP) PO PRN ×2 (06:09→21:55)
[2021-06-21] MEDS: hydrOXYzine PAMOATE 25 MG CAPSULE (FP) PO PRN ×2 (06:09→21:55)
[2021-06-21] MEDS: GABAPENTIN 300 MG CAPSULE PO SCH ×3 (06:09→21:55)
[2021-06-21] MEDS: PRENATAL VITAMINS W/ FOLIC ACID TABLET (FP) PO SCH (10:07)
[2021-06-21] MEDS: DOCUSATE SODIUM 100 MG CAPSULE (FP) PO SCH ×2 (10:08→21:55)
[2021-06-21] MEDS: MAGNESIUM HYDROX 2400MG/30ML ORAL SUSPENSION 30 ML CUP PO PRN (11:07)
[2021-06-21] MEDS: NICOTINE POLACRILEX 4 MG GUM BUC PRN ×2 (11:08→20:27)
[2021-06-21] MEDS: THIAMINE HCL 100 MG TABLET (FP) PO SCH (21:56)
[2021-06-21] MEDS: MELATONIN 5 MG TABLETS PO PRN (21:56)
[2021-06-22] MEDS ORDERED: methaDONE HCL 40 MG DISPERSABLE TABLET ONE (02:58)
[2021-06-22] MEDS ORDERED: methaDONE HCL 10 MG TABLET ONE (02:58)
[2021-06-22] MEDS: methaDONE 40 MG, methaDONE 30 MG PO SCH (06:11)
[2021-06-22] MEDS: GABAPENTIN 300 MG CAPSULE PO SCH ×3 (06:12→21:22)
[2021-06-22] MEDS: ACETAMINOPHEN 325 MG TABLET (FP) PO PRN ×2 (06:12→21:22)
[2021-06-22] MEDS: hydrOXYzine PAMOATE 25 MG CAPSULE (FP) PO PRN ×2 (06:12→21:22)
[2021-06-22] MEDS: PRENATAL VITAMINS W/ FOLIC ACID TABLET (FP) PO SCH (10:20)
[2021-06-22] MEDS: NICOTINE POLACRILEX 4 MG GUM BUC PRN ×3 (10:20→14:48)
[2021-06-22] MEDS: DOCUSATE SODIUM 100 MG CAPSULE (FP) PO SCH ×2 (10:20→21:22)
[2021-06-22] MEDS: THIAMINE HCL 100 MG TABLET (FP) PO SCH (21:22)
[2021-06-22] MEDS: MELATONIN 5 MG TABLETS PO PRN (21:22)
[2021-06-23] MEDS ORDERED: methaDONE HCL 10 MG TABLET ONE (03:12)
[2021-06-23] MEDS ORDERED: methaDONE HCL 40 MG DISPERSABLE TABLET ONE (03:13)
[2021-06-23] MEDS: hydrOXYzine PAMOATE 25 MG CAPSULE (FP) PO PRN ×2 (06:14→21:23)
[2021-06-23] MEDS: methaDONE 40 MG, methaDONE 30 MG PO SCH (06:14)
[2021-06-23] MEDS: ACETAMINOPHEN 325 MG TABLET (FP) PO PRN ×2 (06:14→21:24)
[2021-06-23] MEDS: GABAPENTIN 300 MG CAPSULE PO SCH ×3 (06:17→21:23)
[2021-06-23] MEDS: DOCUSATE SODIUM 100 MG CAPSULE (FP) PO SCH ×2 (09:30→21:22)
[2021-06-23] MEDS: PRENATAL VITAMINS W/ FOLIC ACID TABLET (FP) PO SCH (09:30)
[2021-06-23] MEDS: NICOTINE POLACRILEX 4 MG GUM BUC PRN ×3 (09:31→18:48)
[2021-06-23] MEDS: THIAMINE HCL 100 MG TABLET (FP) PO SCH (21:22)
[2021-06-23] MEDS: MELATONIN 5 MG TABLETS PO PRN (21:23)
[2021-06-24] MEDS ORDERED: methaDONE 40 MG, methaDONE 30 MG PO SCH (06:00)
[2021-06-24] MEDS ORDERED: methaDONE HCL 10 MG TABLET ONE (06:09)
[2021-06-24] MEDS ORDERED: methaDONE HCL 40 MG DISPERSABLE TABLET ONE (06:09)
[2021-06-24] MEDS: ACETAMINOPHEN 325 MG TABLET (FP) PO PRN (06:10)
[2021-06-24] MEDS: hydrOXYzine PAMOATE 25 MG CAPSULE (FP) PO PRN (06:10)
[2021-06-24] MEDS: GABAPENTIN 300 MG CAPSULE PO SCH (06:10)
[2021-06-24 07:14] VITALS: BP 131/87; PULSE 70; TEMP 96.7
[2021-06-24] MEDS: PRENATAL VITAMINS W/ FOLIC ACID TABLET (FP) PO SCH (09:40)
[2021-06-24] MEDS: DOCUSATE SODIUM 100 MG CAPSULE (FP) PO SCH (09:40)
== END 2021-06-24 10:25 | disposition other institution (70) | DRG 772 ==
LOC: YASAS 14:48 → Y5N 14:50
PROVIDERS: ADMIT Allergy & Immunology; ATTEND Allergy & Immunology
PROC: HZ42ZZZ Group Counseling for Substance Abuse Treatment, Cognitive-Behavioral (ICD-10-PCS; principal; 2021-06-09)
DX: F10.20 Alcohol dependence, uncomplicated (principal); F11.20 Opioid dependence, uncomplicated; F14.20 Cocaine dependence, uncomplicated; F13.20 Sedative, hypnotic or anxiolytic dependence, uncomplicated; F19.280 Other psychoactive substance dependence with psychoactive substance-induced anxiety disorder; F19.282 Other psychoactive substance dependence with psychoactive substance-induced sleep disorder; F41.9 Anxiety disorder, unspecified; E78.5 Hyperlipidemia, unspecified; Z87.19 Personal history of other diseases of the digestive system; Z59.00 Homelessness unspecified; Z88.2 Allergy status to sulfonamides
CPT/HCPCS: C9803-CS; U0003; U0005

== ENCOUNTER 2022-06-24 17:39 | Inpatient (IN) | payer OTHER ==
[2022-06-24 16:44] VITALS: BMI 31.3
[~2022-06-24 17:39] MED LIST: ACETAMINOPHEN 325 MG TABLET (FP) PO PRN; BENZOCAINE/MENTHOL (CHLORASEPTIC ) LOZENGE MM PRN; BISMUTH SUBSALICYLATE 524 MG/30 ML PO PRN; DICYCLOMINE HCL 10 MG CAPSULE PO PRN; IBUPROFEN 400 MG TABLET (FP) PO PRN; IBUPROFEN 600 MG TABLET (FP) PO PRN; LOPERAMIDE HCL 2 MG CAPSULE PO PRN; MAG HYDROX/AL HYDROX/SIMETH 30 ML UNIT-DOSE CUP PO PRN; MAGNESIUM HYDROX 2400MG/30ML ORAL SUSPENSION 30 ML CUP PO PRN; NALOXONE HCL (KLOXXADO) 8 MG SPRAY NS PRN; NICOTINE 10 MG CARTRIDGE (INHALER) IH PRN; ONDANSETRON *ODT* 4 MG TABLET SL PRN; POLYETHYLENE GLYCOL (HEALTHYLAX) 3350 17 GM PACKET PO PRN
[2022-06-24] MEDS ORDERED: chlordiazePOXIDE HCL 25 MG CAPSULE ONE (17:54)
[2022-06-24] MEDS: chlordiazePOXIDE HCL 25 MG CAPSULE PO SCH ×2 (17:58→22:16)
[2022-06-24] MEDS: PRENATAL VITAMINS W/ FOLIC ACID TABLET (FP) PO SCH (18:38)
[2022-06-24] MEDS: NICOTINE POLACRILEX 4 MG GUM BUC PRN (18:40)
[2022-06-24] MEDS ORDERED: BENZOCAINE 20 % GEL TUBE MM PRN (20:25)
[2022-06-24] MEDS ORDERED: DOCUSATE SODIUM 100 MG CAPSULE (FP) PO SCH (22:00)
[2022-06-24] MEDS: MELATONIN 5 MG TABLETS PO SCH (22:14)
[2022-06-24] MEDS: GABAPENTIN 300 MG CAPSULE PO SCH (22:14)
[2022-06-24] MEDS: THIAMINE HCL 100 MG TABLET (FP) PO SCH (22:14)
[2022-06-24] MEDS: DOCUSATE SODIUM 100 MG CAPSULE (FP) PO SCH (22:15)
[2022-06-25] MEDS: GABAPENTIN 300 MG CAPSULE PO SCH ×3 (06:03→22:12)
[2022-06-25] MEDS: chlordiazePOXIDE HCL 25 MG CAPSULE PO SCH ×4 (06:04→22:13)
[2022-06-25] MEDS ORDERED: methaDONE HCL 10 MG TABLET PO ONE (09:48)
[2022-06-25] MEDS ORDERED: PATIENT'S OWN MEDICATION (NON-FORMULARY) (Methadone 70 MG) PO SCH (10:00)
[2022-06-25] MEDS: DOCUSATE SODIUM 100 MG CAPSULE (FP) PO SCH ×2 (10:07→22:13)
[2022-06-25] MEDS: PRENATAL VITAMINS W/ FOLIC ACID TABLET (FP) PO SCH (10:07)
[2022-06-25] MEDS ORDERED: methaDONE 40 MG, methaDONE 30 MG PO ONE (10:30)
[2022-06-25 12:51] LABS: HEMATOCRIT 34.1 % (35.4-49); HEMOGLOBIN 11.7 GM/dL (11.7-16.9); MCHC 34.3 g/dl (32.0-35.9); MEAN CELL VOLUME 84.5 fl (80-96); MEAN PLT VOLUME 7.7 fl (7.5-11.1); PLATELET COUNT 309 10^3/uL (134-434); RBC 4.03 M/mm3 (4.00-5.60); RDW 13.7 % (11.9-15.9); WHITE BLOOD COUNT 3.8 K/mm3 (4.0-10.0)
[2022-06-25 13:32] LABS: CALCIUM 8.5 mg/dL (8.5-10.1)
[2022-06-25 13:33] LABS: ALBUMIN 3.2 g/dl (3.4-5.0); BLOOD UREA NITROGEN 10.9 mg/dL (7-18)
[2022-06-25 13:36] LABS: CREATININE 0.8 mg/dL (0.55-1.3)
[2022-06-25 13:38] LABS: BILIRUBIN,TOTAL 0.3 mg/dL (0.2-1); TOT PROT 6.7 g/dl (6.4-8.2)
[2022-06-25] MEDS: METHOCARBAMOL 500 MG TABLET PO PRN (22:12)
[2022-06-25] MEDS: MELATONIN 5 MG TABLETS PO SCH (22:12)
[2022-06-25] MEDS: THIAMINE HCL 100 MG TABLET (FP) PO SCH (22:13)
[2022-06-26] MEDS: GABAPENTIN 300 MG CAPSULE PO SCH ×3 (05:57→22:20)
[2022-06-26] MEDS: methaDONE 40 MG, methaDONE 30 MG PO SCH (05:57)
[2022-06-26] MEDS: chlordiazePOXIDE HCL 25 MG CAPSULE PO SCH ×4 (05:59→22:21)
[2022-06-26] MEDS ORDERED: methaDONE HCL 40 MG DISPERSABLE TABLET PO SCH (06:00)
[2022-06-26] MEDS: PRENATAL VITAMINS W/ FOLIC ACID TABLET (FP) PO SCH (10:39)
[2022-06-26] MEDS: DOCUSATE SODIUM 100 MG CAPSULE (FP) PO SCH ×2 (10:40→22:20)
[2022-06-26] MEDS: chlordiazePOXIDE HCL 25 MG CAPSULE PO PRN ×2 (13:00→19:49)
[2022-06-26 18:26] VITALS: RESP 18
[2022-06-26] MEDS: NICOTINE POLACRILEX 4 MG GUM BUC PRN (19:50)
[2022-06-26] MEDS: MELATONIN 5 MG TABLETS PO SCH (22:19)
[2022-06-26] MEDS: THIAMINE HCL 100 MG TABLET (FP) PO SCH (22:20)
[2022-06-26] MEDS: METHOCARBAMOL 500 MG TABLET PO PRN (22:20)
[2022-06-27] MEDS ORDERED: chlordiazePOXIDE HCL 10 MG CAPSULE PO PRN
[2022-06-27] MEDS: methaDONE 40 MG, methaDONE 30 MG PO SCH (05:23)
[2022-06-27] MEDS: GABAPENTIN 300 MG CAPSULE PO SCH (05:23)
[2022-06-27] MEDS: chlordiazePOXIDE HCL 10 MG CAPSULE PO SCH ×2 (05:26→10:13)
[2022-06-27 06:20] VITALS: BP 106/66; PULSE 69; TEMP 97.7
[2022-06-27] MEDS: DOCUSATE SODIUM 100 MG CAPSULE (FP) PO SCH (10:11)
[2022-06-27] MEDS: PRENATAL VITAMINS W/ FOLIC ACID TABLET (FP) PO SCH (10:11)
[2022-06-28] MEDS ORDERED: chlordiazePOXIDE HCL 10 MG CAPSULE PO SCH (05:00)
[2022-06-29] MEDS ORDERED: chlordiazePOXIDE HCL 10 MG CAPSULE PO ONE (05:00)
== END 2022-06-27 13:42 | disposition left against medical advice (07) | DRG 770 ==
LOC: YASAS 17:39 → Y3N 17:40
PROVIDERS: ADMIT Allergy & Immunology; ATTEND Surgery
PROC: HZ2ZZZZ Detoxification Services for Substance Abuse Treatment (ICD-10-PCS; principal; 2022-06-23)
DX: F10.230 Alcohol dependence with withdrawal, uncomplicated (principal); F11.20 Opioid dependence, uncomplicated; F14.20 Cocaine dependence, uncomplicated; F13.20 Sedative, hypnotic or anxiolytic dependence, uncomplicated; F17.210 Nicotine dependence, cigarettes, uncomplicated; F19.282 Other psychoactive substance dependence with psychoactive substance-induced sleep disorder; F19.280 Other psychoactive substance dependence with psychoactive substance-induced anxiety disorder; E78.5 Hyperlipidemia, unspecified; Z86.19 Personal history of other infectious and parasitic diseases; Z87.19 Personal history of other diseases of the digestive system; Z88.2 Allergy status to sulfonamides; Z59.00 Homelessness unspecified
CPT/HCPCS: 36415; 80053; 85027; 86780; C9803-CS; U0003; U0005

== ENCOUNTER 2022-07-24 12:17 | Inpatient (IN) | payer OTHER ==
[2022-07-24 13:29] VITALS: BMI 30.5
[2022-07-24] MEDS ORDERED: IBUPROFEN 600 MG TABLET (FP) PO PRN (14:48)
[2022-07-24] MEDS ORDERED: POLYETHYLENE GLYCOL (HEALTHYLAX) 3350 17 GM PACKET PO PRN (14:48)
[2022-07-24] MEDS ORDERED: DICYCLOMINE HCL 10 MG CAPSULE PO PRN (14:48)
[2022-07-24] MEDS ORDERED: NICOTINE 7 MG/24 HOURS TOPICAL PATCH TD PRN (14:48)
[2022-07-24] MEDS ORDERED: NICOTINE 10 MG CARTRIDGE (INHALER) IH PRN (14:48)
[2022-07-24] MEDS ORDERED: IBUPROFEN 400 MG TABLET (FP) PO PRN (14:48)
[2022-07-24] MEDS ORDERED: LOPERAMIDE HCL 2 MG CAPSULE PO PRN (14:48)
[2022-07-24] MEDS ORDERED: MAG HYDROX/AL HYDROX/SIMETH 30 ML UNIT-DOSE CUP PO PRN (14:48)
[2022-07-24] MEDS ORDERED: NALOXONE HCL (KLOXXADO) 8 MG SPRAY NS PRN (14:48)
[2022-07-24] MEDS ORDERED: BENZOCAINE/MENTHOL (CHLORASEPTIC ) LOZENGE MM PRN (14:48)
[2022-07-24] MEDS ORDERED: BISMUTH SUBSALICYLATE 262 MG/15 ML BTL PO PRN (14:48)
[2022-07-24] MEDS ORDERED: ONDANSETRON *ODT* 4 MG TABLET SL PRN (14:48)
[2022-07-24] MEDS ORDERED: MAGNESIUM HYDROX 2400MG/30ML ORAL SUSPENSION 30 ML CUP PO PRN (14:48)
[2022-07-24] MEDS ORDERED: ACETAMINOPHEN 325 MG TABLET (FP) PO PRN ×2 (14:48)
[2022-07-24] MEDS: diazePAM 5 MG TABLET PO SCH ×2 (17:19→23:12)
[2022-07-24] MEDS: NICOTINE POLACRILEX 2 MG GUM BUC PRN ×2 (17:21→21:05)
[2022-07-24] MEDS: diazePAM 5 MG TABLET PO PRN (21:01)
[2022-07-24] MEDS ORDERED: MELATONIN 5 MG TABLETS PO SCH (22:00)
[2022-07-24] MEDS: THIAMINE HCL 100 MG TABLET (FP) PO SCH (23:09)
[2022-07-25] MEDS: diazePAM 5 MG TABLET PO SCH ×4 (05:44→22:02)
[2022-07-25] MEDS: NICOTINE POLACRILEX 2 MG GUM BUC PRN ×5 (05:45→22:04)
[2022-07-25] MEDS: diazePAM 5 MG TABLET PO PRN ×2 (08:56→15:25)
[2022-07-25] MEDS: methaDONE HCL 40 MG DISPERSABLE TABLET PO SCH (09:22)
[2022-07-25] MEDS: PRENATAL VITAMINS W/ FOLIC ACID TABLET (FP) PO SCH (10:17)
[2022-07-25] MEDS: SERTRALINE HCL 50 MG TABLET (FP) PO SCH (10:38)
[2022-07-25] MEDS: busPIRone HCL 10 MG TABLET (FP) PO SCH ×2 (10:38→22:02)
[2022-07-25 10:57] LABS: CALCIUM 8.4 mg/dL (8.5-10.1); HEMATOCRIT 31.1 % (35.4-49); HEMOGLOBIN 10.6 GM/dL (11.7-16.9); MCHC 34.2 g/dl (32.0-35.9); MEAN CELL VOLUME 84.9 fl (80-96); MEAN PLT VOLUME 8.3 fl (7.5-11.1); PLATELET COUNT 205 10^3/uL (134-434); RBC 3.67 M/mm3 (4.00-5.60); RDW 13.2 % (11.9-15.9); WHITE BLOOD COUNT 3.2 K/mm3 (4.0-10.0)
[2022-07-25 10:58] LABS: ALBUMIN 3.1 g/dl (3.4-5.0); BLOOD UREA NITROGEN 12.6 mg/dL (7-18)
[2022-07-25 11:00] LABS: CREATININE 0.8 mg/dL (0.55-1.3)
[2022-07-25 11:02] LABS: BILIRUBIN,TOTAL 0.3 mg/dL (0.2-1); TOT PROT 6.4 g/dl (6.4-8.2)
[2022-07-25] MEDS: GABAPENTIN 100 MG CAPSULE PO SCH ×2 (15:26→22:02)
[2022-07-25] MEDS: hydrOXYzine PAMOATE 25 MG CAPSULE (FP) PO PRN (17:23)
[2022-07-25] MEDS: THIAMINE HCL 100 MG TABLET (FP) PO SCH (22:02)
[2022-07-25] MEDS: SUVOREXANT 10 MG TABLET PO PRN (22:04)
[2022-07-26] MEDS: diazePAM 5 MG TABLET PO SCH ×3 (05:31→21:39)
[2022-07-26] MEDS: methaDONE HCL 40 MG DISPERSABLE TABLET PO SCH (05:33)
[2022-07-26] MEDS: GABAPENTIN 100 MG CAPSULE PO SCH ×3 (05:33→21:37)
[2022-07-26] MEDS: NICOTINE POLACRILEX 2 MG GUM BUC PRN ×4 (05:35→21:41)
[2022-07-26] MEDS: SERTRALINE HCL 50 MG TABLET (FP) PO SCH (10:24)
[2022-07-26] MEDS: busPIRone HCL 10 MG TABLET (FP) PO SCH ×2 (10:24→21:38)
[2022-07-26] MEDS: PRENATAL VITAMINS W/ FOLIC ACID TABLET (FP) PO SCH (10:24)
[2022-07-26] MEDS: diazePAM 5 MG TABLET PO PRN ×2 (10:28→17:41)
[2022-07-26] MEDS: hydrOXYzine PAMOATE 25 MG CAPSULE (FP) PO PRN (17:41)
[2022-07-26] MEDS: THIAMINE HCL 100 MG TABLET (FP) PO SCH (21:38)
[2022-07-26] MEDS: METHOCARBAMOL 500 MG TABLET PO PRN (21:38)
[2022-07-26] MEDS: SUVOREXANT 10 MG TABLET PO PRN (21:40)
[2022-07-27] MEDS: methaDONE HCL 40 MG DISPERSABLE TABLET PO SCH (05:42)
[2022-07-27] MEDS: diazePAM 5 MG TABLET PO SCH ×2 (05:43→17:36)
[2022-07-27] MEDS: GABAPENTIN 100 MG CAPSULE PO SCH ×3 (05:43→22:05)
[2022-07-27] MEDS: NICOTINE POLACRILEX 2 MG GUM BUC PRN ×4 (05:45→17:38)
[2022-07-27] MEDS: busPIRone HCL 10 MG TABLET (FP) PO SCH ×2 (10:11→22:05)
[2022-07-27] MEDS: PRENATAL VITAMINS W/ FOLIC ACID TABLET (FP) PO SCH (10:11)
[2022-07-27] MEDS: SERTRALINE HCL 50 MG TABLET (FP) PO SCH (10:11)
[2022-07-27] MEDS: diazePAM 5 MG TABLET PO PRN ×2 (10:13→14:15)
[2022-07-27 21:17] VITALS: RESP 16
[2022-07-27] MEDS: SUVOREXANT 10 MG TABLET PO PRN (22:04)
[2022-07-27] MEDS: METHOCARBAMOL 500 MG TABLET PO PRN (22:05)
[2022-07-27] MEDS: THIAMINE HCL 100 MG TABLET (FP) PO SCH (22:06)
[2022-07-28] MEDS: GABAPENTIN 100 MG CAPSULE PO SCH (05:34)
[2022-07-28] MEDS: methaDONE HCL 40 MG DISPERSABLE TABLET PO SCH (05:34)
[2022-07-28] MEDS: NICOTINE POLACRILEX 2 MG GUM BUC PRN ×3 (05:37→10:16)
[2022-07-28] MEDS ORDERED: diazePAM 5 MG TABLET PO ONE (06:00)
[2022-07-28 09:58] VITALS: BP 128/72; PULSE 76; TEMP 98.2
[2022-07-28] MEDS: PRENATAL VITAMINS W/ FOLIC ACID TABLET (FP) PO SCH (10:14)
[2022-07-28] MEDS: SERTRALINE HCL 50 MG TABLET (FP) PO SCH (10:14)
[2022-07-28] MEDS: busPIRone HCL 10 MG TABLET (FP) PO SCH (10:14)
[2022-07-28] MEDS: METHOCARBAMOL 500 MG TABLET PO PRN (10:16)
[2022-07-28] MEDS: hydrOXYzine PAMOATE 25 MG CAPSULE (FP) PO PRN (10:16)
== END 2022-07-28 12:14 | disposition other institution (70) | DRG 773 ==
LOC: YASAS 12:17 → Y3N 16:47
PROVIDERS: ADMIT Allergy & Immunology; ATTEND Surgery
PROC: HZ2ZZZZ Detoxification Services for Substance Abuse Treatment (ICD-10-PCS; principal; 2022-07-24)
DX: F10.230 Alcohol dependence with withdrawal, uncomplicated (principal); F11.20 Opioid dependence, uncomplicated; F13.20 Sedative, hypnotic or anxiolytic dependence, uncomplicated; F14.20 Cocaine dependence, uncomplicated; F17.210 Nicotine dependence, cigarettes, uncomplicated; F19.282 Other psychoactive substance dependence with psychoactive substance-induced sleep disorder; F19.280 Other psychoactive substance dependence with psychoactive substance-induced anxiety disorder; F41.9 Anxiety disorder, unspecified; D64.9 Anemia, unspecified; Z88.2 Allergy status to sulfonamides; Z56.0 Unemployment, unspecified; Z59.00 Homelessness unspecified
CPT/HCPCS: 36415; 80053; 85027; 86780; C9803-CS; U0003; U0005

== ENCOUNTER 2022-07-28 12:18 | Inpatient (IN) | payer OTHER ==
[2022-07-28] MEDS ORDERED: POLYETHYLENE GLYCOL (HEALTHYLAX) 3350 17 GM PACKET PO PRN (12:35)
[2022-07-28] MEDS ORDERED: BENZOCAINE/MENTHOL (CHLORASEPTIC ) LOZENGE MM PRN (12:35)
[2022-07-28] MEDS ORDERED: LOPERAMIDE HCL 2 MG CAPSULE PO PRN (12:35)
[2022-07-28] MEDS ORDERED: MAG HYDROX/AL HYDROX/SIMETH 30 ML UNIT-DOSE CUP PO PRN (12:35)
[2022-07-28] MEDS ORDERED: guaiFENesin 200 MG/10 ML 10 ML UNIT-DOSE CUPS PO PRN (12:35)
[2022-07-28] MEDS ORDERED: NICOTINE 10 MG CARTRIDGE (INHALER) IH PRN (12:35)
[2022-07-28] MEDS ORDERED: P-EPHED 60MG/TRIPROLIDI 2.5MG TABLET PO PRN (12:35)
[2022-07-28] MEDS: NICOTINE POLACRILEX 2 MG GUM BUC PRN ×3 (13:44→21:19)
[2022-07-28] MEDS: PRENATAL VITAMINS W/ FOLIC ACID TABLET (FP) PO SCH (14:19)
[2022-07-28] MEDS: NICOTINE 7 MG/24 HOURS TOPICAL PATCH TD SCH (14:19)
[2022-07-28] MEDS: GABAPENTIN 300 MG CAPSULE PO SCH (21:19)
[2022-07-28] MEDS: THIAMINE HCL 100 MG TABLET (FP) PO SCH (21:19)
[2022-07-28] MEDS: SUVOREXANT 10 MG TABLET PO PRN (21:19)
[2022-07-28] MEDS ORDERED: MELATONIN 5 MG TABLETS PO SCH (22:00)
[2022-07-28] MEDS ORDERED: IBUPROFEN 600 MG TABLET (FP) PO SCH (22:00)
[2022-07-29] MEDS: GABAPENTIN 300 MG CAPSULE PO SCH ×3 (06:32→21:03)
[2022-07-29] MEDS: NICOTINE POLACRILEX 2 MG GUM BUC PRN ×5 (06:33→21:04)
[2022-07-29] MEDS: methaDONE HCL 40 MG DISPERSABLE TABLET PO SCH (06:33)
[2022-07-29] MEDS: PRENATAL VITAMINS W/ FOLIC ACID TABLET (FP) PO SCH (09:51)
[2022-07-29] MEDS: NICOTINE 7 MG/24 HOURS TOPICAL PATCH TD SCH (09:51)
[2022-07-29] MEDS: hydrOXYzine PAMOATE 25 MG CAPSULE (FP) PO PRN (09:52)
[2022-07-29] MEDS: SERTRALINE HCL 50 MG TABLET (FP) PO SCH (09:52)
[2022-07-29] MEDS: busPIRone HCL 10 MG TABLET (FP) PO SCH ×2 (11:56→21:03)
[2022-07-29] MEDS: MAGNESIUM HYDROX 2400MG/30ML ORAL SUSPENSION 30 ML CUP PO PRN (12:28)
[2022-07-29] MEDS: THIAMINE HCL 100 MG TABLET (FP) PO SCH (21:02)
[2022-07-29] MEDS: SUVOREXANT 10 MG TABLET PO PRN (21:03)
[2022-07-30] MEDS: methaDONE HCL 40 MG DISPERSABLE TABLET PO SCH (06:01)
[2022-07-30] MEDS: GABAPENTIN 300 MG CAPSULE PO SCH ×3 (06:01→21:17)
[2022-07-30] MEDS: NICOTINE POLACRILEX 2 MG GUM BUC PRN ×4 (06:02→16:30)
[2022-07-30] MEDS: hydrOXYzine PAMOATE 25 MG CAPSULE (FP) PO PRN (09:54)
[2022-07-30] MEDS: SERTRALINE HCL 50 MG TABLET (FP) PO SCH (09:54)
[2022-07-30] MEDS: IBUPROFEN 400 MG TABLET (FP) PO PRN (09:54)
[2022-07-30] MEDS: busPIRone HCL 10 MG TABLET (FP) PO SCH ×2 (09:54→21:17)
[2022-07-30] MEDS: PRENATAL VITAMINS W/ FOLIC ACID TABLET (FP) PO SCH (09:54)
[2022-07-30] MEDS: NICOTINE 7 MG/24 HOURS TOPICAL PATCH TD SCH (10:48)
[2022-07-30] MEDS: MAGNESIUM HYDROX 2400MG/30ML ORAL SUSPENSION 30 ML CUP PO PRN (13:14)
[2022-07-30] MEDS: THIAMINE HCL 100 MG TABLET (FP) PO SCH (21:16)
[2022-07-30] MEDS: SUVOREXANT 10 MG TABLET PO PRN (21:17)
[2022-07-31] MEDS: NICOTINE POLACRILEX 2 MG GUM BUC PRN ×5 (06:24→21:29)
[2022-07-31] MEDS: GABAPENTIN 300 MG CAPSULE PO SCH ×3 (06:25→21:28)
[2022-07-31] MEDS: methaDONE HCL 40 MG DISPERSABLE TABLET PO SCH (06:25)
[2022-07-31] MEDS: SERTRALINE HCL 50 MG TABLET (FP) PO SCH (10:31)
[2022-07-31] MEDS: PRENATAL VITAMINS W/ FOLIC ACID TABLET (FP) PO SCH (10:31)
[2022-07-31] MEDS: busPIRone HCL 10 MG TABLET (FP) PO SCH ×2 (10:31→21:28)
[2022-07-31] MEDS: hydrOXYzine PAMOATE 25 MG CAPSULE (FP) PO PRN (10:33)
[2022-07-31] MEDS: IBUPROFEN 400 MG TABLET (FP) PO PRN (10:33)
[2022-07-31] MEDS: NICOTINE 7 MG/24 HOURS TOPICAL PATCH TD SCH (11:15)
[2022-07-31] MEDS: MAGNESIUM HYDROX 2400MG/30ML ORAL SUSPENSION 30 ML CUP PO PRN (15:47)
[2022-07-31] MEDS: SUVOREXANT 10 MG TABLET PO PRN (21:27)
[2022-07-31] MEDS: THIAMINE HCL 100 MG TABLET (FP) PO SCH (21:28)
[2022-08-01] MEDS: methaDONE HCL 40 MG DISPERSABLE TABLET PO SCH (05:48)
[2022-08-01] MEDS: GABAPENTIN 300 MG CAPSULE PO SCH ×3 (05:48→21:29)
[2022-08-01] MEDS: NICOTINE POLACRILEX 2 MG GUM BUC PRN ×4 (05:49→21:31)
[2022-08-01] MEDS: busPIRone HCL 10 MG TABLET (FP) PO SCH ×2 (10:19→21:29)
[2022-08-01] MEDS: NICOTINE 7 MG/24 HOURS TOPICAL PATCH TD SCH (10:19)
[2022-08-01] MEDS: PRENATAL VITAMINS W/ FOLIC ACID TABLET (FP) PO SCH (10:19)
[2022-08-01] MEDS: SERTRALINE HCL 50 MG TABLET (FP) PO SCH (10:19)
[2022-08-01] MEDS: IBUPROFEN 400 MG TABLET (FP) PO PRN (10:20)
[2022-08-01] MEDS: MAGNESIUM HYDROX 2400MG/30ML ORAL SUSPENSION 30 ML CUP PO PRN (12:17)
[2022-08-01] MEDS: THIAMINE HCL 100 MG TABLET (FP) PO SCH (21:29)
[2022-08-01] MEDS: SUVOREXANT 10 MG TABLET PO PRN (21:30)
[2022-08-02] MEDS: GABAPENTIN 300 MG CAPSULE PO SCH ×3 (05:53→21:04)
[2022-08-02] MEDS: methaDONE HCL 40 MG DISPERSABLE TABLET PO SCH (05:53)
[2022-08-02] MEDS: NICOTINE POLACRILEX 2 MG GUM BUC PRN ×5 (05:54→21:06)
[2022-08-02] MEDS: SERTRALINE HCL 50 MG TABLET (FP) PO SCH (09:02)
[2022-08-02] MEDS: NICOTINE 7 MG/24 HOURS TOPICAL PATCH TD SCH (09:02)
[2022-08-02] MEDS: hydrOXYzine PAMOATE 25 MG CAPSULE (FP) PO PRN (09:02)
[2022-08-02] MEDS: busPIRone HCL 10 MG TABLET (FP) PO SCH ×2 (09:02→21:04)
[2022-08-02] MEDS: PRENATAL VITAMINS W/ FOLIC ACID TABLET (FP) PO SCH (09:02)
[2022-08-02] MEDS ORDERED: POLYETHYLENE GLYCOL (HEALTHYLAX) 3350 17 GM PACKET PO SCH (11:45)
[2022-08-02] MEDS ORDERED: ONDANSETRON *ODT* 4 MG TABLET SL PRN (14:57)
[2022-08-02] MEDS: ACETAMINOPHEN 325 MG TABLET (FP) PO PRN (16:32)
[2022-08-02] MEDS: THIAMINE HCL 100 MG TABLET (FP) PO SCH (21:04)
[2022-08-02] MEDS: SUVOREXANT 10 MG TABLET PO PRN (21:05)
[2022-08-03] MEDS: GABAPENTIN 300 MG CAPSULE PO SCH ×3 (05:49→21:26)
[2022-08-03] MEDS: methaDONE HCL 40 MG DISPERSABLE TABLET PO SCH (05:49)
[2022-08-03] MEDS: NICOTINE POLACRILEX 2 MG GUM BUC PRN ×4 (05:50→21:27)
[2022-08-03] MEDS: busPIRone HCL 10 MG TABLET (FP) PO SCH ×2 (09:53→21:26)
[2022-08-03] MEDS: SERTRALINE HCL 50 MG TABLET (FP) PO SCH (09:53)
[2022-08-03] MEDS: PRENATAL VITAMINS W/ FOLIC ACID TABLET (FP) PO SCH (09:53)
[2022-08-03] MEDS: NICOTINE 7 MG/24 HOURS TOPICAL PATCH TD SCH (09:53)
[2022-08-03] MEDS: POLYETHYLENE GLYCOL (HEALTHYLAX) 3350 17 GM PACKET PO PRN (09:54)
[2022-08-03] MEDS: THIAMINE HCL 100 MG TABLET (FP) PO SCH (21:25)
[2022-08-03] MEDS: SUVOREXANT 10 MG TABLET PO PRN (21:26)
[2022-08-03] MEDS: hydrOXYzine PAMOATE 25 MG CAPSULE (FP) PO PRN (21:26)
[2022-08-04] MEDS: GABAPENTIN 300 MG CAPSULE PO SCH ×3 (05:49→21:12)
[2022-08-04] MEDS: methaDONE HCL 40 MG DISPERSABLE TABLET PO SCH (05:49)
[2022-08-04] MEDS: NICOTINE POLACRILEX 2 MG GUM BUC PRN ×4 (05:50→15:55)
[2022-08-04] MEDS: SERTRALINE HCL 50 MG TABLET (FP) PO SCH (10:05)
[2022-08-04] MEDS: busPIRone HCL 10 MG TABLET (FP) PO SCH ×2 (10:05→21:12)
[2022-08-04] MEDS: PRENATAL VITAMINS W/ FOLIC ACID TABLET (FP) PO SCH (10:05)
[2022-08-04] MEDS: POLYETHYLENE GLYCOL (HEALTHYLAX) 3350 17 GM PACKET PO PRN (10:06)
[2022-08-04] MEDS: NICOTINE 7 MG/24 HOURS TOPICAL PATCH TD SCH (10:06)
[2022-08-04] MEDS: hydrOXYzine PAMOATE 25 MG CAPSULE (FP) PO PRN (10:06)
[2022-08-04] MEDS: POLYETHYLENE GLYCOL (HEALTHYLAX) 3350 17 GM PACKET PO SCH ×2 (10:43→21:13)
[2022-08-04] MEDS: THIAMINE HCL 100 MG TABLET (FP) PO SCH (21:12)
[2022-08-04] MEDS: SUVOREXANT 10 MG TABLET PO PRN (21:13)
[2022-08-05] MEDS: methaDONE HCL 40 MG DISPERSABLE TABLET PO SCH (06:02)
[2022-08-05] MEDS: GABAPENTIN 300 MG CAPSULE PO SCH ×3 (06:02→21:35)
[2022-08-05] MEDS: NICOTINE POLACRILEX 2 MG GUM BUC PRN ×4 (06:03→16:24)
[2022-08-05] MEDS: hydrOXYzine PAMOATE 25 MG CAPSULE (FP) PO PRN ×2 (09:38→21:37)
[2022-08-05] MEDS: PRENATAL VITAMINS W/ FOLIC ACID TABLET (FP) PO SCH (09:38)
[2022-08-05] MEDS: POLYETHYLENE GLYCOL (HEALTHYLAX) 3350 17 GM PACKET PO SCH ×2 (09:38→21:37)
[2022-08-05] MEDS: SERTRALINE HCL 50 MG TABLET (FP) PO SCH (09:38)
[2022-08-05] MEDS: busPIRone HCL 10 MG TABLET (FP) PO SCH ×2 (09:38→21:35)
[2022-08-05] MEDS: NICOTINE 7 MG/24 HOURS TOPICAL PATCH TD SCH (09:39)
[2022-08-05] MEDS: IBUPROFEN 400 MG TABLET (FP) PO PRN (21:35)
[2022-08-05] MEDS: THIAMINE HCL 100 MG TABLET (FP) PO SCH (21:35)
[2022-08-05] MEDS ORDERED: SUVOREXANT 10 MG TABLET PO ONE (22:00)
[2022-08-06] MEDS: methaDONE HCL 40 MG DISPERSABLE TABLET PO SCH (06:02)
[2022-08-06] MEDS: GABAPENTIN 300 MG CAPSULE PO SCH ×3 (06:02→21:09)
[2022-08-06] MEDS: NICOTINE POLACRILEX 2 MG GUM BUC PRN ×5 (06:03→15:46)
[2022-08-06] MEDS: busPIRone HCL 10 MG TABLET (FP) PO SCH ×2 (10:23→21:09)
[2022-08-06] MEDS: PRENATAL VITAMINS W/ FOLIC ACID TABLET (FP) PO SCH (10:23)
[2022-08-06] MEDS: NICOTINE 7 MG/24 HOURS TOPICAL PATCH TD SCH (10:23)
[2022-08-06] MEDS: SERTRALINE HCL 50 MG TABLET (FP) PO SCH (10:23)
[2022-08-06] MEDS: POLYETHYLENE GLYCOL (HEALTHYLAX) 3350 17 GM PACKET PO SCH ×2 (10:23→21:09)
[2022-08-06] MEDS: IBUPROFEN 400 MG TABLET (FP) PO PRN (10:24)
[2022-08-06] MEDS ORDERED: NYSTATIN/TRIAMCINOLONE TOPICAL CREAM 15 GM TUBE TP SCH (13:00)
[2022-08-06] MEDS: FLUOCINONIDE 0.05% CREAM (15 GM TUBE) TP SCH ×2 (14:38→21:10)
[2022-08-06] MEDS: SUVOREXANT 10 MG TABLET PO PRN (21:08)
[2022-08-06] MEDS: THIAMINE HCL 100 MG TABLET (FP) PO SCH (21:09)
[2022-08-07] MEDS: methaDONE HCL 40 MG DISPERSABLE TABLET PO SCH (06:08)
[2022-08-07] MEDS: GABAPENTIN 300 MG CAPSULE PO SCH ×3 (06:08→21:26)
[2022-08-07] MEDS: NICOTINE POLACRILEX 2 MG GUM BUC PRN ×5 (06:09→21:27)
[2022-08-07] MEDS: busPIRone HCL 10 MG TABLET (FP) PO SCH ×2 (10:04→21:26)
[2022-08-07] MEDS: SERTRALINE HCL 50 MG TABLET (FP) PO SCH (10:04)
[2022-08-07] MEDS: ACETAMINOPHEN 325 MG TABLET (FP) PO PRN (10:04)
[2022-08-07] MEDS: NICOTINE 7 MG/24 HOURS TOPICAL PATCH TD SCH (10:04)
[2022-08-07] MEDS: PRENATAL VITAMINS W/ FOLIC ACID TABLET (FP) PO SCH (10:04)
[2022-08-07] MEDS: POLYETHYLENE GLYCOL (HEALTHYLAX) 3350 17 GM PACKET PO SCH ×2 (10:05→21:38)
[2022-08-07] MEDS: FLUOCINONIDE 0.05% CREAM (15 GM TUBE) TP SCH ×2 (10:05→21:39)
[2022-08-07] MEDS: hydrOXYzine PAMOATE 25 MG CAPSULE (FP) PO PRN ×2 (10:06→21:27)
[2022-08-07] MEDS: THIAMINE HCL 100 MG TABLET (FP) PO SCH (21:26)
[2022-08-07] MEDS: SUVOREXANT 10 MG TABLET PO PRN (21:27)
[2022-08-08] MEDS: methaDONE HCL 40 MG DISPERSABLE TABLET PO SCH (06:05)
[2022-08-08] MEDS: GABAPENTIN 300 MG CAPSULE PO SCH ×3 (06:05→21:12)
[2022-08-08] MEDS: NICOTINE POLACRILEX 2 MG GUM BUC PRN ×3 (06:06→14:03)
[2022-08-08] MEDS: SERTRALINE HCL 50 MG TABLET (FP) PO SCH (10:27)
[2022-08-08] MEDS: busPIRone HCL 10 MG TABLET (FP) PO SCH ×2 (10:27→21:12)
[2022-08-08] MEDS: PRENATAL VITAMINS W/ FOLIC ACID TABLET (FP) PO SCH (10:27)
[2022-08-08] MEDS: POLYETHYLENE GLYCOL (HEALTHYLAX) 3350 17 GM PACKET PO SCH ×2 (10:27→21:12)
[2022-08-08] MEDS: NICOTINE 7 MG/24 HOURS TOPICAL PATCH TD SCH (10:28)
[2022-08-08] MEDS: FLUOCINONIDE 0.05% CREAM (15 GM TUBE) TP SCH ×2 (10:28→21:51)
[2022-08-08] MEDS: IBUPROFEN 400 MG TABLET (FP) PO PRN (10:29)
[2022-08-08] MEDS: hydrOXYzine PAMOATE 25 MG CAPSULE (FP) PO PRN ×2 (10:30→21:12)
[2022-08-08] MEDS: THIAMINE HCL 100 MG TABLET (FP) PO SCH (21:11)
[2022-08-08] MEDS: SUVOREXANT 10 MG TABLET PO PRN (21:12)
[2022-08-09] MEDS: GABAPENTIN 300 MG CAPSULE PO SCH ×3 (06:22→21:18)
[2022-08-09] MEDS: methaDONE HCL 40 MG DISPERSABLE TABLET PO SCH (06:22)
[2022-08-09] MEDS: NICOTINE POLACRILEX 2 MG GUM BUC PRN ×4 (06:24→16:26)
[2022-08-09] MEDS: SERTRALINE HCL 50 MG TABLET (FP) PO SCH (09:50)
[2022-08-09] MEDS: PRENATAL VITAMINS W/ FOLIC ACID TABLET (FP) PO SCH (09:50)
[2022-08-09] MEDS: busPIRone HCL 10 MG TABLET (FP) PO SCH ×2 (09:50→21:18)
[2022-08-09] MEDS: hydrOXYzine PAMOATE 25 MG CAPSULE (FP) PO PRN ×2 (09:50→21:17)
[2022-08-09] MEDS: NICOTINE 7 MG/24 HOURS TOPICAL PATCH TD SCH (09:51)
[2022-08-09] MEDS: FLUOCINONIDE 0.05% CREAM (15 GM TUBE) TP SCH ×2 (09:51→21:20)
[2022-08-09] MEDS: POLYETHYLENE GLYCOL (HEALTHYLAX) 3350 17 GM PACKET PO SCH ×2 (09:51→21:18)
[2022-08-09] MEDS: SUVOREXANT 10 MG TABLET PO PRN (21:17)
[2022-08-09] MEDS: THIAMINE HCL 100 MG TABLET (FP) PO SCH (21:18)
[2022-08-10] MEDS: GABAPENTIN 300 MG CAPSULE PO SCH ×3 (06:11→21:03)
[2022-08-10] MEDS: methaDONE HCL 40 MG DISPERSABLE TABLET PO SCH (06:11)
[2022-08-10] MEDS: hydrOXYzine PAMOATE 25 MG CAPSULE (FP) PO PRN ×2 (06:12→21:03)
[2022-08-10] MEDS: NICOTINE POLACRILEX 2 MG GUM BUC PRN ×3 (06:12→21:04)
[2022-08-10] MEDS: PRENATAL VITAMINS W/ FOLIC ACID TABLET (FP) PO SCH (10:45)
[2022-08-10] MEDS: busPIRone HCL 10 MG TABLET (FP) PO SCH ×2 (10:45→21:03)
[2022-08-10] MEDS: POLYETHYLENE GLYCOL (HEALTHYLAX) 3350 17 GM PACKET PO SCH ×2 (10:45→21:02)
[2022-08-10] MEDS: SERTRALINE HCL 50 MG TABLET (FP) PO SCH (10:45)
[2022-08-10] MEDS: IBUPROFEN 400 MG TABLET (FP) PO PRN (10:46)
[2022-08-10] MEDS: NICOTINE 7 MG/24 HOURS TOPICAL PATCH TD SCH (11:29)
[2022-08-10] MEDS: FLUOCINONIDE 0.05% CREAM (15 GM TUBE) TP SCH ×2 (11:29→21:04)
[2022-08-10] MEDS: SUVOREXANT 10 MG TABLET PO PRN (21:01)
[2022-08-10] MEDS: THIAMINE HCL 100 MG TABLET (FP) PO SCH (21:03)
[2022-08-11] MEDS: hydrOXYzine PAMOATE 25 MG CAPSULE (FP) PO PRN ×2 (06:56→21:06)
[2022-08-11] MEDS: methaDONE HCL 40 MG DISPERSABLE TABLET PO SCH (06:56)
[2022-08-11] MEDS: IBUPROFEN 400 MG TABLET (FP) PO PRN ×2 (06:56→19:11)
[2022-08-11] MEDS: GABAPENTIN 300 MG CAPSULE PO SCH ×3 (06:56→21:05)
[2022-08-11] MEDS: NICOTINE POLACRILEX 2 MG GUM BUC PRN ×5 (06:58→19:12)
[2022-08-11] MEDS: SERTRALINE HCL 50 MG TABLET (FP) PO SCH (09:48)
[2022-08-11] MEDS: PRENATAL VITAMINS W/ FOLIC ACID TABLET (FP) PO SCH (09:48)
[2022-08-11] MEDS: busPIRone HCL 10 MG TABLET (FP) PO SCH ×2 (09:48→21:05)
[2022-08-11] MEDS: FLUOCINONIDE 0.05% CREAM (15 GM TUBE) TP SCH ×2 (09:48→21:07)
[2022-08-11] MEDS: NICOTINE 7 MG/24 HOURS TOPICAL PATCH TD SCH (09:49)
[2022-08-11] MEDS: POLYETHYLENE GLYCOL (HEALTHYLAX) 3350 17 GM PACKET PO SCH ×2 (10:37→21:06)
[2022-08-11] MEDS: THIAMINE HCL 100 MG TABLET (FP) PO SCH (21:05)
[2022-08-11] MEDS: SUVOREXANT 10 MG TABLET PO PRN (21:06)
[2022-08-12] MEDS: GABAPENTIN 300 MG CAPSULE PO SCH ×3 (05:46→21:16)
[2022-08-12] MEDS: IBUPROFEN 400 MG TABLET (FP) PO PRN ×2 (05:46→15:37)
[2022-08-12] MEDS: NICOTINE POLACRILEX 2 MG GUM BUC PRN ×3 (05:47→13:05)
[2022-08-12] MEDS: methaDONE HCL 40 MG DISPERSABLE TABLET PO SCH (05:49)
[2022-08-12] MEDS: hydrOXYzine PAMOATE 25 MG CAPSULE (FP) PO PRN ×2 (05:51→15:37)
[2022-08-12] MEDS ORDERED: BENZOCAINE 20 % GEL TUBE MM PRN (09:50)
[2022-08-12] MEDS: busPIRone HCL 10 MG TABLET (FP) PO SCH ×2 (10:27→21:16)
[2022-08-12] MEDS: NICOTINE 7 MG/24 HOURS TOPICAL PATCH TD SCH (10:27)
[2022-08-12] MEDS: POLYETHYLENE GLYCOL (HEALTHYLAX) 3350 17 GM PACKET PO SCH ×2 (10:27→21:18)
[2022-08-12] MEDS: SERTRALINE HCL 50 MG TABLET (FP) PO SCH (10:27)
[2022-08-12] MEDS: PRENATAL VITAMINS W/ FOLIC ACID TABLET (FP) PO SCH (10:27)
[2022-08-12] MEDS: FLUOCINONIDE 0.05% CREAM (15 GM TUBE) TP SCH ×2 (10:28→21:18)
[2022-08-12] MEDS: ACETAMINOPHEN 325 MG TABLET (FP) PO PRN ×2 (10:29→21:17)
[2022-08-12] MEDS: AMOX TR/POT CLAV 500MG/125MG TABLETS (FP) PO SCH (16:45)
[2022-08-12] MEDS: THIAMINE HCL 100 MG TABLET (FP) PO SCH (21:16)
[2022-08-12] MEDS: SUVOREXANT 10 MG TABLET PO PRN (21:17)
[2022-08-13] MEDS: methaDONE HCL 40 MG DISPERSABLE TABLET PO SCH (05:53)
[2022-08-13] MEDS: GABAPENTIN 300 MG CAPSULE PO SCH ×3 (05:53→21:05)
[2022-08-13] MEDS: hydrOXYzine PAMOATE 25 MG CAPSULE (FP) PO PRN ×2 (05:53→21:07)
[2022-08-13] MEDS: IBUPROFEN 400 MG TABLET (FP) PO PRN ×2 (05:54→21:08)
[2022-08-13] MEDS: NICOTINE POLACRILEX 2 MG GUM BUC PRN ×5 (05:55→21:09)
[2022-08-13] MEDS: AMOX TR/POT CLAV 500MG/125MG TABLETS (FP) PO SCH ×2 (07:53→16:53)
[2022-08-13] MEDS: NICOTINE 7 MG/24 HOURS TOPICAL PATCH TD SCH (10:00)
[2022-08-13] MEDS: busPIRone HCL 10 MG TABLET (FP) PO SCH ×2 (10:00→21:05)
[2022-08-13] MEDS: PRENATAL VITAMINS W/ FOLIC ACID TABLET (FP) PO SCH (10:00)
[2022-08-13] MEDS: FLUOCINONIDE 0.05% CREAM (15 GM TUBE) TP SCH ×2 (10:00→21:41)
[2022-08-13] MEDS: SERTRALINE HCL 50 MG TABLET (FP) PO SCH (10:00)
[2022-08-13] MEDS: POLYETHYLENE GLYCOL (HEALTHYLAX) 3350 17 GM PACKET PO SCH ×2 (10:00→21:07)
[2022-08-13] MEDS: THIAMINE HCL 100 MG TABLET (FP) PO SCH (21:05)
[2022-08-13] MEDS: SUVOREXANT 10 MG TABLET PO PRN (21:06)
[2022-08-14] MEDS: hydrOXYzine PAMOATE 25 MG CAPSULE (FP) PO PRN ×2 (06:19→21:03)
[2022-08-14] MEDS: methaDONE HCL 40 MG DISPERSABLE TABLET PO SCH (06:19)
[2022-08-14] MEDS: GABAPENTIN 300 MG CAPSULE PO SCH ×3 (06:19→21:02)
[2022-08-14] MEDS: NICOTINE POLACRILEX 2 MG GUM BUC PRN ×4 (06:20→16:37)
[2022-08-14] MEDS: AMOX TR/POT CLAV 500MG/125MG TABLETS (FP) PO SCH ×2 (08:18→16:38)
[2022-08-14] MEDS: IBUPROFEN 400 MG TABLET (FP) PO PRN ×2 (10:11→21:03)
[2022-08-14] MEDS: SERTRALINE HCL 50 MG TABLET (FP) PO SCH (10:11)
[2022-08-14] MEDS: POLYETHYLENE GLYCOL (HEALTHYLAX) 3350 17 GM PACKET PO SCH ×2 (10:11→21:03)
[2022-08-14] MEDS: busPIRone HCL 10 MG TABLET (FP) PO SCH ×2 (10:11→21:03)
[2022-08-14] MEDS: PRENATAL VITAMINS W/ FOLIC ACID TABLET (FP) PO SCH (10:12)
[2022-08-14] MEDS: NICOTINE 7 MG/24 HOURS TOPICAL PATCH TD SCH (10:12)
[2022-08-14] MEDS: FLUOCINONIDE 0.05% CREAM (15 GM TUBE) TP SCH ×2 (10:12→21:04)
[2022-08-14] MEDS: SUVOREXANT 10 MG TABLET PO PRN (21:03)
[2022-08-14] MEDS: THIAMINE HCL 100 MG TABLET (FP) PO SCH (21:04)
[2022-08-15] MEDS: hydrOXYzine PAMOATE 25 MG CAPSULE (FP) PO PRN ×2 (06:01→21:46)
[2022-08-15] MEDS: NICOTINE POLACRILEX 2 MG GUM BUC PRN ×5 (06:02→21:48)
[2022-08-15] MEDS: methaDONE HCL 40 MG DISPERSABLE TABLET PO SCH (06:02)
[2022-08-15] MEDS: GABAPENTIN 300 MG CAPSULE PO SCH ×3 (06:02→21:46)
[2022-08-15] MEDS: AMOX TR/POT CLAV 500MG/125MG TABLETS (FP) PO SCH ×2 (08:11→17:06)
[2022-08-15] MEDS: SERTRALINE HCL 50 MG TABLET (FP) PO SCH (09:47)
[2022-08-15] MEDS: busPIRone HCL 10 MG TABLET (FP) PO SCH ×2 (09:47→21:46)
[2022-08-15] MEDS: PRENATAL VITAMINS W/ FOLIC ACID TABLET (FP) PO SCH (09:47)
[2022-08-15] MEDS: IBUPROFEN 400 MG TABLET (FP) PO PRN ×2 (09:47→21:47)
[2022-08-15] MEDS: POLYETHYLENE GLYCOL (HEALTHYLAX) 3350 17 GM PACKET PO SCH ×2 (09:48→21:46)
[2022-08-15] MEDS: NICOTINE 7 MG/24 HOURS TOPICAL PATCH TD SCH (09:49)
[2022-08-15] MEDS: FLUOCINONIDE 0.05% CREAM (15 GM TUBE) TP SCH ×2 (09:49→21:49)
[2022-08-15] MEDS: SUVOREXANT 10 MG TABLET PO PRN (21:45)
[2022-08-15] MEDS: THIAMINE HCL 100 MG TABLET (FP) PO SCH (21:46)
[2022-08-16] MEDS: hydrOXYzine PAMOATE 25 MG CAPSULE (FP) PO PRN ×2 (06:05→21:06)
[2022-08-16] MEDS: IBUPROFEN 400 MG TABLET (FP) PO PRN (06:05)
[2022-08-16] MEDS: NICOTINE POLACRILEX 2 MG GUM BUC PRN ×5 (06:06→21:08)
[2022-08-16] MEDS: GABAPENTIN 300 MG CAPSULE PO SCH ×3 (06:07→21:06)
[2022-08-16] MEDS: methaDONE HCL 40 MG DISPERSABLE TABLET PO SCH (06:07)
[2022-08-16] MEDS: AMOX TR/POT CLAV 500MG/125MG TABLETS (FP) PO SCH ×2 (08:51→17:20)
[2022-08-16] MEDS: FLUOCINONIDE 0.05% CREAM (15 GM TUBE) TP SCH ×2 (10:47→21:47)
[2022-08-16] MEDS: busPIRone HCL 10 MG TABLET (FP) PO SCH ×2 (10:47→21:06)
[2022-08-16] MEDS: SERTRALINE HCL 50 MG TABLET (FP) PO SCH (10:47)
[2022-08-16] MEDS: NICOTINE 7 MG/24 HOURS TOPICAL PATCH TD SCH (10:47)
[2022-08-16] MEDS: POLYETHYLENE GLYCOL (HEALTHYLAX) 3350 17 GM PACKET PO SCH ×2 (10:47→21:06)
[2022-08-16] MEDS: PRENATAL VITAMINS W/ FOLIC ACID TABLET (FP) PO SCH (10:47)
[2022-08-16] MEDS: THIAMINE HCL 100 MG TABLET (FP) PO SCH (21:06)
[2022-08-16] MEDS: SUVOREXANT 10 MG TABLET PO PRN (21:07)
[2022-08-17] MEDS: hydrOXYzine PAMOATE 25 MG CAPSULE (FP) PO PRN ×2 (06:06→21:37)
[2022-08-17] MEDS: GABAPENTIN 300 MG CAPSULE PO SCH ×3 (06:06→21:37)
[2022-08-17] MEDS: methaDONE HCL 40 MG DISPERSABLE TABLET PO SCH (06:06)
[2022-08-17] MEDS: IBUPROFEN 400 MG TABLET (FP) PO PRN ×2 (06:07→21:38)
[2022-08-17] MEDS: NICOTINE POLACRILEX 2 MG GUM BUC PRN ×5 (06:07→21:39)
[2022-08-17] MEDS: AMOX TR/POT CLAV 500MG/125MG TABLETS (FP) PO SCH ×2 (08:36→18:18)
[2022-08-17] MEDS: FLUOCINONIDE 0.05% CREAM (15 GM TUBE) TP SCH ×2 (09:37→21:37)
[2022-08-17] MEDS: busPIRone HCL 10 MG TABLET (FP) PO SCH ×2 (09:37→21:37)
[2022-08-17] MEDS: POLYETHYLENE GLYCOL (HEALTHYLAX) 3350 17 GM PACKET PO SCH ×2 (09:37→21:37)
[2022-08-17] MEDS: PRENATAL VITAMINS W/ FOLIC ACID TABLET (FP) PO SCH (09:37)
[2022-08-17] MEDS: SERTRALINE HCL 50 MG TABLET (FP) PO SCH (09:37)
[2022-08-17] MEDS: NICOTINE 7 MG/24 HOURS TOPICAL PATCH TD SCH (09:38)
[2022-08-17] MEDS: THIAMINE HCL 100 MG TABLET (FP) PO SCH (21:36)
[2022-08-17] MEDS: SUVOREXANT 15 MG TABLET PO PRN (21:37)
[2022-08-18] MEDS: methaDONE HCL 40 MG DISPERSABLE TABLET PO SCH (05:51)
[2022-08-18] MEDS: GABAPENTIN 300 MG CAPSULE PO SCH ×3 (05:52→21:31)
[2022-08-18] MEDS: NICOTINE POLACRILEX 2 MG GUM BUC PRN ×5 (05:52→21:34)
[2022-08-18] MEDS: IBUPROFEN 400 MG TABLET (FP) PO PRN (05:52)
[2022-08-18] MEDS: PRENATAL VITAMINS W/ FOLIC ACID TABLET (FP) PO SCH (09:02)
[2022-08-18] MEDS: POLYETHYLENE GLYCOL (HEALTHYLAX) 3350 17 GM PACKET PO SCH ×2 (09:03→21:32)
[2022-08-18] MEDS: busPIRone HCL 10 MG TABLET (FP) PO SCH ×2 (09:03→21:31)
[2022-08-18] MEDS: AMOX TR/POT CLAV 500MG/125MG TABLETS (FP) PO SCH ×2 (09:03→16:37)
[2022-08-18] MEDS: SERTRALINE HCL 50 MG TABLET (FP) PO SCH (09:04)
[2022-08-18] MEDS: NICOTINE 7 MG/24 HOURS TOPICAL PATCH TD SCH (09:05)
[2022-08-18] MEDS: FLUOCINONIDE 0.05% CREAM (15 GM TUBE) TP SCH ×2 (09:06→21:32)
[2022-08-18] MEDS: SUVOREXANT 15 MG TABLET PO PRN (21:31)
[2022-08-18] MEDS: THIAMINE HCL 100 MG TABLET (FP) PO SCH (21:31)
[2022-08-19] MEDS: methaDONE HCL 40 MG DISPERSABLE TABLET PO SCH (06:26)
[2022-08-19] MEDS: GABAPENTIN 300 MG CAPSULE PO SCH ×3 (06:27→21:10)
[2022-08-19] MEDS: IBUPROFEN 400 MG TABLET (FP) PO PRN ×2 (06:28→21:11)
[2022-08-19] MEDS: NICOTINE POLACRILEX 2 MG GUM BUC PRN ×4 (06:30→16:40)
[2022-08-19] MEDS: busPIRone HCL 10 MG TABLET (FP) PO SCH ×2 (09:03→21:10)
[2022-08-19] MEDS: AMOX TR/POT CLAV 500MG/125MG TABLETS (FP) PO SCH ×2 (09:03→16:40)
[2022-08-19] MEDS: POLYETHYLENE GLYCOL (HEALTHYLAX) 3350 17 GM PACKET PO SCH ×2 (09:03→21:11)
[2022-08-19] MEDS: PRENATAL VITAMINS W/ FOLIC ACID TABLET (FP) PO SCH (09:03)
[2022-08-19] MEDS: SERTRALINE HCL 50 MG TABLET (FP) PO SCH (09:03)
[2022-08-19] MEDS: FLUOCINONIDE 0.05% CREAM (15 GM TUBE) TP SCH ×2 (09:04→21:12)
[2022-08-19] MEDS: NICOTINE 7 MG/24 HOURS TOPICAL PATCH TD SCH (09:04)
[2022-08-19] MEDS: THIAMINE HCL 100 MG TABLET (FP) PO SCH (21:09)
[2022-08-19] MEDS: SUVOREXANT 15 MG TABLET PO PRN (21:10)
[2022-08-20] MEDS: methaDONE HCL 40 MG DISPERSABLE TABLET PO SCH (06:01)
[2022-08-20] MEDS: NICOTINE POLACRILEX 2 MG GUM BUC PRN ×6 (06:01→21:32)
[2022-08-20] MEDS: GABAPENTIN 300 MG CAPSULE PO SCH ×3 (06:01→21:30)
[2022-08-20] MEDS: AMOX TR/POT CLAV 500MG/125MG TABLETS (FP) PO SCH ×2 (08:44→16:39)
[2022-08-20] MEDS: POLYETHYLENE GLYCOL (HEALTHYLAX) 3350 17 GM PACKET PO SCH ×2 (10:01→21:30)
[2022-08-20] MEDS: busPIRone HCL 10 MG TABLET (FP) PO SCH ×2 (10:01→21:30)
[2022-08-20] MEDS: IBUPROFEN 400 MG TABLET (FP) PO PRN ×2 (10:01→21:31)
[2022-08-20] MEDS: PRENATAL VITAMINS W/ FOLIC ACID TABLET (FP) PO SCH (10:01)
[2022-08-20] MEDS: SERTRALINE HCL 50 MG TABLET (FP) PO SCH (10:01)
[2022-08-20] MEDS: NICOTINE 7 MG/24 HOURS TOPICAL PATCH TD SCH (10:02)
[2022-08-20] MEDS: FLUOCINONIDE 0.05% CREAM (15 GM TUBE) TP SCH ×2 (13:00→21:33)
[2022-08-20] MEDS: THIAMINE HCL 100 MG TABLET (FP) PO SCH (21:30)
[2022-08-20] MEDS: SUVOREXANT 15 MG TABLET PO PRN (21:31)
[2022-08-21] MEDS: methaDONE HCL 40 MG DISPERSABLE TABLET PO SCH (06:09)
[2022-08-21] MEDS: GABAPENTIN 300 MG CAPSULE PO SCH ×3 (06:09→21:08)
[2022-08-21] MEDS: NICOTINE POLACRILEX 2 MG GUM BUC PRN ×5 (06:11→21:10)
[2022-08-21] MEDS: AMOX TR/POT CLAV 500MG/125MG TABLETS (FP) PO SCH ×2 (08:40→16:36)
[2022-08-21] MEDS: POLYETHYLENE GLYCOL (HEALTHYLAX) 3350 17 GM PACKET PO SCH ×2 (09:32→21:08)
[2022-08-21] MEDS: busPIRone HCL 10 MG TABLET (FP) PO SCH ×2 (09:32→21:08)
[2022-08-21] MEDS: SERTRALINE HCL 50 MG TABLET (FP) PO SCH (09:32)
[2022-08-21] MEDS: PRENATAL VITAMINS W/ FOLIC ACID TABLET (FP) PO SCH (09:32)
[2022-08-21] MEDS: NICOTINE 7 MG/24 HOURS TOPICAL PATCH TD SCH (09:33)
[2022-08-21] MEDS: IBUPROFEN 400 MG TABLET (FP) PO PRN ×2 (09:33→21:09)
[2022-08-21] MEDS: FLUOCINONIDE 0.05% CREAM (15 GM TUBE) TP SCH ×2 (09:33→21:10)
[2022-08-21] MEDS: THIAMINE HCL 100 MG TABLET (FP) PO SCH (21:08)
[2022-08-21] MEDS: SUVOREXANT 15 MG TABLET PO PRN (21:08)
[2022-08-22] MEDS: GABAPENTIN 300 MG CAPSULE PO SCH ×3 (06:17→21:20)
[2022-08-22] MEDS: methaDONE HCL 40 MG DISPERSABLE TABLET PO SCH (06:17)
[2022-08-22] MEDS: NICOTINE POLACRILEX 2 MG GUM BUC PRN ×3 (06:19→16:55)
[2022-08-22] MEDS: POLYETHYLENE GLYCOL (HEALTHYLAX) 3350 17 GM PACKET PO SCH ×2 (09:28→21:22)
[2022-08-22] MEDS: busPIRone HCL 10 MG TABLET (FP) PO SCH ×2 (09:28→21:20)
[2022-08-22] MEDS: AMOX TR/POT CLAV 500MG/125MG TABLETS (FP) PO SCH ×2 (09:28→16:56)
[2022-08-22] MEDS: PRENATAL VITAMINS W/ FOLIC ACID TABLET (FP) PO SCH (09:28)
[2022-08-22] MEDS: IBUPROFEN 400 MG TABLET (FP) PO PRN ×2 (09:30→16:55)
[2022-08-22] MEDS: SERTRALINE HCL 50 MG TABLET (FP) PO SCH (10:16)
[2022-08-22] MEDS: FLUOCINONIDE 0.05% CREAM (15 GM TUBE) TP SCH ×2 (10:25→21:22)
[2022-08-22] MEDS: NICOTINE 7 MG/24 HOURS TOPICAL PATCH TD SCH (10:26)
[2022-08-22] MEDS: SUVOREXANT 15 MG TABLET PO PRN (21:19)
[2022-08-22] MEDS: THIAMINE HCL 100 MG TABLET (FP) PO SCH (21:19)
[2022-08-23] MEDS: methaDONE HCL 40 MG DISPERSABLE TABLET PO SCH (06:05)
[2022-08-23] MEDS: GABAPENTIN 300 MG CAPSULE PO SCH ×3 (06:05→21:20)
[2022-08-23] MEDS: NICOTINE POLACRILEX 2 MG GUM BUC PRN ×5 (06:06→21:24)
[2022-08-23] MEDS: busPIRone HCL 10 MG TABLET (FP) PO SCH ×2 (10:08→21:20)
[2022-08-23] MEDS: SERTRALINE HCL 50 MG TABLET (FP) PO SCH (10:08)
[2022-08-23] MEDS: POLYETHYLENE GLYCOL (HEALTHYLAX) 3350 17 GM PACKET PO SCH ×2 (10:08→21:21)
[2022-08-23] MEDS: PRENATAL VITAMINS W/ FOLIC ACID TABLET (FP) PO SCH (10:08)
[2022-08-23] MEDS: IBUPROFEN 400 MG TABLET (FP) PO PRN ×2 (10:09→21:22)
[2022-08-23] MEDS: NICOTINE 7 MG/24 HOURS TOPICAL PATCH TD SCH (10:11)
[2022-08-23] MEDS: FLUOCINONIDE 0.05% CREAM (15 GM TUBE) TP SCH ×2 (10:45→21:21)
[2022-08-23] MEDS: SUVOREXANT 15 MG TABLET PO PRN (21:21)
[2022-08-23] MEDS: THIAMINE HCL 100 MG TABLET (FP) PO SCH (21:23)
[2022-08-24] MEDS: methaDONE HCL 40 MG DISPERSABLE TABLET PO SCH (06:15)
[2022-08-24] MEDS: GABAPENTIN 300 MG CAPSULE PO SCH ×3 (06:15→21:07)
[2022-08-24] MEDS: NICOTINE POLACRILEX 2 MG GUM BUC PRN ×5 (06:17→21:08)
[2022-08-24] MEDS: POLYETHYLENE GLYCOL (HEALTHYLAX) 3350 17 GM PACKET PO SCH ×2 (09:42→21:07)
[2022-08-24] MEDS: NICOTINE 7 MG/24 HOURS TOPICAL PATCH TD SCH (09:42)
[2022-08-24] MEDS: SERTRALINE HCL 50 MG TABLET (FP) PO SCH (09:42)
[2022-08-24] MEDS: FLUOCINONIDE 0.05% CREAM (15 GM TUBE) TP SCH ×2 (09:42→21:50)
[2022-08-24] MEDS: PRENATAL VITAMINS W/ FOLIC ACID TABLET (FP) PO SCH (09:42)
[2022-08-24] MEDS: busPIRone HCL 10 MG TABLET (FP) PO SCH ×2 (09:42→21:07)
[2022-08-24] MEDS: IBUPROFEN 400 MG TABLET (FP) PO PRN (21:07)
[2022-08-24] MEDS: THIAMINE HCL 100 MG TABLET (FP) PO SCH (21:51)
[2022-08-24] MEDS ORDERED: SUVOREXANT 15 MG TABLET PO PRN (22:00)
[2022-08-25] MEDS ORDERED: methaDONE HCL 40 MG DISPERSABLE TABLET PO SCH (06:00)
[2022-08-25] MEDS: GABAPENTIN 300 MG CAPSULE PO SCH (06:28)
[2022-08-25] MEDS: NICOTINE POLACRILEX 2 MG GUM BUC PRN ×2 (06:29→09:06)
[2022-08-25 07:50] VITALS: BP 109/69; PULSE 79; RESP 17; TEMP 97.5
[2022-08-25] MEDS: IBUPROFEN 400 MG TABLET (FP) PO PRN (09:05)
[2022-08-25] MEDS: SERTRALINE HCL 50 MG TABLET (FP) PO SCH (09:06)
[2022-08-25] MEDS: PRENATAL VITAMINS W/ FOLIC ACID TABLET (FP) PO SCH (09:06)
[2022-08-25] MEDS: FLUOCINONIDE 0.05% CREAM (15 GM TUBE) TP SCH (09:07)
[2022-08-25] MEDS: POLYETHYLENE GLYCOL (HEALTHYLAX) 3350 17 GM PACKET PO SCH (09:08)
[2022-08-25] MEDS: busPIRone HCL 10 MG TABLET (FP) PO SCH (09:09)
[2022-08-25] MEDS: NICOTINE 7 MG/24 HOURS TOPICAL PATCH TD SCH (09:09)
== END 2022-08-25 09:15 | disposition home or self-care (01) | DRG 772 ==
LOC: YASAS 12:18 → Y3W 12:20
PROVIDERS: ADMIT Allergy & Immunology; ATTEND Allergy & Immunology
PROC: HZ42ZZZ Group Counseling for Substance Abuse Treatment, Cognitive-Behavioral (ICD-10-PCS; principal; 2022-07-28)
DX: F11.20 Opioid dependence, uncomplicated (principal); F10.20 Alcohol dependence, uncomplicated; F13.20 Sedative, hypnotic or anxiolytic dependence, uncomplicated; F17.210 Nicotine dependence, cigarettes, uncomplicated; F41.9 Anxiety disorder, unspecified; F32.A Depression, unspecified; K59.00 Constipation, unspecified; K08.89 Other specified disorders of teeth and supporting structures; R07.9 Chest pain, unspecified; Z88.2 Allergy status to sulfonamides; Z86.19 Personal history of other infectious and parasitic diseases
CPT/HCPCS: 36415; 86803; 87522

== ENCOUNTER 2023-05-29 19:11 | Inpatient (IN) | payer OTHER ==
[2023-05-29 21:26] VITALS: BMI 29.0
[2023-05-30] MEDS ORDERED: BENZONATATE 200 MG CAPSULE PO PRN (06:46)
[2023-05-30] MEDS ORDERED: LOPERAMIDE HCL 2 MG CAPSULE PO PRN (06:46)
[2023-05-30] MEDS ORDERED: guaiFENesin 600 MG TABLET.ER (FP) PO PRN (06:46)
[2023-05-30] MEDS ORDERED: COLLOIDAL OATMEAL 1 BAR EACH TP PRN (06:46)
[2023-05-30] MEDS ORDERED: NALOXONE HCL 0.4 MG/ML VIAL IM PRN (06:46)
[2023-05-30] MEDS ORDERED: hydrOXYzine PAMOATE 25 MG CAPSULE (FP) PO PRN (06:46)
[2023-05-30] MEDS ORDERED: NALOXONE HCL (KLOXXADO) 8 MG SPRAY NS PRN (06:46)
[2023-05-30] MEDS ORDERED: BENZOCAINE/MENTHOL (CHLORASEPTIC ) LOZENGE MM PRN (06:46)
[2023-05-30] MEDS ORDERED: POLYETHYLENE GLYCOL (HEALTHYLAX) 3350 17 GM PACKET PO PRN (06:46)
[2023-05-30] MEDS ORDERED: MAG HYDROX/AL HYDROX/SIMETH 30 ML UNIT-DOSE CUP PO PRN (06:46)
[2023-05-30] MEDS ORDERED: IBUPROFEN 400 MG TABLET (FP) PO PRN (06:46)
[2023-05-30] MEDS ORDERED: MAGNESIUM HYDROX 2400MG/30ML ORAL SUSPENSION 30 ML CUP PO PRN (06:46)
[2023-05-30] MEDS ORDERED: ACETAMINOPHEN 325 MG TABLET (FP) PO PRN (06:46)
[2023-05-30] MEDS ORDERED: methaDONE HCL 40 MG DISPERSABLE TABLET PO ONE (09:36)
[2023-05-30] MEDS ORDERED: LORazepam 1 MG TABLET PO PRN (09:47)
[2023-05-30] MEDS ORDERED: TUBERCULIN PPD 5 TU/0.1ML SYRINGE (IN PATIENT USE ONLY) ID ONE (10:48)
[2023-05-30] MEDS: NICOTINE 21 MG/24 HOURS TOPICAL PATCH TD SCH (11:05)
[2023-05-30] MEDS: PRENATAL VITAMINS W/ FOLIC ACID TABLET (FP) PO SCH (11:33)
[2023-05-30] MEDS: AMOX TR/POT CLAV 875MG/125MG TABLETS (FP) PO SCH ×2 (11:34→22:27)
[2023-05-30] MEDS: LORazepam 2 MG TABLET PO SCH ×3 (11:45→22:27)
[2023-05-30] MEDS: methaDONE HCL 40 MG DISPERSABLE TABLET PO SCH (11:46)
[2023-05-30] MEDS: NICOTINE POLACRILEX 2 MG GUM BUC PRN ×3 (15:56→22:29)
[2023-05-30] MEDS: IBUPROFEN 600 MG TABLET (FP) PO PRN (17:45)
[2023-05-30] MEDS ORDERED: PATIENT'S OWN MEDICATION (NON-FORMULARY) (Gabapentin [Neurontin] 600 MG Tablet) PO SCH (22:00)
[2023-05-30] MEDS: GABAPENTIN 300 MG CAPSULE PO SCH (22:27)
[2023-05-30] MEDS: THIAMINE HCL 100 MG TABLET (FP) PO SCH (22:27)
[2023-05-30] MEDS: MELATONIN 5 MG TABLETS PO SCH (22:27)
[2023-05-31] MEDS: LORazepam 2 MG TABLET PO SCH ×4 (05:19→22:11)
[2023-05-31] MEDS: methaDONE HCL 40 MG DISPERSABLE TABLET PO SCH (05:19)
[2023-05-31] MEDS: GABAPENTIN 300 MG CAPSULE PO SCH ×3 (05:20→22:11)
[2023-05-31 09:51] LABS: HEMOGLOBIN 11.3 GM/dL (11.7-16.9); MCH 28.8 pg (25.7-33.7); MCHC 34.3 g/dl (32.0-35.9); MEAN CELL VOLUME 84.1 fl (80-96); MEAN PLT VOLUME 7.7 fl (7.5-11.1); PLATELET COUNT 327 10^3/uL (134-434); RBC 3.92 M/mm3 (4.00-5.60); WHITE BLOOD COUNT 5.4 K/mm3 (4.0-10.0)
[2023-05-31] MEDS: PRENATAL VITAMINS W/ FOLIC ACID TABLET (FP) PO SCH (10:30)
[2023-05-31] MEDS: AMOX TR/POT CLAV 875MG/125MG TABLETS (FP) PO SCH ×2 (10:30→22:11)
[2023-05-31] MEDS: SERTRALINE HCL 50 MG TABLET (FP) PO SCH (10:30)
[2023-05-31] MEDS: NICOTINE 21 MG/24 HOURS TOPICAL PATCH TD SCH (10:30)
[2023-05-31] MEDS: NICOTINE POLACRILEX 2 MG GUM BUC PRN ×3 (10:31→22:11)
[2023-05-31] MEDS: IBUPROFEN 600 MG TABLET (FP) PO PRN (17:20)
[2023-05-31] MEDS: MELATONIN 5 MG TABLETS PO SCH (22:10)
[2023-05-31] MEDS: THIAMINE HCL 100 MG TABLET (FP) PO SCH (22:11)
[2023-06-01] MEDS: methaDONE HCL 40 MG DISPERSABLE TABLET PO SCH (05:50)
[2023-06-01] MEDS: GABAPENTIN 300 MG CAPSULE PO SCH ×3 (05:50→22:17)
[2023-06-01] MEDS: LORazepam 1 MG TABLET PO SCH ×4 (05:50→22:18)
[2023-06-01] MEDS: NICOTINE 21 MG/24 HOURS TOPICAL PATCH TD SCH (10:06)
[2023-06-01] MEDS: SERTRALINE HCL 50 MG TABLET (FP) PO SCH (10:06)
[2023-06-01] MEDS: AMOX TR/POT CLAV 875MG/125MG TABLETS (FP) PO SCH ×2 (10:06→22:16)
[2023-06-01] MEDS: PRENATAL VITAMINS W/ FOLIC ACID TABLET (FP) PO SCH (10:06)
[2023-06-01] MEDS: NICOTINE POLACRILEX 2 MG GUM BUC PRN ×3 (10:07→17:31)
[2023-06-01] MEDS: MELATONIN 5 MG TABLETS PO SCH (22:16)
[2023-06-01] MEDS: THIAMINE HCL 100 MG TABLET (FP) PO SCH (22:17)
[2023-06-01] MEDS: IBUPROFEN 600 MG TABLET (FP) PO PRN (22:17)
[2023-06-02] MEDS ORDERED: LORazepam 0.5 MG TABLET PO PRN
[2023-06-02] MEDS: LORazepam 0.5 MG TABLET PO SCH ×4 (05:50→22:15)
[2023-06-02] MEDS: methaDONE HCL 40 MG DISPERSABLE TABLET PO SCH (05:50)
[2023-06-02] MEDS: GABAPENTIN 300 MG CAPSULE PO SCH ×3 (06:18→22:14)
[2023-06-02] MEDS: PRENATAL VITAMINS W/ FOLIC ACID TABLET (FP) PO SCH (10:26)
[2023-06-02] MEDS: SERTRALINE HCL 50 MG TABLET (FP) PO SCH (10:27)
[2023-06-02] MEDS: AMOX TR/POT CLAV 875MG/125MG TABLETS (FP) PO SCH ×2 (10:27→22:14)
[2023-06-02] MEDS: NICOTINE 21 MG/24 HOURS TOPICAL PATCH TD SCH (10:28)
[2023-06-02] MEDS: NICOTINE POLACRILEX 2 MG GUM BUC PRN ×3 (10:28→17:34)
[2023-06-02] MEDS: IBUPROFEN 600 MG TABLET (FP) PO PRN (17:35)
[2023-06-02] MEDS: MELATONIN 5 MG TABLETS PO SCH (22:15)
[2023-06-02] MEDS: THIAMINE HCL 100 MG TABLET (FP) PO SCH (22:15)
[2023-06-03] MEDS ORDERED: LORazepam 0.5 MG TABLET PO ONE (05:00)
[2023-06-03] MEDS: methaDONE HCL 40 MG DISPERSABLE TABLET PO SCH (06:14)
[2023-06-03] MEDS: GABAPENTIN 300 MG CAPSULE PO SCH ×3 (06:15→22:33)
[2023-06-03] MEDS: PRENATAL VITAMINS W/ FOLIC ACID TABLET (FP) PO SCH (09:57)
[2023-06-03] MEDS: SERTRALINE HCL 50 MG TABLET (FP) PO SCH (09:57)
[2023-06-03] MEDS: AMOX TR/POT CLAV 875MG/125MG TABLETS (FP) PO SCH ×2 (09:57→22:33)
[2023-06-03] MEDS: NICOTINE 21 MG/24 HOURS TOPICAL PATCH TD SCH (09:57)
[2023-06-03] MEDS: NICOTINE POLACRILEX 2 MG GUM BUC PRN ×2 (14:06→20:05)
[2023-06-03] MEDS: THIAMINE HCL 100 MG TABLET (FP) PO SCH (22:33)
[2023-06-03] MEDS: MELATONIN 5 MG TABLETS PO SCH (22:34)
[2023-06-04] MEDS: GABAPENTIN 300 MG CAPSULE PO SCH (05:24)
[2023-06-04] MEDS: methaDONE HCL 40 MG DISPERSABLE TABLET PO SCH (05:25)
[2023-06-04 09:32] VITALS: RESP 18; TEMP 96.8
[2023-06-04 09:33] VITALS: BP 119/71; PULSE 82
[2023-06-04] MEDS: PRENATAL VITAMINS W/ FOLIC ACID TABLET (FP) PO SCH (09:41)
[2023-06-04] MEDS: SERTRALINE HCL 50 MG TABLET (FP) PO SCH (09:41)
[2023-06-04] MEDS: AMOX TR/POT CLAV 875MG/125MG TABLETS (FP) PO SCH (09:41)
[2023-06-04] MEDS: NICOTINE POLACRILEX 2 MG GUM BUC PRN (09:42)
[2023-06-04] MEDS: NICOTINE 21 MG/24 HOURS TOPICAL PATCH TD SCH (09:44)
== END 2023-06-04 09:49 | disposition home or self-care (01) | DRG 773 ==
LOC: YASAS 19:11 → Y3N 05-30 09:56 → Y6N 06-02 20:07
PROVIDERS: ADMIT Allergy & Immunology; ATTEND Allergy & Immunology
PROC: HZ2ZZZZ Detoxification Services for Substance Abuse Treatment (ICD-10-PCS; principal; 2023-05-30)
DX: F13.230 Sedative, hypnotic or anxiolytic dependence with withdrawal, uncomplicated (principal); F11.20 Opioid dependence, uncomplicated; F17.210 Nicotine dependence, cigarettes, uncomplicated; F19.282 Other psychoactive substance dependence with psychoactive substance-induced sleep disorder; F14.20 Cocaine dependence, uncomplicated; F41.8 Other specified anxiety disorders; B18.2 Chronic viral hepatitis C; K04.7 Periapical abscess without sinus; Z20.828 Contact with and (suspected) exposure to other viral communicable diseases
CPT/HCPCS: 0241U-QW; 36415; 85027; 86780; 87635; 87811; 93005; 93010

== ENCOUNTER 2023-12-21 11:27 | Inpatient (IN) | payer OTHER ==
[2023-12-21 11:50] VITALS: BMI 24.9
[2023-12-21] MEDS ORDERED: POLYETHYLENE GLYCOL (HEALTHYLAX) 3350 17 GM PACKET PO PRN (12:05)
[2023-12-21] MEDS ORDERED: guaiFENesin 600 MG TABLET.ER (FP) PO PRN (12:05)
[2023-12-21] MEDS ORDERED: NALOXONE HCL 0.4 MG/ML VIAL IM PRN (12:05)
[2023-12-21] MEDS ORDERED: LOPERAMIDE HCL 2 MG CAPSULE PO PRN (12:05)
[2023-12-21] MEDS ORDERED: METHOCARBAMOL 500 MG TABLET PO PRN (12:05)
[2023-12-21] MEDS ORDERED: IBUPROFEN 400 MG TABLET (FP) PO PRN (12:05)
[2023-12-21] MEDS ORDERED: DICYCLOMINE HCL 10 MG CAPSULE PO PRN (12:05)
[2023-12-21] MEDS ORDERED: BISMUTH SUBSALICYLATE 262 MG/15 ML BTL PO PRN (12:05)
[2023-12-21] MEDS ORDERED: BENZONATATE 200 MG CAPSULE PO PRN (12:05)
[2023-12-21] MEDS ORDERED: BENZOCAINE/MENTHOL (CHLORASEPTIC ) LOZENGE MM PRN (12:05)
[2023-12-21] MEDS ORDERED: hydrOXYzine PAMOATE 25 MG CAPSULE (FP) PO PRN (12:05)
[2023-12-21] MEDS ORDERED: MAG HYDROX/AL HYDROX/SIMETH 30 ML UNIT-DOSE CUP PO PRN (12:05)
[2023-12-21] MEDS ORDERED: MAGNESIUM HYDROX 2400MG/30ML ORAL SUSPENSION 30 ML CUP PO PRN (12:05)
[2023-12-21] MEDS ORDERED: NALOXONE (NARCAN) HCL 4 MG/0.1 ML SPRAY NS PRN (12:05)
[2023-12-21] MEDS ORDERED: ONDANSETRON *ODT* 4 MG TABLET SL PRN (12:05)
[2023-12-21] MEDS ORDERED: diazePAM 5 MG TABLET ONE (13:43)
[2023-12-21] MEDS ORDERED: PRENATAL VITAMINS W/ FOLIC ACID TABLET (FP) PO ONE (13:44)
[2023-12-21] MEDS: diazePAM 5 MG TABLET PO SCH (13:47)
[2023-12-21] MEDS: PRENATAL VITAMINS W/ FOLIC ACID TABLET (FP) PO SCH (13:48)
[2023-12-21] MEDS: NICOTINE POLACRILEX 4 MG LOZENGE BC PRN (17:02)
[2023-12-21] MEDS: IBUPROFEN 600 MG TABLET (FP) PO PRN (17:06)
[2023-12-21] MEDS: diazePAM 5 MG TABLET PO PRN (19:13)
[2023-12-21] MEDS: THIAMINE 100 MG TABLET PO SCH (22:00)
[2023-12-21] MEDS: MELATONIN 5 MG TABLETS PO SCH (22:00)
[2023-12-22] MEDS ORDERED: methaDONE HCL 40 MG DISPERSABLE TABLET PO SCH (10:00)
[2023-12-22] MEDS: SERTRALINE HCL 50 MG TABLET (FP) PO SCH (10:57)
[2023-12-22 11:16] LABS: POTASSIUM 3.7 mmol/L (3.5-5.1)
[2023-12-22 11:22] LABS: ALBUMIN 3.6 g/dl (3.4-5.0); CALCIUM 8.7 mg/dL (8.5-10.1)
[2023-12-22 11:24] LABS: HEMATOCRIT 31.5 % (35.4-49); HEMOGLOBIN 11.3 GM/dL (11.7-16.9); MCH 29.2 pg (25.7-33.7); MCHC 35.8 g/dl (32.0-35.9); MEAN CELL VOLUME 81.6 fl (80-96); MEAN PLT VOLUME 8.4 fl (7.5-11.1); PLATELET COUNT 239 10^3/uL (134-434); RBC 3.86 M/mm3 (4.00-5.60); RDW 12.8 % (11.9-15.9); WHITE BLOOD COUNT 3.3 K/mm3 (4.0-10.0)
[2023-12-22 11:26] LABS: BILIRUBIN,TOTAL 0.6 mg/dL (0.2-1); CREATININE 0.8 mg/dL (0.55-1.3)
[2023-12-22 11:28] LABS: TOT PROT 7.6 g/dl (6.4-8.2)
[2023-12-22] MEDS: GABAPENTIN 300 MG CAPSULE PO SCH (14:09)
[2023-12-22] MEDS: SUVOREXANT 10 MG TABLET PO PRN (22:38)
[2023-12-22] MEDS: ACETAMINOPHEN 325 MG TABLET (FP) PO PRN (22:38)
[2023-12-22] MEDS: LIDOCAINE VISCOUS 2% ORAL/TOP 15 ML UNIT-DOSE CUP MM PRN (23:47)
[2023-12-23] MEDS: diazePAM 5 MG TABLET PO SCH (07:13)
[2023-12-23] MEDS: LACTULOSE 20 GM/30 ML UDC (FOR ORAL USE ONLY) PO SCH (17:54)
[2023-12-24] MEDS: diazePAM 5 MG TABLET PO SCH (05:37)
[2023-12-25] MEDS: diazePAM 5 MG TABLET PO ONE (05:35)
[2023-12-25 08:43] VITALS: BP 142/89; PULSE 78; RESP 18; TEMP 97.3
== END 2023-12-25 12:12 | disposition other institution (70) | DRG 773 ==
LOC: YASAS 11:27 → Y6N 13:04
PROVIDERS: ADMIT Allergy & Immunology; ATTEND Surgery
PROC: HZ2ZZZZ Detoxification Services for Substance Abuse Treatment (ICD-10-PCS; principal; 2023-12-21)
DX: F10.230 Alcohol dependence with withdrawal, uncomplicated (principal); F11.20 Opioid dependence, uncomplicated; F13.20 Sedative, hypnotic or anxiolytic dependence, uncomplicated; F14.20 Cocaine dependence, uncomplicated; F17.210 Nicotine dependence, cigarettes, uncomplicated; F19.282 Other psychoactive substance dependence with psychoactive substance-induced sleep disorder; F19.24 Other psychoactive substance dependence with psychoactive substance-induced mood disorder; F32.A Depression, unspecified; F41.9 Anxiety disorder, unspecified; B18.2 Chronic viral hepatitis C; R79.89 Other specified abnormal findings of blood chemistry; Z86.2 Personal history of diseases of the blood and blood-forming organs and certain disorders involving the immune mechanism; Z88.8 Allergy status to other drugs, medicaments and biological substances
CPT/HCPCS: 36415; 80053; 80305; 80307; 82140; 85027; 86780; 87811; 93005; 93010

== ENCOUNTER 2023-12-25 12:29 | Inpatient (IN) | payer OTHER ==
[2023-12-25] MEDS ORDERED: MAG HYDROX/AL HYDROX/SIMETH 30 ML UNIT-DOSE CUP PO PRN (14:06)
[2023-12-25] MEDS ORDERED: METHOCARBAMOL 500 MG TABLET PO PRN (14:06)
[2023-12-25] MEDS ORDERED: POLYETHYLENE GLYCOL (HEALTHYLAX) 3350 17 GM PACKET PO PRN (14:06)
[2023-12-25] MEDS ORDERED: NALOXONE (NARCAN) HCL 4 MG/0.1 ML SPRAY NS PRN (14:06)
[2023-12-25] MEDS ORDERED: IBUPROFEN 400 MG TABLET (FP) PO PRN (14:06)
[2023-12-25] MEDS ORDERED: NALOXONE HCL 0.4 MG/ML VIAL IVPUSH PRN (14:06)
[2023-12-25] MEDS ORDERED: ACETAMINOPHEN 325 MG TABLET (FP) PO PRN (14:06)
[2023-12-25] MEDS ORDERED: MAGNESIUM HYDROX 2400MG/30ML ORAL SUSPENSION 30 ML CUP PO PRN (14:06)
[2023-12-25] MEDS ORDERED: LOPERAMIDE HCL 2 MG CAPSULE PO PRN (14:06)
[2023-12-25] MEDS ORDERED: guaiFENesin 600 MG TABLET.ER (FP) PO PRN (14:06)
[2023-12-25] MEDS ORDERED: BENZOCAINE/MENTHOL (CHLORASEPTIC ) LOZENGE MM PRN (14:06)
[2023-12-25] MEDS ORDERED: BENZONATATE 200 MG CAPSULE PO PRN (14:06)
[2023-12-25] MEDS: hydrOXYzine PAMOATE 25 MG CAPSULE (FP) PO PRN (16:43)
[2023-12-25] MEDS: IBUPROFEN 600 MG TABLET (FP) PO PRN (16:43)
[2023-12-25] MEDS: NICOTINE POLACRILEX 4 MG LOZENGE BC PRN (16:46)
[2023-12-25] MEDS: GABAPENTIN 300 MG CAPSULE PO SCH (21:14)
[2023-12-25] MEDS: THIAMINE 100 MG TABLET PO SCH (21:14)
[2023-12-25] MEDS: SUVOREXANT 10 MG TABLET PO PRN (21:15)
[2023-12-25] MEDS ORDERED: MELATONIN 5 MG TABLETS PO SCH (22:00)
[2023-12-26] MEDS: SERTRALINE HCL 50 MG TABLET (FP) PO SCH (09:08)
[2023-12-26] MEDS: NICOTINE 21 MG/24 HOURS TOPICAL PATCH TD SCH (09:08)
[2023-12-26] MEDS: PRENATAL VITAMINS W/ FOLIC ACID TABLET (FP) PO SCH (09:08)
[2023-12-26] MEDS ORDERED: methaDONE HCL 40 MG DISPERSABLE TABLET PO SCH (10:00)
[2023-12-28] MEDS ORDERED: BENZOCAINE 20 % GEL TUBE MM PRN (15:25)
[2023-12-28] MEDS: AMOX TR/POT CLAV 500MG/125MG TABLETS (FP) PO SCH (17:39)
[2023-12-28] MEDS: SUVOREXANT 10 MG TABLET PO PRN (21:13)
[2023-12-29 07:12] VITALS: RESP 16
[2023-12-30 06:36] VITALS: TEMP 96.9
[2023-12-30] MEDS: SUVOREXANT 10 MG TABLET PO PRN (21:14)
[2023-12-30] MEDS: NICOTINE POLACRILEX 4 MG GUM BUC PRN (21:15)
[2023-12-31 06:55] VITALS: BP 123/76; PULSE 88
== END 2023-12-31 09:00 | disposition home or self-care (01) | DRG 772 ==
LOC: YASAS 12:29 → Y3W 12:30
PROVIDERS: ADMIT Allergy & Immunology; ATTEND Psychiatry & Neurology Pain Medicine
PROC: HZ42ZZZ Group Counseling for Substance Abuse Treatment, Cognitive-Behavioral (ICD-10-PCS; principal; 2023-12-25)
DX: F10.20 Alcohol dependence, uncomplicated (principal); F11.20 Opioid dependence, uncomplicated; F14.20 Cocaine dependence, uncomplicated; F15.20 Other stimulant dependence, uncomplicated; F17.210 Nicotine dependence, cigarettes, uncomplicated; F19.282 Other psychoactive substance dependence with psychoactive substance-induced sleep disorder; F19.24 Other psychoactive substance dependence with psychoactive substance-induced mood disorder; F41.8 Other specified anxiety disorders; K02.9 Dental caries, unspecified; K04.7 Periapical abscess without sinus; R79.89 Other specified abnormal findings of blood chemistry; Z88.2 Allergy status to sulfonamides
CPT/HCPCS: 82140